=== PATIENT | male | born 1960 | race Caucasian/White ===

== ENCOUNTER 2016-12-11 21:40 | Emergency (ER) | payer OTHER ==
[~2016-12-11] VITALS: Ht 179.1 cm; Wt 106.0 kg
[~2016-12-11 21:40] MED LIST: BNC40 PO; EZET10TA63 PO
[2016-12-11 21:45] VITALS: TEMP 36.4; Ht 179.1 cm; Wt 106.0 kg
[2016-12-11] MEDS ORDERED: SODIUM CHLORIDE 0.9% 1000ML 1,000 ML IV STA (21:59)
[2016-12-11] MEDS ORDERED: ONDANSETRON INJ 2 MG/ML 2 ML VIAL IV STA (21:59)
[2016-12-11] MEDS ORDERED: HYDROmorphone INJ 1 MG/ML SYR IV STA (21:59)
[2016-12-11] MEDS ORDERED: OPTIRAY 320 IV PRN (22:15)
[2016-12-11] MEDS ORDERED: METF-383 PO (22:19)
[2016-12-11] MEDS ORDERED: CLB/200 PO (22:19)
[2016-12-11] MEDS ORDERED: LOSA50TA6 PO (22:19)
[2016-12-11 22:32] LABS: BASO % 0.1 %; BASO ABS # 0.01 K/uL (0-0.2); COMPLETE YES; EOS % 1.5 %; HEMATOCRIT 42.4 % (42-52); IG% 0.7 %; LYMPH % 24.5 %; LYMPH ABS # 2.31 K/uL (1.2-3.4); MEAN CELL VOLUME 85.7 fL (80-100); MEAN CORPUSCULAR HEMOGLOBIN 30.5 pg (25-34); MEAN CORPUSCULAR HGB CONC 35.6 g/dl (32-36); MEAN PLATELET VOLUME 9.6 fL (7.4-10.4); MONO % 7.5 %; NEUT % 65.7 %; PLATELET COUNT 207 K/uL (130-400); RED BLOOD COUNT 4.95 M/uL (4.7-6.1); WHITE BLOOD COUNT 9.42 K/uL (4.8-10.8)
[2016-12-11 22:35] LABS: URINE APPEARANCE CLEAR (CLEAR); URINE BILIRUBIN NEG (NEG); URINE COLOR DK YELLOW; URINE NITRITE NEG (NEG); URINE SPECIFIC GRAVITY 1.031 (1.000-1.030); UROBILINOGEN NEG (NEG); ZZUR CULT IF INDIC CLEAN CATCH NO
[2016-12-11 22:37] LABS: MANUAL MICROSCOPIC REQUIRED? NO; REVIEW REQ? NO
[2016-12-11 22:43] LABS: ALT/SGPT 131 U/L (12-78); BLOOD UREA NITROGEN 19 mg/dl (7-18); BUN/CREATININE RATIO 19.2 (10-20); CARBON DIOXIDE 23 mmol/L (21-32); CHLORIDE 105 mmol/L (98-107); GLUCOSE 220 mg/dl (70-99); POTASSIUM 3.9 mmol/L (3.5-5.1); SODIUM 138 mmol/L (136-145)
[2016-12-11 22:46] LABS: ALKALINE PHOSPHATASE 91 U/L (45-117); AST/SGOT 115 U/L (15-37)
[2016-12-11 22:54] LABS: CALCIUM 8.6 mg/dl (8.5-10.1)
[2016-12-11] MEDS ORDERED: DiphenhydrAMINE HCL 50 MG/ML VIAL IV STA (23:01)
[2016-12-11] MEDS ORDERED: METHYLPREDNISOLONE 125 MG VIAL IV STA (23:01)
[2016-12-12] MEDS ORDERED: HYDROmorphone INJ 0.5 MG/0.5 ML SYR IV STA (00:23)
[2016-12-12] MEDS ORDERED: ONDANSETRON INJ 2 MG/ML 2 ML VIAL IV STA (00:23)
[2016-12-12] MEDS ORDERED: ONDANSETRON HOME PACK 4MG OD TAB PO ONE (03:45)
[2016-12-12] MEDS ORDERED: OXYCODONE IR HOME PACK PO ONE (03:45)
[2016-12-12] MEDS ORDERED: OXYC1TAB3 PO (03:56)
[2016-12-12] MEDS ORDERED: ONDA4TAB10 SL (03:56)
--- NOTE | 2016-12-12 04:01 | EMERGENCY ROOM VISIT NOTE ---
History First contact with patient: 21:52 Chief Complaint: ABDOMINAL PAIN Stated Complaint: R FLANK PAIN, ABD PAIN Nursing Triage Summary: Rt side abdominal/flank pain starting two days ago. Increased tonight with nausea/vomiting, pain 10/10 History of Present Illness The patient is a 56 year old male who presents to the Emergency Room with complaints of right-sided abdominal pain which began 3 days ago. The patient states his pain worsened today. He reports the pain is in the middle right abdomen. He has associated nausea and vomiting. He denies any urinary symptoms , changes in bowel movements, chest pain or shortness of breath. The patient denies any history of abdominal surgeries. He rates his overall discomfort a 10 /10. He has not taken any medication for the pain. He reports that he is unable to find a comfortable position. Review of Systems A complete 10 point review of systems was reviewed with the patient with pertinent positives and negatives as per history of present illness. All else were negative. Social History Smoking Status: Unknown if Ever Smoked Current/Historical Medications Scheduled Celecoxib (CeleBREX), 200 MG PO DAILY Ezetimibe (Zetia), 10 MG PO DAILY Losartan Potassium (Cozaar), 50 MG PO DAILY Metformin Hcl (Glucophage), 850 MG PO BID Ondasetron Odt (Zofran Odt), 4 MG SL Q6H Scheduled PRN Oxycodone Ir (Roxicodone Ir), 1-2 TAB PO Q4H PRN for Pain Allergies Coded Allergies: Morphine (Verified Allergy, Mild, 12/11/16) Latex (Unverified Allergy, Unknown, UNKNOWN, 12/11/16) Latex1 -Allergic Contact Dermititis (Unverified Allergy, Unknown, unknown , 12/11/16) Physical Exam Vital Signs Date Time Temp Pulse Resp B/P (MAP) Pulse Ox O2 Delivery O2 Flow Rate FiO2 12/12/16 04:04 84 20 154/70 100 12/12/16 02:19 65 18 152/87 97 Room Air 12/11/16 23:58 84 18 142/83 98 Room Air 12/11/16 21:45 36.4 73 20 158/92 98 Room Air Physical Exam VITALS: Vitals are noted on the nurse's note and reviewed by myself. Vital signs stable. GENERAL: This is a 56-year-old male, in no acute distress, nondiaphoretic, well- developed well-nourished. SKIN: No rashes noted. HEART: Regular rate and rhythm without murmurs gallops or rubs. LUNGS: Clear to auscultation bilaterally without wheezes, rales or rhonchi. ABDOMEN: Positive bowel sounds x 4. Soft, moderate tenderness to palpation over the right mid abdomen. No guarding or rebound tenderness. NEURO: Patient was alert and oriented to person place and time. Medical Decision & Procedures ER Provider Diagnostic Interpretation: CT ABDOMEN & PELVIS: The visualized lower thorax demonstrates dependent atelectasis. Hepatic steatosis. Probable adenomyomatosis of the gallbladder fundus. The spleen, pancreas, and adrenal glands are unremarkable. Probable simple cysts within the left kidney. Otherwise, the kidneys, ureters and urinary bladder are unremarkable. The appendix is unremarkable. The stomach, small bowel, colon are unremarkable. No acute osseous abnormality. Radiologist: Ilir Nicole MD US RUQ: Mild hepatomegaly with increased echogenicity suggesting hepatic steatosis. Within the gallbladder fundus there is mild thickening which may be secondary to under distention, sludge, stones or adenomyomatosis. No gallbladder wall thickening or pericholecystic fluid. The common bile duct is within normal limits measured 2.7 mm. The right kidney is unremarkable. Radiologist: Ilir Nicole MD Laboratory Results 12/11/16 22:08 Red Blood Count 4.95, Mean Corpuscular Volume 85.7, Mean Corpuscular Hemoglobin 30.5, Mean Corpuscular Hemoglobin Concent 35.6, Mean Platelet Volume 9.6, Neutrophils (%) (Auto) 65.7, Lymphocytes (%) (Auto) 24.5, Monocytes (%) (Auto) 7.5, Eosinophils (%) (Auto) 1.5, Basophils (%) (Auto) 0.1, Neutrophils # (Auto) 6.18, Lymphocytes # (Auto) 2.31, Monocytes # (Auto) 0.71, Eosinophils # (Auto) 0.14, Basophils # (Auto) 0.01 12/11/16 22:08 Test 12/11/16 22:08 12/11/16 22:25 White Blood Count 9.42 K/uL (4.8-10.8) Red Blood Count 4.95 M/uL (4.7-6.1) Hemoglobin 15.1 g/dL (14.0-18.0) Hematocrit 42.4 % (42-52) Mean Corpuscular Volume 85.7 fL (80-100) Mean Corpuscular Hemoglobin 30.5 pg (25-34) Mean Corpuscular Hemoglobin Concent 35.6 g/dl (32-36) Platelet Count 207 K/uL (130-400) Mean Platelet Volume 9.6 fL (7.4-10.4) Neutrophils (%) (Auto) 65.7 % Lymphocytes (%) (Auto) 24.5 % Monocytes (%) (Auto) 7.5 % Eosinophils (%) (Auto) 1.5 % Basophils (%) (Auto) 0.1 % Neutrophils # (Auto) 6.18 K/uL (1.4-6.5) Lymphocytes # (Auto) 2.31 K/uL (1.2-3.4) Monocytes # (Auto) 0.71 K/uL (0.11-0.59) Eosinophils # (Auto) 0.14 K/uL (0-0.5) Basophils # (Auto) 0.01 K/uL (0-0.2) RDW Standard Deviation 38.5 fL (36.4-46.3) RDW Coefficient of Variation 12.5 % (11.5-14.5) Immature Granulocyte % (Auto) 0.7 % Immature Granulocyte # (Auto) 0.07 K/uL (0.00-0.02) Anion Gap 10.0 mmol/L (3-11) Est Creatinine Clear Calc Drug Dose 102.6 ml/min Estimated GFR () 97.8 Estimated GFR (Non- 84.4 BUN/Creatinine Ratio 19.2 (10-20) Calcium Level 8.6 mg/dl (8.5-10.1) Total Bilirubin 0.8 mg/dl (0.2-1) Aspartate Amino Transf (AST/SGOT) 115 U/L (15-37) Alanine Aminotransferase (ALT/SGPT) 131 U/L (12-78) Alkaline Phosphatase 91 U/L (45-117) Troponin I < 0.015 ng/ml (0-0.045) Total Protein 7.2 gm/dl (6.4-8.2) Albumin 3.6 gm/dl (3.4-5.0) Globulin 3.6 gm/dl (2.5-4.0) Albumin/Globulin Ratio 1.0 (0.9-2) Lipase 235 U/L (73-393) Urine Color DK YELLOW Urine Appearance CLEAR (CLEAR) Urine pH 5.0 (4.5-7.5) Urine Specific [place] 1.031 (1.000-1.030) Urine Protein NEG (NEG) Urine Glucose (UA) NEG (NEG) Urine Ketones TRACE (NEG) Urine Occult Blood NEG (NEG) Urine Nitrite NEG (NEG) Urine Bilirubin NEG (NEG) Urine Urobilinogen NEG (NEG) Urine Leukocyte Esterase NEG (NEG) Medications Administered Medications (Trade) Dose Ordered Sig/Hina Route Start Time Stop Time Status Last Admin Dose Admin Sodium Chloride 1,000 ml @ 999 mls/hr Q1H1M STAT IV 12/11/16 21:59 12/11/16 22:59 DC 12/11/16 22:19 999 MLS/HR Ondansetron HCl (Zofran Inj) 4 mg NOW STAT IV 12/11/16 21:59 12/11/16 22:01 DC 12/11/16 22:19 4 MG Hydromorphone HCl (Dilaudid Inj) 1 mg NOW STAT IV 12/11/16 21:59 12/11/16 22:01 DC 12/11/16 22:19 1 MG Methylprednisolone Sodium Succinate (Solu-Medrol IV) 125 mg NOW STAT IV 12/11/16 23:01 12/11/16 23:02 DC 12/11/16 23:08 125 MG Diphenhydramine HCl (Benadryl Inj) 25 mg NOW STAT IV 12/11/16 23:01 12/11/16 23:02 DC 12/11/16 23:08 25 MG Hydromorphone HCl (Dilaudid Inj) 0.5 mg NOW STAT IV 12/12/16 00:23 12/12/16 00:24 DC 12/12/16 00:31 0.5 MG Ondansetron HCl (Zofran Inj) 4 mg NOW STAT IV 12/12/16 00:23 12/12/16 00:24 DC 12/12/16 00:32 4 MG Oxycodone HCl (Roxicodone Immediate Rel 5MG Home Pack) 1 homepack UD ONCE PO 12/12/16 03:45 12/12/16 03:46 DC 12/12/16 03:54 1 HOMEPACK Ondansetron HCl (ZOFRAN ODT 4MG Home Pack) 1 homepack UD ONCE PO 12/12/16 03:45 12/12/16 03:46 DC 12/12/16 03:54 1 HOMEPACK ECG Rate (beats per minute): 63 Rhythm: normal sinus Findings: no acute ischemic change, no ectopy ED Course The patient was evaluated as above. Labs were drawn and IV access was obtained. Patient was medicated with 1 L normal saline solution, 1 mg Dilaudid IV and 4 mg Zofran IV. Patient was premedicated with 125 mg IV Medrol and [address] to CT scan. Patient was reevaluated and had mild continued pain. He was given 0.5 mg Dilaudid. Patient was reevaluated and pain has almost resolved. I discussed options of care including admission versus discharge with close follow-up. The patient prefers to be discharged home. Discharge instructions were reviewed with the patient. The patient verbalized understanding of my assessment and treatment plan and was discharged home in good condition. Medical Decision Differential diagnosis includes acute cholecystitis, pancreatitis, hepatitis, renal calculus, pyelonephritis, appendicitis, among others. The patient is a 56-year-old male who presents today complaining of right-sided abdominal pain she did appear very uncomfortable on initial examination but improved after pain medication. Labs revealed no leukocytosis or anemia. LFTs are elevated. Bilirubin within normal limits. Urinalysis was not suggestive of infection and does not show any blood. CT was initially performed to rule out appendicitis and was negative. It did show possible adenomyomatosis of the gallbladder. Right upper quadrant ultrasound was then performed and again demonstrated and no myomatosis and possible sludge within the gallbladder. Given this and the elevated LFTs, I do feel the patient needs further testing. However, the patient is comfortable and I do feel he can have this performed as an outpatient. The patient is from the [facility] and would prefer to follow up there. He was instructed to call his PCP today to arrange follow-up. He was given pain and nausea medication at home. He was instructed to return for worsening of his current condition or any new/concerning symptoms. The patient's case was reviewed with Dr. Ellis, ED attending physician, who agreed with my assessment and treatment plan. Based on the patient's presentation and work up, I feel the patient is stable for outpatient treatment. The patient was educated to return to the emergency department for any worsening of their current condition or new/concerning symptoms. He will follow up with his PCP today. Medication reconciliation: I attest that I have personally reviewed the patient 's current medication list. Blood pressure screening: Patient was found to have an elevated blood pressure and was referred to their primary care provider for recheck and further treatment. [place] Drug Monitoring Program Search Results: patient reviewed within database, no issues identified Impression Primary Impression: Right sided abdominal pain Departure Information Dispostion Home / Self-Care Condition GOOD Prescriptions Ondasetron Odt (ZOFRAN ODT) 4 Mg Tab 4 MG SL Q6H for Nausea, #15 TAB Prov: Mary Young PA-C 12/12/16 Oxycodone Ir (Roxicodone Ir) 5 Mg Tab 1-2 TAB PO Q4H Y for Pain, #15 TAB For Initial Treatment Prov: Mary Young PA-C 12/12/16 Referrals Moisés Morin M.D. (PCP) Patient Instructions My [facility] Additional Instructions You have been treated in the Emergency Department your Abdominal Pain. Laboratory results and imaging studies have ruled out any emergent causes for your abdominal pain which would warrant admission or surgery. You have been prescribed OxyIR to be used for pain control. This is a narcotic medication. You cannot drive or consume alcohol while on this medicine. This medicine should only be used for pain that cannot be controlled with over-the- counter pain medicines. You have been prescribed Zofran to be used for any nausea or vomiting. Take as prescribed. For pain control, you can use the following [id number] medicines (if >12 yo): - Regular strength (325mg/tab) Tylenol (acetaminophen) 2 tabs every 4-6 hours as needed. Do not exceed 12 tablets in a 24 hour period. Avoid taking more than 4 grams (4000 mg) of Tylenol per day. This includes any other sources of acetaminophen you may take on a regular basis. - Regular strength (200 mg/tab) Advil (ibuprofen) 1-2 tabs every 4-6 hours as needed. Do not exceed a dose of 3200 mg per day. Drink plenty of water and stay well hydrated. Call your primary care provider later this morning to schedule follow-up. Return to the emergency department if your symptoms persist despite treatment plan outlined above or if the following symptoms occur: Fevers, vomiting, worsening abdominal pain or any other new/concerning symptoms.
[2016-12-12 04:04] VITALS: BP 154/70; PULSE 84; O2SAT 100
--- NOTE | 2016-12-12 06:46 | DIAGNOSTIC IMAGING REPORT ---
Right upper quadrant ultrasound GALLBLADDER-ABD LIMITED CLINICAL HISTORY: right abd pain, vomiting pain. Nausea. TECHNIQUE: Ultrasound COMPARISON STUDY: None FINDINGS: Fatty infiltration of liver. Slight gallbladder wall thickening. Possible trace gallbladder sludge. Number caliber common bile duct 3 mm. Pancreas and right kidney are unremarkable. IMPRESSION: 1. Fatty infiltration of liver. 2. Slight prominence of the gallbladder wall 3 mm. 3. Trace gallbladder sludge. Electronically signed by: Chicho Ochoa M.D. 12/12/2016 6:45 AM Dictated Date/Time: 12/12/2016 6:44 AM
--- NOTE | 2016-12-12 07:42 | DIAGNOSTIC IMAGING REPORT ---
CT SCAN OF THE ABDOMEN AND PELVIS WITH IV CONTRAST CLINICAL HISTORY: Right lower quadrant abdominal pain. Vomiting. COMPARISON STUDY: No priors. TECHNIQUE: Following the IV administration of 93 cc of Optiray 320, CT scan of the abdomen and pelvis is performed from the lung bases to the proximal femora. Images are reviewed in the axial, sagittal, and coronal planes. IV contrast was administered without complication. Automated dose control exposure was utilized. CT DOSE: 1190.07 mGy.cm FINDINGS: Lung bases: The heart is top normal in size and without pericardial effusion. There are coronary artery calcifications. The lung bases are clear noting minimal dependent atelectasis. There is a tiny hiatal hernia. Liver: The contrast-enhanced liver is enlarged, measuring 19.7 cm in length. The liver demonstrates diffusely diminished attenuation consistent with hepatic steatosis. Fatty sparing is seen adjacent to gallbladder fossa. There is no intrahepatic biliary ductal dilatation. The hepatic veins and portal veins are patent. Gallbladder: Adenomyomatosis is noted in the gallbladder fundus. The gallbladder is otherwise normal in appearance. Spleen: Normal in size and attenuation. Pancreas: Unremarkable. Adrenal glands: Unremarkable. Kidneys: The contrast enhanced kidneys demonstrate mild cortical atrophy and are without hydronephrosis. The kidneys enhance symmetrically. A 5.4 cm cyst or adjacent cyst is noted in the left upper pole. Abdominal vasculature: The abdominal aorta is normal in course and caliber noting mild atherosclerotic calcification. Bowel: The small bowel and colon are normal in course and caliber. There is mild sigmoid diverticulosis without CT evidence of acute diverticulitis. The appendix is well-visualized and normal. Peritoneum: There is no intraperitoneal free air or abdominal ascites. There is a small fat-containing umbilical hernia. Lymphadenopathy: None. Pelvic viscera: There is median lobe hypertrophy of the prostate gland. The bladder is normal as visualized. Skeletal structures: There is mild lumbosacral spondylosis. No lytic or blastic lesions are seen. IMPRESSION: 1. There are no acute infectious or inflammatory findings in the abdomen or pelvis. 2. Hepatomegaly and severe hepatic steatosis. 3. Additional findings as above. Electronically signed by: Bret Infante M.D. 12/12/2016 7:41 AM Dictated Date/Time: 12/12/2016 7:35 AM
== END 2016-12-12 04:06 | disposition home or self-care (01) ==
LOC: C.EDB 21:41
DX: R10.30 Lower abdominal pain, unspecified (principal); Z79.899 Other long term (current) drug therapy; Z88.5 Allergy status to narcotic agent; Z91.040 Latex allergy status

== ENCOUNTER 2019-02-03 12:01 | Inpatient (IN) ==
[2019-02-03] MEDS ORDERED: ASPIRIN CHEW 324 MG PO STA (12:15)
[2019-02-03] MEDS: NITROGLYCERIN SL 0.4 MG/TAB TAB SL PRN ×3 (12:20→12:40)
[2019-02-03 12:22] LABS: Basophils # (auto) 0.03 K/uL (0-0.2); Basophils % (auto) 0.3 %; Eosinophils # (auto) 0.07 K/uL (0-0.5); Eosinophils % (auto) 0.6 %; Hematocrit (blood only) 42.7 % (42-52); Hemoglobin 14.9 g/dL (14.0-18.0); Immature Granulocytes # (auto) 0.14 K/uL (0.00-0.02); Immature Granulocytes % (auto) 1.3 %; Lymphocytes # (auto) 3.39 K/uL (1.2-3.4); Lymphocytes % (auto) 31.1 %; Mean Corpuscular Hgb Conc 34.9 g/dL (32-36); Mean Corpuscular Volume 86.4 fL (80-100); Mean Platelet Volume 9.7 fL (7.4-10.4); Monocytes # (auto) 0.83 K/uL (0.11-0.59); Monocytes % (auto) 7.6 %; Neutrophils # (auto) 6.44 K/uL (1.4-6.5); Neutrophils % (auto) 59.1 %; Platelet Count 228 K/uL (130-400); RDW Coefficient of Variation 12.9 % (11.5-14.5); RDW Standard Deviation 40.9 fL (36.4-46.3); Red Blood Count 4.94 M/uL (4.7-6.1)
[2019-02-03] MEDS ORDERED: MoRPHine SULFATE 2 MG/ML CARP IV STA (12:32)
[2019-02-03] MEDS ORDERED: DiphenhydrAMINE HCL 50 MG/ML VIAL IV STA (12:32)
[2019-02-03] MEDS ORDERED: LORazepam 1 MG/2 ML VIAL IV STA (12:32)
[2019-02-03 12:33] LABS: Partial Thromboplastin Ratio 0.8; Partial Thromboplastin Time 21.3 Seconds (21.0-31.0); Prothrombin Time 10.2 Seconds (9.0-12.0)
[2019-02-03 12:39] LABS: BUN Creatinine Ratio 18.8 (10-20); Blood Urea Nitrogen 22 mg/dl (7-18); Calcium 9.2 mg/dl (8.5-10.1); Carbon Dioxide 23 mmol/L (21-32); Chloride 107 mmol/L (98-107); Creatinine Clr Calc Pharmacy 87.8 ml/min; D Dimer 600 ug/L FEU (0-500); Est GFR (African American) 78.9; Est GFR (Non-African American) 68.1; Glucose 189 mg/dl (70-99); Potassium 4.1 mmol/L (3.5-5.1); Sodium 139 mmol/L (136-145)
[2019-02-03 12:44] LABS: Troponin I < 0.015 ng/ml (0-0.045)
[2019-02-03] MEDS ORDERED: HEPARIN (PORCINE) 1000 UNIT/ML 10 ML (CATH LAB USE ONLY) ONE (12:48)
[2019-02-03] MEDS ORDERED: fentaNYL citrate 100 MCG/2 ML VIAL ONE ×2 (12:48→13:13)
[2019-02-03] MEDS ORDERED: NiCARDipine HCL INJ 2.5 MG/ML 10 ML AMP ONE (12:48)
[2019-02-03] MEDS ORDERED: MIDAZOLAM HCL 1 MG/ML 2ML VIAL ONE ×3 (12:48→13:31)
[2019-02-03] MEDS ORDERED: NITROGLYCERIN/D5W 100MCG/ML 20ML SYR ONE (12:49)
--- NOTE | 2019-02-03 12:55 | XRay Report ---
XR chest 1V portable CLINICAL HISTORY: Chest Pain pain COMPARISON STUDY: No previous studies for comparison. FINDINGS: The bones soft tissues and hemidiaphragms are normal. The cardiomediastinal silhouette is n ormal. The lungs are clear. The pulmonary vasculature is normal. IMPRESSION: Negative chest. The above report was generated using voice recognition software. It may contain grammatical, syntax or spelling errors. Electronically signed by: Chicho Ochoa M.D. 02/03/2019 12:54 PM
--- NOTE | 2019-02-03 13:01 | Cardiology Consultation ---
Date of Consultation February 03, 2019 Assessment & Plan (1) ST elevation MO (STEMI): Presentation consistent with possible ACS and recommend proceeding with emergent cardiac catheterization and likely primary PCI. No apparent contraindications to procedure. Discussed risks, benefits, alternatives of procedure with patient and they are willing to proceed. Further recommendations pending findings of coronary angiography. History of Present Illness History of Present Illness 58-year-old man here with acute chest pain and ECG concerning for acute MO. Patient seen emergently in the ED after heart alert activated after serial EKGs showed lateral ST changes. No prior cardiac history. Cardiac risk factors include hypertension, dyslipidemia, [id number] diabetes. Family history of heart disease involving his father. Patient with 10 out of 10 chest pain and associated nausea diaphoresis. Denies similar symptoms in the past. Pain began around 12 PM occurring at rest. Allergies Allergy/AdvReac Type Severity Reaction Status Date / Time morphine Allergy Mild Verified 06/30/18 15:30 latex Allergy Unknown UNKNOWN Unverified 06/30/18 15:30 Home Medications Home Medications Medication Instructions Recorded Confirmed Type Ezetimibe (Zetia) 10 mg PO DAILY #0 04/19/07 History CELECOXIB (CeleBREX) 200 mg PO DAILY #0 cap 12/11/16 History LOSARTAN POTASSIUM (COZAAR) 50 mg PO DAILY #0 tab 12/11/16 History METFORMIN HCL (GLUCOPHAGE) 850 mg PO BID #0 tab 12/11/16 History Patient History Medical History Obesity (BMI 30.0-34.9) DM II (diabetes mellitus, type II), controlled HLD (hyperlipidemia) HTN (hypertension) ST elevation MO (STEMI) (Acute) Diabetes HLD (hyperlipidemia) HTN (hypertension) Family History Other Coronary heart disease H/O heart artery stent Heart disease Hypertension Social History Preferred Language: Kenyan Communication Ability: Effective 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 Beliefs That Will Affect Care: None marital status: Current Living Situation: Spouse current occupational status: employed Other Information That Helps Us Care for You: No Feels Safe at Home: Yes Safety Concerns: Feels Safe At This Time Smoking Status: Never smoker Hx Alcohol Use: Yes Alcohol Intake Frequency: Holidays/Special Occasions Hx Substance Use: No Review of Systems Review of Systems: All systems reviewed & are unremarkable except as noted in HPI & below Physical Exam Physical Exam: General: Significant chest pain, diaphoretic, distress Eyes: Sclerae anicteric, Lungs: Clear to auscultation bilaterally Cardiac: Regular rate and rhythm, no murmurs Vascular: 2+ radial Abdomen: Soft, nontender, nondistended, positive bowel sounds. Extremities: Well perfused, no peripheral edema Skin: No rashes or lesions. Neuro: Nonfocal Psych: Alert orient x3, normal affect and mood Results & Data Vital Signs (Past 12 Hours) Vital Signs Temp Pulse Pulse Resp BP BP Pulse Ox 02/03/19 12:53 57 L 14 97 02/03/19 12:41 55 L 14 99 02/03/19 12:39 63 19 114/56 L 99 02/03/19 12:30 62 19 95/67 L 99 02/03/19 12:23 73 24 139/86 98 02/03/19 12:22 63 24 139/86 99 02/03/19 12:20 68 17 02/03/19 12:10 68 19 98 02/03/19 12:02 36.5 C 71 20 165/92 H 98 PG Care Time/CCT Total # of Minutes Spent Total Time Spent with Patient: Total time spent is greater than 50% in coordination of care (as documented) at patient's floor/unit and/or counseling patient: (1) ST elevation MO (STEMI) Involved coronary artery: unspecified coronary artery Qualified Code(s): I21.3 - ST elevation (STEMI) myocardial infarction of unspecified site
[2019-02-03] MEDS ORDERED: EPTIFIBATIDE 0.75 MG/ML 75MG VIAL (CATH LAB USE ONLY) ONE (13:42)
[2019-02-03] MEDS ORDERED: EPTIFIBATIDE 2 MG/ML 10 ML VIAL (CATH LAB USE ONLY) ONE (13:42)
[2019-02-03] MEDS ORDERED: TICAGRELOR 90 MG TAB PO ONE (13:43)
[2019-02-03] MEDS ORDERED: ONDANSETRON INJ 2 MG/ML 2 ML VIAL IV PRN ×2 (13:48→14:11)
[2019-02-03] MEDS ORDERED: ICU PROTOCOL FOR HYPERGLYCEMIA PRN ×2 (13:53→14:38)
[2019-02-03] MEDS ORDERED: SODIUM CHLORIDE 0.9% 1000ML 1,000 ML IV SCH (14:00)
--- NOTE | 2019-02-03 14:00 | Pre Anesthesia Assessment ---
Date of Service February 03, 2019 Pre Sedation Assessment Vital Signs Temp Pulse Pulse Resp BP BP Pulse Ox 02/03/19 13:02 57 L 26 H 95 02/03/19 12:53 57 L 14 97 02/03/19 12:41 55 L 14 99 02/03/19 12:39 63 19 114/56 L 99 02/03/19 12:30 62 19 95/67 L 99 02/03/19 12:23 73 24 139/86 98 02/03/19 12:22 63 24 139/86 99 02/03/19 12:20 68 17 02/03/19 12:10 68 19 98 02/03/19 12:02 36.5 C 71 20 165/92 H 98 Cardiovascular RRR, no murmur, no edema Respiratory normal respiratory effort, lungs clear to auscultation Pre-Sedation Airway Assessment Smoking Status: Never smoker Thyromental Distance: > or= 3.5 Finger Breadths Oral Cavity: + WNL Mallampati Class: III Procedure Planning Contraindications for Sedation: none Current Medications Reviewed: Yes Notes The planned sedation has been discussed with the patient. Informed Consent was obtained. I have identified the patient, determined the appropriateness of sedation and have assessed the patient immediately prior to the procedure. All medicine(s) and interventions are by my order.
--- NOTE | 2019-02-03 14:00 | Post Anesthesia Assessment ---
Date of Service February 03, 2019 Post Sedation Assessment Vital Signs Temp Pulse Pulse Resp BP BP Pulse Ox 02/03/19 13:02 57 L 26 H 95 02/03/19 12:53 57 L 14 97 02/03/19 12:41 55 L 14 99 02/03/19 12:39 63 19 114/56 L 99 02/03/19 12:30 62 19 95/67 L 99 02/03/19 12:23 73 24 139/86 98 02/03/19 12:22 63 24 139/86 99 02/03/19 12:20 68 17 02/03/19 12:10 68 19 98 02/03/19 12:02 36.5 C 71 20 165/92 H 98 Recovery Score Activity: Moves 4 extremities Respiration: Deep Breath/Cough Circulation: +/-20% PreAnes Value Consciousness: Fully Awake Oxygen Saturation: O2 needed for >90% Discharge Sedation Level of Care: Fast Track Phase II Post Sedation Plan On clinical assessment, the patient appears to have tolerated the sedation wi thout complications. Patient is recovering as anticipated. Patient will continue to be monitored by nursing and may be discharged when sedation discharge criteria are met per below protocol. Upon Completions of procedure and additional 15 minutes continue every 5 minute vital signs and the P.A.R. score; then discharge to a Phase I or Fast Track to Phase II per the following guidelines: * Discharge Patient to appropriate Phase II area if PAR is 8 or greater or return to pre- procedure baseline. The post - procedure orders will be as directed. * If PAR score is less than 8 or not return to pre-procedure baseline then patient will follow Phase I monitoring till PAR is reached for Phase II. The Phase I may be done in procedure room or may call to secure a Phase I area. * If naloxone or flumazenil are used for reversal, hold in Phase I for continued monitoring from when last reversal dose was given for a minimum of 60 minutes or longer pending the nurse and/or physician discretion of patient condition before discharge to Phase II. Please call the Sedation Physician to re-evaluate and complete post-note for discharge to Phase II area. Do NOT discharge from procedure sedation or Phase 1 until post- sedation evaluation note is complete by procedure /sedation MD Sedation Discharge Instructions to be given to the patient at discharge to home.
--- NOTE | 2019-02-03 14:00 | History & Physical Report ---
Date of Service February 03, 2019 Assessment & Plan (1) ST elevation [place] (STEMI): - Admit to ICU s/p cardiac cath - Acute lateral STEMI - Cardiology consulted - Dr. Morel performing cardiac cath, follows with Dr. Marques as outpatient - Circumflex 100% occluded, 1 ISABEL was placed - Trend cardiac biomarkers, initial set on admission =0.015, monitor for troponin peak - EKG reviewed as above - Check 2 D echo - AM lipid panel and A1C - PT/OT consulted - Start metoprolol tartrate 25 mg BID and titrate up as tolerated - Start lisinopril 5 mg QAM as BP tolerates - Initiate high dose statin therapy: atorvastatin 80 mg daily - Cont asa 81 mg daily - Start Brilinta daily (2) HTN (hypertension): - Antihypertensives as above (3) HLD (hyperlipidemia): - Initiate high dose statin as above. (4) DM II (diabetes mellitus, type II), controlled: - Diet and exercise - Continue ISS with accuchecks for now. Pt maintains on metformin as an outpatient, continue to hold this for now. - A1C with am labs (5) Obesity (BMI 30.0-34.9): - BMI of 32.4, pt will need diet and exercise encouraged upon discharge. (6) DVT prophylaxis: - Teds, asa and Brilinta Dispo: From home, will be in the hospital at least 2 days. History of Present Illness Primary Care Provider: Moisés Morin This is a 58 yo M with PMHx of HTN, DM II, and HLD who presents with acute onset of chest pain. EKG was completed in the ER showing new lateral ST wave changes concerning for [place]. He has no history of cardiac events. The patient reports that his chest pain started abruptly this morning. He worked third audrey ft overnight at [facility], then proceeded to pickle sorter breakfast this morning at [employer]; which included eggs and sausage for breakfast. He vomited after consuming this and become extremely diaphoretic. Patient called a friend who is a nurse, who then came to the half-way where he was sitting in his vehicle and picked him up and brought him to the ER. Patient notes his chest pain was substernal, did not radiate, and was rated 10/10. Patient reports not routinely exercising, but he does walk a lot at work. Patient denies history of smoking and does not drink alcohol routinely. Family history of father with heart disease. Paternal grandmother with hx of HTN and stroke. Pt was taken to the cardiac catheterization lab for STEMI. Circumflex art with 100% occlusion and 1 ISABEL was placed. Allergies Allergy/AdvReac Type Severity Reaction Status Date / Time morphine Allergy Mild Verified 06/30/18 15:30 latex Allergy Unknown UNKNOWN Unverified 06/30/18 15:30 Home Medications Home Medications Medication Instructions Recorded Confirmed Type Ezetimibe (Zetia) 10 mg PO DAILY #0 04/19/07 History CELECOXIB (CeleBREX) 200 mg PO DAILY #0 cap 12/11/16 History LOSARTAN POTASSIUM (COZAAR) 50 mg PO DAILY #0 tab 12/11/16 History METFORMIN HCL (GLUCOPHAGE) 850 mg PO BID #0 tab 12/11/16 History Past Med/Surg History Medical History Obesity (BMI 30.0-34.9) DM II (diabetes mellitus, type II), controlled HLD (hyperlipidemia) HTN (hypertension) ST elevation [place] (STEMI) (Acute) Diabetes HLD (hyperlipidemia) HTN (hypertension) Family History Other Coronary heart disease H/O heart artery stent Heart disease Hypertension Social History Preferred Language: Kinyarwanda Communication Ability: Effective Live In Caregiver Required: No Beliefs That Will Affect Care: None marital status: Current Living Situation: Spouse current occupational status: employed Other Information That Helps Us Care for You: No Feels Safe at Home: Yes Safety Concerns: Feels Safe At This Time Smoking Status: Never smoker Hx Alcohol Use: Yes Alcohol Intake Frequency: Holidays/Special Occasions Hx Substance Use: No Review of Systems Review of Systems: Constitutional: No fever, sweats or chills Eyes: No diplopia, no worsening or blurred vision ENT: normal hearing, no trouble swallowing Respiratory: No cough, sputum, dyspnea at rest or on exertion Cardiovascular: As per HPI. Patient rates the chest pain as 2/10, slight discomfort but nothing compared to earlier today. Abdomen: No pain, nausea, + vomiting x 1 prior to coming to ER, diarrhea or constipation Musculoskeletal: No joint pain, calf pain, swelling Neurologic: No weakness, numbness/tingling, or balance problems Psychiatric: No anxiety or depression Skin: No rash or itch Physical Exam Physical Exam: General: awake, alert, no apparent distress, obese Head: Normocephalic, atraumatic ENT: PERRL, EOMI, no pharyngeal exudate, mucous membranes moist Chest: Clear to auscultation, on 2L via NC, no adventitious breath sounds Cardiac: Regular rate and rhythm, no murmur, no JVD, normal peripheral pulses, good capillary refill Abdominal: NABS x 4 quadrants, soft, nontender to palpation, no rebound, guarding or tenderness Extremities: +R radial TR band in place, normal inspection, no peripheral edema or erythema, calfs nontender to palpation Psych: Normal mood and affect Neuro: AAO x 3, strength intact bilaterally and related 5/5, no motor deficits, speech is clear, no peripheral sensory deficits Results & Data Vital Signs (Past 12 Hours) Vital Signs Temp Pulse Pulse Resp BP BP Pulse Ox 02/03/19 13:02 57 L 26 H 95 02/03/19 12:53 57 L 14 97 02/03/19 12:41 55 L 14 99 02/03/19 12:39 63 19 114/56 L 99 02/03/19 12:30 62 19 95/67 L 99 02/03/19 12:23 73 24 139/86 98 02/03/19 12:22 63 24 139/86 99 02/03/19 12:20 68 17 02/03/19 12:10 68 19 98 02/03/19 12:02 36.5 C 71 20 165/92 H 98 Diagnostic Findings XR chest 1V portable CLINICAL HISTORY: Chest Pain pain COMPARISON STUDY: No previous studies for comparison. FINDINGS: The bones soft tissues and hemidiaphragms are normal. The cardiomediastinal silhouette is normal. The lungs are clear. The pulmonary vasculature is normal. IMPRESSION: Negative chest. Supervising Physician Co-Signing Physician Notes I have seen the patient with Alison Meehan and agree with exam , assessment and plan. PG Care Time/CCT Total # of Minutes Spent Total Time Spent with Patient: Total time spent is greater than 50% in coordination of care (as documented) at patient's floor/unit and/or counseling patient: (1) ST elevation [place] (STEMI) Involved coronary artery: unspecified coronary artery Qualified Code(s): I21.3 - ST elevation (STEMI) myocardial infarction of unspecified site
--- NOTE | 2019-02-03 14:06 | Cardiac Catheterization ---
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 Clinical evaluation leading to the procedure CAD Presenation: STEMI Anginal Classification: CCS IV Heart Failure: No Cardiogenic Shock within 24 Hours: No Cardiac Arrest within 24 Hours: No Imaging Studies Past 6 Months: No Stress Studies Past 6 Months: No Diagnostic Physicians Name: Carlos Morel MD Status: Emergency Closure Device Percutaneous Entry Location: Radial Closure Device: Radial Band Recommendations: PCI without planned CABG PCI Indication: Immediate PCI for STEMI First Noted: Subsequent EKG Lesion Segment Name: Mid circumflex Culprit Artery: Yes Stenosis Prior to Rx (%): 100 Chronic Total Occlusion: No IVUS: No FFR: No Pre-Procedure TIA Flow: 0 Previously Treated Lesion: No Lesion Complexity: Non-High/Non-C Lesion Length (mm): 20 Thrombus Present: Yes Bifurcation Lesion: No Guidewire Across Lesion: Stenosis Post-Procedure (%): 0 Post-Procedure TIA Flow: 3 Devices(s) Deployed: Yes Yes Intraprocedure Events Significant Disection: No Perforation: No Cardiac Cath Procedure Full Procedure Date February 03, 2019 Pre-Procedure Diagnosis Pre-Procedure Diagnosis: STEMI AUC Score AUC Score: 9 Post-Procedure Diagnosis Post-Procedure Diagnosis: Severe CAD, Successful PCI and Normal Intracardiac Pressures Procedure(s) Performed Procedure(s) Performed: Coronary Angiography, Left Heart Cath and Drug Eluting Stent Board Certified Family Physician Carlos Morel MD Quick Technician(s) Anatoly Estimated Blood Loss Estimated Blood Loss: 15 Medication(s) Medication(s): Fentanyl, Heparin, Integrilin, Lidocaine 1%, Nicardipine, Nitroglycerin and Versed Medication(s): Ticagrelor Summary of Findings Indication: STEMI/Heart Alert Access: 6 Fr right radial artery Catheters: Buckley, EBU 3.5 guide Findings: LM -Short, luminal irregularities LAD -moderate caliber, 20% proximal to mid disease, distal luminal irregularities as wraps around apex, moderate caliber second diagonal without significant disease Circumflex -large caliber vessel, 100% acute occlusion after takeoff of OM 2 RCA -dominant, moderate caliber, 30 to 40% mid segment, luminal irregularities and PDA/PAV LVEDP -13 -- PCI -- Antithrombotic therapy: Heparin, Integrilin, ticagrelor Procedure: Left main cannulated with EBU 3.5 guide BMW wire passed across lesion into distal vessel Mid circumflex lesion predilated with 2.5 compliant balloon Dilated lesion stented with 3.5 x 30 mm resolute drug-eluting stent Stent post-dilated with 3.75 noncompliant balloon Post procedure superior branch of large PLB occluded in the midsegment with apparent thrombus Superior PLB gently dilated with 2.0 balloon, IC Integrilin, IC nicardipine, nitroglycerin administered Post procedure TIA 3 flow, stent well expanded with minimal residual stenosis. Mild residual thrombus and mid segment of superior branch of left PLB with TIA II flow in the distal vessel Arterial Closure: TR band Summary: 1. Acute 100% mid circumflex occlusion 2. Mild to moderate non-culprit coronary artery disease -40% mid RCA 20-30% proximal LAD 3. Normal intracardiac filling pressure 4. Successful PCI of mid circumflex with single drug-eluting stent (3.5 x 30 mm resolute; postdilated with 3.75 NC). Recommendations: Admit to ICU for continued monitoring Loaded with ticagrelor 180 mg in cardiac cath lab radiology technologist Continue dual-antiplatelet therapy for at least 1 year. Continue Integrilin for 4 hours Trend troponins until peak, Check Echo Uptitrate beta-graham/ASHLEIGH as BP allows High-dose statin Consult cardiac Rehab Hemodynamics Rest Ao:: 110/65/85 Final Ao: 92/60/75 LV: 116/13 Recommendations Recommendations: PCI without planned CABG Specimens Specimens: None Radiation Exposure (mGy) 3546 Contrast (mls) 160 Fluids (cc crystalloids) Fluids (cc crystalloids): 70 Drains Drains: None Anesthesia Moderate Procedural Complication(s) None Disposition ICU
[2019-02-03] MEDS ORDERED: ACETAMINOPHEN 325 MG TAB PO PRN (14:11)
[2019-02-03 14:16] LABS: Estimated Average Glucose 163 mg/dl; Hemoglobin A1C 7.3 % (4.5-5.6)
[2019-02-03] MEDS ORDERED: EPTIFIBATIDE BOLUS/DRIP IV STA (14:31)
[2019-02-03 14:44] LABS: Chol HDL Ratio 5; Cholesterol 207 mg/dl (0-200); HDL Cholesterol 44 mg/dl; LDL Cholesterol Calculated 121 mg/dl; Triglycerides 212 mg/dl (0-150); VLDL Cholesterol 42 mg/dl
--- NOTE | 2019-02-03 14:45 | Critical Care Consultation ---
Date of Consultation February 03, 2019 Assessment & Plan (1) ST elevation [place] (STEMI): (2) DM II (diabetes mellitus, type II), controlled: Reason Critically Ill: 58-year-old male without significant cardiac history presented with STEMI and underwent cath with PCI to circumflex. Neuro - [facility] ICU: Negative Cardiac - STEMIpatient had lateral ST changes on serial EKGs, now status post successful PCI to circumflex which was 100% occluded -Troponin was negative but onset was only 30 minutes prior to draw, will will likely be elevated post cath and will follow for downtrend -Follow-up repeat EKGs -Follow-up echo in a.m. -Continue Integrilin drip for 4 hours post arrival per cardiology -Start ASA, Lipitor, lisinopril, MTP -Follow-up lipid panel HTNwe will hold Benicar as patient is to receive lisinopril, confirmed with patient that he did not have a drug allergy to lisinopril but had switched after there was a drug recall for preference Respiratory - Patient asymptomatic, comfortable on room air GI - Heart healthy carb consistent diet RENAL/LYTES - We will maximize electrolytes, routine BMPs - No issues at this time ENDO - Diabetic type IIwe will hold metformin for at least the next 48-hour, transition to sliding scale -Hemoglobin A1c 7.3 HEME - H&H stable, monitor routine CBC in a.m. ID - No indication for infectious process at this time LINES/IV ACCESS - Peripheral IVs DVT PROPHYLAXIS - SCDs I have personally spent 35 minutes of critical care time in the direct management of this patient. This is a life/limb threatening event. This includes time spent evaluating patient, direct bedside care, chart review, placing orders, interpretation of diagnostic studies, discussion with consultants, patient, and family members, as well as other required patient management activities. This time is exclusive of all separately billable procedures, and teaching time and separate from and in addition to any other critical care service time. Thank you for allowing us to participate in the care of this patient. Please refer to my attending physician's documentation for any further recommendations. (3) HLD (hyperlipidemia): (4) HTN (hypertension): Supervising Physician Co-Signing Physician Notes I have personally evaluated and examined this patient. I agree with assessment and plan of Maynor CONTRERAS. History of Present Illness Attending Physician: Juli Coulter MD History of Present Illness Patient is a 58-year-old male who who presented to the emergency department with what he describes as substernal chest pain/pressure rated 10 out of 10 started around 12 PM this afternoon. Pain was associated with nausea and vomiting, diaphoresis, and shortness of breath. On arrival to the emergency department serial EKGs showed lateral ST changes. Heart code was initiated and patient taken to [facility] where it was found he had 100% occlusion of the circumflex. Patient bolused with Integrilin and successful PCI was placed and patient transferred to ICU. On arrival patient is calm and appears relaxed. He reports mild substernal discomfort that he rates 1 out of 10. He states that he is also slightly dizzy but denies headache, confusion, or syncope. He currently denies shortness of breath, nausea or vomiting, diaphoresis, palpitations, abdominal pain. Per discussion with Dr. Morel, will continue Integrilin infusion for 4 hours from arrival. Patient currently hemodynamically stable and will remain in ICU overnight. Allergies Allergy/AdvReac Type Severity Reaction Status Date / Time morphine Allergy Mild Verified 06/30/18 15:30 latex Allergy Unknown UNKNOWN Unverified 06/30/18 15:30 Home Medications Home Medications Medication Instructions Recorded Confirmed Type Ezetimibe (Zetia) 10 mg PO DAILY #0 04/19/07 History CELECOXIB (CeleBREX) 200 mg PO DAILY #0 cap 12/11/16 History LOSARTAN POTASSIUM (COZAAR) 50 mg PO DAILY #0 tab 12/11/16 History METFORMIN HCL (GLUCOPHAGE) 850 mg PO BID #0 tab 12/11/16 History Patient History Medical History Obesity (BMI 30.0-34.9) DM II (diabetes mellitus, type II), controlled HLD (hyperlipidemia) HTN (hypertension) ST elevation [place] (STEMI) (Acute) Diabetes HLD (hyperlipidemia) HTN (hypertension) Family History Other Coronary heart disease H/O heart artery stent Heart disease Hypertension Social History Preferred Language: Swedish Communication Ability: Effective 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 Beliefs That Will Affect Care: None marital status: Current Living Situation: Spouse current occupational status: employed Other Information That Helps Us Care for You: No Feels Safe at Home: Yes Safety Concerns: Feels Safe At This Time Smoking Status: Never smoker Hx Alcohol Use: Yes Alcohol Intake Frequency: Holidays/Special Occasions Hx Substance Use: No Review of Systems Review of Systems: All systems reviewed & are unremarkable except as noted in HPI & below Physical Exam Constitutional: WD/WN, vitals as above Eyes: PERRL, conjunctivae normal, anicteric sclerae ENMT: external ear and nose normal, oropharynx normal Neck: trachea midline, no thyromegaly Respiratory: normal respiratory effort, lungs clear to auscultation normal respiratory effort Cardiovascular: RRR, no murmur, no edema Rate/Rhythm: regular rate and regular rhythm Heart Sounds: normal S1 and normal S2 Vessels: no JVD Extremities: normal capillary refill; no edema Gastrointestinal (Abdomen): normal bowel sounds, soft, nontender, no hepatosplenomegaly Musculoskeletal: no cyanosis or clubbing, extremities motor strength 5/5 Skin: no rashes, warm and dry Neurologic: PERRL, EOMI, accommodation nl, no face palsy, no dysarthria Psychiatric: A+Ox3, euthymic affect Results & Data Vital Signs (Past 12 Hours) Vital Signs Temp Pulse Pulse Resp BP BP Pulse Ox 02/03/19 13:02 57 L 26 H 95 02/03/19 12:53 57 L 14 97 02/03/19 12:41 55 L 14 99 02/03/19 12:39 63 19 114/56 L 99 02/03/19 12:30 62 19 95/67 L 99 02/03/19 12:23 73 24 139/86 98 02/03/19 12:22 63 24 139/86 99 02/03/19 12:20 68 17 02/03/19 12:10 68 19 98 02/03/19 12:02 36.5 C 71 20 165/92 H 98 PG Care Time/CCT Total # of Minutes Spent Total Time Spent with Patient: Total time spent is greater than 50% in coordination of care (as documented) at patient's floor/unit and/or counseling patient: Critical Care Time: Yes Total Critical Care Time: 35 (1) ST elevation [place] (STEMI) Involved coronary artery: unspecified coronary artery Qualified Code(s): I21.3 - ST elevation (STEMI) myocardial infarction of unspecified site
[2019-02-03] MEDS ORDERED: Nursing to Pharmacy Communication ONE (14:59)
[2019-02-03] MEDS ORDERED: EPTIFIBATIDE 75 MG/100 ML VIAL IV SCH (15:15)
[2019-02-03] MEDS ORDERED: NITROGLYCERIN 2% OINTMENT 30GM TUBE EXT PRN (15:49)
[2019-02-03] MEDS: ACETAMINOPHEN 325 MG TAB PO PRN (16:20)
[2019-02-03] MEDS ORDERED: DEXTROSE 50% 50 ML SYRINGE IV PRN (16:45)
[2019-02-03] MEDS ORDERED: CARBOHYDRATES FOR HYPOGLYCEMIA PO PRN (16:45)
[2019-02-03] MEDS ORDERED: GLUCAGON FOR INJ 1 MG VIAL IM PRN (16:45)
[2019-02-03] MEDS ORDERED: GLUCOSE 10 TABS/TUBE PO PRN (16:45)
[2019-02-03] MEDS ORDERED: GLUCOSE 40% GEL 15 GM TUBE PO PRN (16:45)
[2019-02-03] MEDS ORDERED: PHARMACY GLYCEMIC MGMT CONSULT PRN (16:48)
[2019-02-03] MEDS: INSULIN ASPART 100 UNITS/ML 3 ML PEN SC SCH ×2 (17:56→20:56)
--- NOTE | 2019-02-03 17:59 | Emergency Department Note ---
Entered by Susan Agudelo acting as a scribe for History of Present Illness General Chief complaint: Chest Pain Stated complaint: chest pain - sweating - stomach pain - sob - shaky Time Seen by Provider: 02/03/19 12:08 Source: patient History of Present Illness Onset (ago): day(s) 1 Location: chest Radiation: non-radiation Pain Consistency: + other (sudden) Maximum Pain Intensity: 10 Current Pain Intensity: 9 Quality: + other (pressure) Associated symptoms: + denies other symptoms (hemoptysis), + cough, + diaphoresis and + nausea/vomiting The patient is a 58 year old male who presents to the Emergency Room with complaints of sudden chest pain starting an hour ago. The patient states that he was sleeping when he suddenly started having pressure in the center of his chest. He states that along with the pain he has had diaphoresis, nausea, and vomiting. He currently rates his pain as a 9/10 in severity. He notes that his father and grandmother both have a significant cardiac history with his fathers being at age 68. The patient complains of a cough. The patient denies the pain radiating, taking anything for the pain, a cardiac history, recent travel, hemoptysis, and taking hormone pills. Home Medications Home Medications Medication Instructions Recorded Confirmed Type Ezetimibe (Zetia) 10 mg PO DAILY #0 04/19/07 History CELECOXIB (CeleBREX) 200 mg PO DAILY #0 cap 12/11/16 History LOSARTAN POTASSIUM (COZAAR) 50 mg PO DAILY #0 tab 12/11/16 History METFORMIN HCL (GLUCOPHAGE) 850 mg PO BID #0 tab 12/11/16 History Allergies Allergy/AdvReac Type Severity Reaction Status Date / Time morphine Allergy Mild Verified 06/30/18 15:30 latex Allergy Unknown UNKNOWN Unverified 06/30/18 15:30 Past Med/Surg History Medical History Obesity (BMI 30.0-34.9) DM II (diabetes mellitus, type II), controlled HLD (hyperlipidemia) HTN (hypertension) ST elevation DC (STEMI) (Acute) Diabetes HLD (hyperlipidemia) HTN (hypertension) Family History Other Coronary heart disease H/O heart artery stent Heart disease Hypertension Social History Preferred Language: Bengali Communication Ability: Effective Automatic Buffing Wheel Former Required: No Beliefs That Will Affect Care: None marital status: Current Living Situation: Spouse current occupational status: employed Other Information That Helps Us Care for You: No Feels Safe at Home: Yes Safety Concerns: Feels Safe At This Time Smoking Status: Never smoker Hx Alcohol Use: Yes Alcohol Intake Frequency: Holidays/Special Occasions Hx Substance Use: No Review of Systems See HPI for pertinent positives & negatives. and A total of 10 systems reviewed and were otherwise negative Physical Exam Vital Signs Vital Signs - 24 hr 02/03/19 12:02 02/03/19 12:10 02/03/19 12:20 Temperature 36.5 C Temperature Source Oral Sepsis Recent Fever Within 48 Hours No Sepsis Action Taken by Nursing No Action Required Pulse Rate 71 68 68 Pulse Rate [Apical] Pulse Rate from SpO2 Sensor Pulse Rhythm Regular Pulse Rhythm [Apical] Pulse Strength Normal Respiratory Rate 20 19 17 Respiratory Effort / Characteristics Non-Labored Spontaneous Respiratory Depth Normal Respiratory Pattern Regular Blood Pressure 165/92 H Blood Pressure [Left Arm] Blood Pressure Mean 116 Blood Pressure Mean [Left Arm] Blood Pressure Position Sitting Blood Pressure Position [Left Arm] Pulse Oximetry 98 98 Oxygen Delivery Method Room Air Room Air 02/03/19 12:22 02/03/19 12:23 02/03/19 12:30 Temperature Temperature Source Sepsis Recent Fever Within 48 Hours Sepsis Action Taken by Nursing Pulse Rate 73 62 Pulse Rate [Apical] 63 Pulse Rate from SpO2 Sensor 73 63 Pulse Rhythm Pulse Rhythm [Apical] Regular Pulse Strength Respiratory Rate 24 24 19 Respiratory Effort / Characteristics Non-Labored Respiratory Depth Normal Respiratory Pattern Regular Blood Pressure 139/86 95/67 L Blood Pressure [Left Arm] 139/86 Blood Pressure Mean 103 76 Blood Pressure Mean [Left Arm] 103 Blood Pressure Position Blood Pressure Position [Left Arm] Sitting Pulse Oximetry 99 98 99 Oxygen Delivery Method 02/03/19 12:39 02/03/19 12:41 02/03/19 12:53 Temperature Temperature Source Sepsis Recent Fever Within 48 Hours Sepsis Action Taken by Nursing Pulse Rate 63 55 L 57 L Pulse Rate [Apical] Pulse Rate from SpO2 Sensor 61 58 L Pulse Rhythm Pulse Rhythm [Apical] Pulse Strength Respiratory Rate 19 14 14 Respiratory Effort / Characteristics Respiratory Depth Respiratory Pattern Blood Pressure 114/56 L Blood Pressure [Left Arm] Blood Pressure Mean 75 Blood Pressure Mean [Left Arm] Blood Pressure Position Blood Pressure Position [Left Arm] Pulse Oximetry 99 99 97 Oxygen Delivery Method Room Air 02/03/19 13:02 Temperature Temperature Source Sepsis Recent Fever Within 48 Hours Sepsis Action Taken by Nursing Pulse Rate 57 L Pulse Rate [Apical] Pulse Rate from SpO2 Sensor Pulse Rhythm Pulse Rhythm [Apical] Pulse Strength Respiratory Rate 26 H Respiratory Effort / Characteristics Respiratory Depth Respiratory Pattern Blood Pressure Blood Pressure [Left Arm] Blood Pressure Mean Blood Pressure Mean [Left Arm] Blood Pressure Position Blood Pressure Position [Left Arm] Pulse Oximetry 95 Oxygen Delivery Method Room Air GENERAL: He is oriented to person, place, and time. He appears well-developed and well-nourished. He does not appear distressed. HENT: Exam performed. - Head: Normocephalic and atraumatic. - Right Ear: External ear normal. No mastoid tenderness. - Left Ear: External ear normal. No mastoid tenderness. - Mouth/Throat: The oropharynx is clear and moist. No trismus in the jaw. No dental abscesses or uvula swelling. No oropharyngeal exudate or tonsillar abscesses. EYES: Conjunctivae and EOM are normal. Pupils are equal, round, and reactive to light. Right eye exhibits no discharge. Left eye exhibits no discharge. No scleral icterus. NECK: Normal range of motion. Neck supple. No JVD present. No spinous process tenderness present. No carotid bruit present. No rigidity. No tracheal deviation and normal range of motion present. No Brudzinski's sign and no Kernig's sign noted. CV: Normal rate, regular rhythm, normal heart sounds and intact distal pulses. There is no peripheral edema. Palpable radial pulses bue. PULM/CHEST: Effort normal and breath sounds normal. No respiratory distress. No stridor. He has no wheezes. He has no rales. - Chest Wall: He exhibits no tenderness. ABD: The abdomen is soft. Bowel sounds are normal. He has no distension. No mass is present. There is no tenderness. There is no rebound, no guarding, no Clark's sign and no tenderness at McBurney's point. Rovsig negative. MUSC/SKEL: Normal range of motion. There is no peripheral edema, tenderness or deformity. LYMPH: No cervical adenopathy. NEURO: He is alert and oriented to person, place, and time. He has normal strength. No cranial nerve deficit or sensory deficit. Coordination and gait normal. GCS eye subscore is 4. GCS verbal subscore is 5. GCS motor subscore is 6. Cerebellar tests wnl. SKIN: Skin is warm and dry. He is not diaphoretic. PSYCH: He has a normal mood and affect. Behavior is normal. Judgment and thought content normal. Course 1211: Past medical records reviewed. The patient was evaluated in room A9B. A complete history and physical exam was performed. His EKG at this time was sinus rhythm at a rate of 64. MD, QRS, and QT-c intervals are within normal limits. No ST elevation or depression. 1223: The patient is having increasing chest pain and he said that the Nitroglycerin did not help. We repeated an EKG at this time that showed sinus rhythm at a rate of 56. MD, QRS, and QT-c intervals are within normal limit. TWI in aVL and mild ST elevation in leads II, III, and aVF that were not present in the initial EKG. 1235: The patient has been having increasing chest pain and is now diaphoretic. He says that the Nitroglycerin and Morphine are not helping with his chest pain. We again repeated his EKG and it shows sinus rhythm at a rate of 56. MD, QRS, and QT-c intervals are within normal limits. ST elevation in leads II, III, aVF, [address] depression in V1 and V2. I called a heart alert at this time. 1252: Dr. Morel- Cardiology is at bedside given the patient's increasing discomfort, chest pressure substernally with no radiation, and diaphoresis, he will be taken to the wood and wood products labourer. Consultations Consultation #1: Dr. Morel- Cardiology is at bedside given the patient's increasing discomfort, chest pressure substernally with no radiation, and diaphoresis, he will be taken to the wood and wood products labourer. Time: 12:52 Administered Medications Acetaminophen (Tylenol) 650 mg PO Q4H PRN PRN Reason: Mild Pain (scale 1-3) Stop: 03/05/19 13:47 Last Admin: 02/03/19 16:20 Dose: 650 mg Documented by: [id number] Sodium Chloride (Nss 1000ml) 1,000 mls @ 100 mls/hr IV .Q10H BRITTNY Stop: 02/03/19 21:29 Last Admin: 02/03/19 14:30 Dose: 100 mls/hr Documented by: [id number] Eptifibatide (Integrilin) 75 mg in 100 mls @ 17.632 mls/hr IV .Q5H41M [facility]; Protocol Stop: 02/03/19 18:00 Last Admin: 02/03/19 15:27 Dose: 2 mcg/kg/min, 17.6 mls/hr Documented by: [id number] Cosigned by: [id number] Nitroglycerin (Nitrostat) 0.4 mg SL UD PRN PRN Reason: Chest Pain Stop: 03/05/19 12:14 Last Admin: 02/03/19 12:40 Dose: 0.4 mg Documented by: [id number] Admin: 02/03/19 12:28 Dose: 0.4 mg Documented by: [id number] Admin: 02/03/19 12:20 Dose: 0.4 mg Documented by: [id number] Nitroglycerin (Nitro-Bid 2%) 1 inch EXT Q6H PRN PRN Reason: Chest Pain Stop: 03/05/19 15:59 Last Admin: 02/03/19 16:21 Dose: 1 inch Documented by: [id number] Discontinued Medications Aspirin (Aspirin) 324 mg PO NOW STA Stop: 02/03/19 12:16 Last Admin: 02/03/19 12:21 Dose: 324 mg Documented by: [id number] Diphenhydramine HCl (Benadryl) 25 mg IV NOW STA Stop: 02/03/19 12:33 Last Admin: 02/03/19 12:37 Dose: 25 mg Documented by: [id number] Eptifibatide (Integrilin (Client Onboarding Analyst Use Only)) Confirm Administered Dose 20 mg .ROUTE .STK-MED ONE Stop: 02/03/19 13:43 Last Admin: 02/03/19 13:53 Dose: 19 ml Documented by: [id number] Eptifibatide (Integrilin (Client Onboarding Analyst Use Only)) Confirm Administered Dose 75 mg . ROUTE .STK-MED ONE Stop: 02/03/19 13:43 Last Increment: 02/03/19 13:53 Dose: 17.3 mg Documented by: [id number] Fentanyl Citrate (Fentanyl Citrate) Confirm Administered Dose 100 mcg .ROUTE .S TK-MED ONE Stop: 02/03/19 12:49 Last Admin: 02/03/19 13:50 Dose: 100 mcg Documented by: [id number] Fentanyl Citrate (Fentanyl Citrate) Confirm Administered Dose 100 mcg .ROUTE .STK-MED ONE Stop: 02/03/19 13:14 Last Increment: 02/03/19 13:52 Dose: 25 mcg Documented by: [id number] Heparin Sodium (Porcine) (Heparin Iv Bolus (Client Onboarding Analyst Use Only)) Confirm Administered Dose 10,000 units .ROUTE .STK-MED ONE Stop: 02/03/19 12:49 Last Admin: 02/03/19 13:51 Dose: 10,000 units Documented by: [id number] Heparin Sodium/Sodium Chloride (Heparin/Nss 1000 Unit/500ml Flush Bag) Confirm Administered Dose 3,000 units IV .STK-MED ONE Stop: 02/03/19 12:50 Last Admin: 02/03/19 13:51 Dose: 3,000 units Documented by: [id number] Lorazepam (Ativan) 1 mg in 2 mls @ 2 mls/min IV NOW STA Stop: 02/03/19 12:33 Last Admin: 02/03/19 12:42 Dose: 2 mls/min Documented by: [id number] Midazolam HCl (Versed) Confirm Administered Dose 2 mg .ROUTE .ST-MED ONE Stop: 02/03/19 12:49 Last Admin: 02/03/19 13:51 Dose: 2 mg Documented by: [id number] Midazolam HCl (Versed) Confirm Administered Dose 2 mg .ROUTE .STK-MED ONE Stop: 02/03/19 13:14 Last Admin: 02/03/19 13:52 Dose: 2 mg Documented by: [id number] Midazolam HCl (Versed) Confirm Administered Dose 2 mg .ROUTE .STK-MED ONE Stop: 02/03/19 13:32 Last Admin: 02/03/19 13:52 Dose: Not Given Documented by: [id number] Morphine Sulfate (Morphine Sulfate) 2 mg IV NOW STA Stop: 02/03/19 12:33 Last Admin: 02/03/19 12:37 Dose: 2 mg Documented by: [id number] Nicardipine HCl (Cardene) Confirm Administered Dose 25 mg .ROUTE .STK-MED ONE Stop: 02/03/19 12:49 Last Admin: 02/03/19 13:50 Dose: 25 mg Documented by: [id number] Nitroglycerin/Dextrose (Nitroglycerin/D5w 100 Mcg/Ml 20ml Syringe) Confirm Administered Dose 2,000 mcg .ROUTE .STK-MED ONE Stop: 02/03/19 12:50 Last Admin: 02/03/19 13:52 Dose: 2,000 mcg Documented by: [id number] Ticagrelor (Brilinta) Confirm Administered Dose 180 mg PO .[employer]-MED ONE Stop: 02/03/19 13:44 Last Admin: 02/03/19 13:53 Dose: 180 mg Documented by: [id number] Medical Decision Making Medical Records Attestation: I reviewed the patient's medical records. Home Medications Current Medication List: was personally reviewed by me Laboratory Data Attestation: I reviewed the patient's lab results. Result diagrams: 02/03/19 12:13 02/03/19 12:13 Lab Results 02/03/19 02/03/19 02/03/19 Range/Units 12: 12: 12:13 WBC 10.90 H (4.8-10.8) K/uL RBC 4.94 (4.7-6.1) M/uL Hgb 14.9 (14.0-18.0) g/dL Hct 42.7 (42-52) % MCV 86.4 (80-100) fL MCH 30.2 (25-34) pg MCHC 34.9 (32-36) g/dL RDW Std Deviation 40.9 (36.4-46.3) fL RDW Coeff of Serene 12.9 (11.5-14.5) % Plt Count 228 (130-400) K/uL MPV 9.7 (7.4-10.4) fL Immature Gran % (Auto) 1.3 % Neut % (Auto) 59.1 % Lymph % (Auto) 31.1 % [place] % (Auto) 7.6 % Eos % (Auto) 0.6 % Baso % (Auto) 0.3 % Immature Gran # (Auto) 0.14 H (0.00-0.02) K/uL Neut # (Auto) 6.44 (1.4-6.5) K/uL Lymph # (Auto) 3.39 (1.2-3.4) K/uL [place] # (Auto) 0.83 H (0.11-0.59) K/uL Eos # (Auto) 0.07 (0-0.5) K/uL Baso # (Auto) 0.03 (0-0.2) K/uL PT 10.2 (9.0-12.0) Seconds INR 1.0 (0.9-1.1) APTT 21.3 (21.0-31.0) Seconds PTT Ratio 0.8 Activ Coag Time Kaolin (94-140) SECONDS D-Dimer 600 H* (0-500) ug/L FEU Sodium 139 (136-145) mmol/L Potassium 4.1 (3.5-5.1) mmol/L Chloride 107 (98-107) mmol/L Carbon Dioxide 23 (21-32) mmol/L Anion Gap 10.0 (3-11) BUN 22 H (7-18) mg/dl Creatinine 1.18 (0.6-1.4) mg/dl Est Cr Clr Drug Dosing 87.8 ml/min Est GFR ( Amer) 78.9 Est GFR (Non-Af Amer) 68.1 BUN/Creatinine Ratio 18.8 (10-20) Glucose 189 H (70-99) mg/dl POC Glucose (70-99) Estimat Average Glucose mg/dl Hemoglobin A1c (4.5-5.6) % Calcium 9.2 (8.5-10.1) mg/dl POC Troponin I (0-0.045) ng/ml Troponin I < 0.015 (0-0.045) ng/ml Triglycerides (0-150) mg/dl Cholesterol (0-200) mg/dl LDL Cholesterol, Calc mg/dl VLDL Cholesterol, Calc mg/dl HDL Cholesterol mg/dl Cholesterol/HDL Ratio Lipase 190 (73-393) U/L 02/03/19 02/03/19 02/03/19 Range/Units 12:13 12:13 12:14 WBC (4.8-10.8) K/uL RBC (4.7-6.1) M/uL Hgb (14.0-18.0) g/dL Hct (42-52) % MCV (80-100) fL MCH (25-34) pg MCHC (32-36) g/dL RDW Std Deviation (36.4-46.3) fL RDW Coeff of Serene (11.5-14.5) % Plt Count (130-400) K/uL MPV (7.4-10.4) fL Immature Gran % (Auto) % Neut % (Auto) % Lymph % (Auto) % [place] % (Auto) % Eos % (Auto) % Baso % (Auto) % Immature Gran # (Auto) (0.00-0.02) K/uL Neut # (Auto) (1.4-6.5) K/uL Lymph # (Auto) (1.2-3.4) K/uL [place] # (Auto) (0.11-0.59) K/uL Eos # (Auto) (0-0.5) K/uL Baso # (Auto) (0-0.2) K/uL PT (9.0-12.0) Seconds INR (0.9-1.1) APTT (21.0-31.0) Seconds PTT Ratio Activ Coag Time Kaolin (94-140) SECONDS D-Dimer (0-500) ug/L FEU Sodium (136-145) mmol/L Potassium (3.5-5.1) mmol/L Chloride (98-107) mmol/L Carbon Dioxide (21-32) mmol/L Anion Gap (3-11) BUN (7-18) mg/dl Creatinine (0.6-1.4) mg/dl Est Cr Clr Drug Dosing ml/min Est GFR ( Amer) Est GFR (Non-Af Amer) BUN/Creatinine Ratio (10-20) Glucose (70-99) mg/dl POC Glucose 181 H (70-99) Estimat Average Glucose 163 mg/dl Hemoglobin A1c 7.3 H (4.5-5.6) % Calcium (8.5-10.1) mg/dl POC Troponin I (0-0.045) ng/ml Troponin I (0-0.045) ng/ml Triglycerides 212 H (0-150) mg/dl Cholesterol 207 H (0-200) mg/dl LDL Cholesterol, Calc 121 mg/dl VLDL Cholesterol, Calc 42 mg/dl HDL Cholesterol 44 mg/dl Cholesterol/HDL Ratio 5 Lipase (73-393) U/L 02/03/19 02/03/19 Range/Units 12:35 13:17 WBC (4.8-10.8) K/uL RBC (4.7-6.1) M/uL Hgb (14.0-18.0) g/dL Hct (42-52) % MCV (80-100) fL MCH (25-34) pg MCHC (32-36) g/dL RDW Std Deviation (36.4-46.3) fL RDW Coeff of Serene (11.5-14.5) % Plt Count (130-400) K/uL MPV (7.4-10.4) fL Immature Gran % (Auto) % Neut % (Auto) % Lymph % (Auto) % [place] % (Auto) % Eos % (Auto) % Baso % (Auto) % Immature Gran # (Auto) (0.00-0.02) K/uL Neut # (Auto) (1.4-6.5) K/uL Lymph # (Auto) (1.2-3.4) K/uL [place] # (Auto) (0.11-0.59) K/uL Eos # (Auto) (0-0.5) K/uL Baso # (Auto) (0-0.2) K/uL PT (9.0-12.0) Seconds INR (0.9-1.1) APTT (21.0-31.0) Seconds PTT Ratio Activ Coag Time Kaolin 191 H (94-140) SECONDS D-Dimer (0-500) ug/L FEU Sodium (136-145) mmol/L Potassium (3.5-5.1) mmol/L Chloride (98-107) mmol/L Carbon Dioxide (21-32) mmol/L Anion Gap (3-11) BUN (7-18) mg/dl Creatinine (0.6-1.4) mg/dl Est Cr Clr Drug Dosing ml/min Est GFR ( Amer) Est GFR (Non-Af Amer) BUN/Creatinine Ratio (10-20) Glucose (70-99) mg/dl POC Glucose (70-99) Estimat Average Glucose mg/dl Hemoglobin A1c (4.5-5.6) % Calcium (8.5-10.1) mg/dl POC Troponin I < 0.03 (0-0.045) ng/ml Troponin I (0-0.045) ng/ml Triglycerides (0-150) mg/dl Cholesterol (0-200) mg/dl LDL Cholesterol, Calc mg/dl VLDL Cholesterol, Calc mg/dl HDL Cholesterol mg/dl Cholesterol/HDL Ratio Lipase (73-393) U/L Imaging Data Radiologist's Impression: Radiology results as stated below per my review and the radiologist's interpretation: XR chest 1V portable CLINICAL HISTORY: Chest Pain pain COMPARISON STUDY: No previous studies for comparison. FINDINGS: The bones soft tissues and hemidiaphragms are normal. The cardiomediastinal silhouette is normal. The lungs are clear. The pulmonary vasculature is normal. IMPRESSION: Negative chest. The above report was generated using voice recognition software. It may contain grammatical, syntax or spelling errors. Electronically signed by: Chicho Ochoa M.D. 02/03/2019 12:54 PM ECG Data Attestation: I personally reviewed and interpreted this ECG as follows: Indication: chest pain Rate (beats per minute): 64 Rhythm: sinus rhythm Findings: + other (MD, QRS, and QT-c intervals are within normal limits); no ST depression and no ST elevation Additional Comments: Repeat EKG 1: Sinus rhythm at a rate of 56. MD, QRS, and QT-c intervals are within normal limits. TWI in aVL and mild ST elevation in leads 2, 3, and aVF that were note present on initial EKG. Repeat EKG 2: Sinus rhythm at a rate of 56. MD, QRS, and QT-c intervals are within normal limits. ST elevation in leads 2, 3, aVF, 5, and 6. Mild ST depression in V1 and V2. Blood Pressure Blood Pressure Findings: Normal blood pressure Blood Pressure Disposition: did not require urgent referral MDM Narrative 1211: Past medical records reviewed. The patient was evaluated in room A9B. A complete history and physical exam was performed. His EKG at this time was sinus rhythm at a rate of 64. MD, QRS, and QT-c intervals are within normal limits. No ST elevation or depression. 1223: The patient is having increasing chest pain and he said that the Nitroglycerin did not help. We repeated an EKG at this time that showed sinus rhythm at a rate of 56. MD, QRS, and QT-c intervals are within normal limit. TWI in aVL and mild ST elevation in leads II, III, and aVF that were not present in the initial EKG. 1235: The patient has been having increasing chest pain and is now diaphoretic. He says that the Nitroglycerin and Morphine are not helping with his chest pain. We again repeated his EKG and it shows sinus rhythm at a rate of 56. MD, QRS, and QT-c intervals are within normal limits. ST elevation in leads II, III, aVF, [address] depression in V1 and V2. I called a heart alert at this time. 1252: Dr. Morel- Cardiology is at bedside given the patient's increasing disco mfort, chest pressure substernally with no radiation, and diaphoresis, he will be taken to the wood and wood products labourer. Impression & Plan ST elevation DC (STEMI) Critical Care Time Critical Care Time: Yes Total Critical Care Time: 41 I have personally spent 41 minutes of critical care time in the direct management of this patient. This includes bedside care, interpretation of diagnostic studies, and testing, discussion with consultants, patient, and fam rocael members, and other required patient management activities. This 41 minutes is in excess of all separately billable procedures. Discharge Plan Visit Data *Final* Discharge Date/Time: 02/03/19 13:06 Chief Complaint: Chest Pain Stated Complaint: chest pain - sweating - stomach pain - sob - shaky ED Provider: De Curry Discharge Problem: ST elevation DC (STEMI) Patient Disposition: Still a Patient Discharge Instructions Interventions: ED Discharge Assessment Last Done: 02/03/19 13:02 Discharge Problem: ST elevation DC (STEMI) Qualifiers: Involved coronary artery: unspecified coronary artery Qualified Code(s): I21.3 - ST elevation (STEMI) myocardial infarction of unspecified site The scribe's documentation has been prepared under my direction and personally reviewed by me in its entirety. I confirm that the note above accurately reflects all work, treatment, procedures, and medical decision making performed by me.
[2019-02-03] MEDS ORDERED: METOPROLOL TARTRATE 25 MG TAB PO SCH (21:00)
[2019-02-03] MEDS ORDERED: INSULIN ASPART 100 UNITS/ML 3 ML PEN SC SCH (21:00)
[2019-02-03] MEDS ORDERED: TICAGRELOR 90 MG TAB PO SCH (21:00)
[2019-02-04] MEDS: TICAGRELOR 90 MG TAB PO SCH ×3 (02:03→20:57)
[2019-02-04 02:06] LABS: Basophils # (auto) 0.01 K/uL (0-0.2); Basophils % (auto) 0.1 %; Eosinophils # (auto) 0.07 K/uL (0-0.5); Eosinophils % (auto) 0.7 %; Hematocrit (blood only) 38.2 % (42-52); Hemoglobin 13.5 g/dL (14.0-18.0); Immature Granulocytes # (auto) 0.06 K/uL (0.00-0.02); Immature Granulocytes % (auto) 0.6 %; Lymphocytes # (auto) 2.61 K/uL (1.2-3.4); Lymphocytes % (auto) 24.4 %; Mean Corpuscular Hgb Conc 35.3 g/dL (32-36); Mean Corpuscular Volume 86.6 fL (80-100); Mean Platelet Volume 9.1 fL (7.4-10.4); Monocytes # (auto) 0.93 K/uL (0.11-0.59); Monocytes % (auto) 8.7 %; Neutrophils # (auto) 7.02 K/uL (1.4-6.5); Neutrophils % (auto) 65.5 %; Platelet Count 188 K/uL (130-400); RDW Coefficient of Variation 12.8 % (11.5-14.5); RDW Standard Deviation 40.9 fL (36.4-46.3); Red Blood Count 4.41 M/uL (4.7-6.1)
[2019-02-04 02:14] LABS: Prothrombin Time 10.4 Seconds (9.0-12.0)
[2019-02-04 02:25] LABS: Albumin Level 3.1 gm/dl (3.4-5.0); BUN Creatinine Ratio 24.4 (10-20); Calcium 8.2 mg/dl (8.5-10.1); Creatinine Clr Calc Pharmacy 102.3 ml/min; Est GFR (African American) 97.6; Est GFR (Non-African American) 84.2; Magnesium 1.9 mg/dl (1.8-2.4)
[2019-02-04 02:26] LABS: Phosphorus 3.5 mg/dl (2.5-4.9)
[2019-02-04 02:35] LABS: Bilirubin,Total 0.4 mg/dl (0.2-1); Total Protein 6.1 gm/dl (6.4-8.2); Troponin I 30.4 ng/ml (0-0.045)
[2019-02-04] MEDS: ATORVASTATIN 40 MG TAB PO SCH (07:29)
[2019-02-04] MEDS: ASPIRIN 81 MG ECTAB PO SCH (07:30)
[2019-02-04] MEDS: INSULIN ASPART 100 UNITS/ML 3 ML PEN SC SCH ×4 (07:30→20:56)
[2019-02-04] MEDS: LISINOPRIL 5 MG TAB PO SCH (07:30)
[2019-02-04] MEDS ORDERED: PERFLUTREN LIPID MICROSPHERE (DEFINITY) IV ONE (07:37)
--- NOTE | 2019-02-04 07:54 | Critical Care Progress Note ---
Date of Service February 04, 2019 Assessment & Plan (1) ST elevation [place] (STEMI): (2) DM II (diabetes mellitus, type II), controlled: Reason Critically Ill: 58-year-old male without significant cardiac history presented with STEMI and underwent cath with PCI to circumflex. Neuro - [facility] ICU: Negative Cardiac - STEMIpatient had lateral ST changes on serial EKGs, now status post successful PCI to circumflex which was 100% occluded -Troponins now downtrending -Follow-up echo in a.m., pending -Continue ASA, Lipitor, lisinopril -Currently holding MTP for bradycardia, patient asymptomatic -Follow-up lipid panel HTNwe will hold Benicar as patient is to receive lisinopril, confirmed with patient that he did not have a drug allergy to lisinopril but had switched after there was a drug recall for preference Respiratory - Patient asymptomatic, comfortable on room air GI - Heart healthy carb consistent diet RENAL/LYTES - We will maximize electrolytes, routine BMPs - No issues at this time ENDO - Diabetic type IIwe will hold metformin for at least the next 48-hour, mathew sition to sliding scale -Hemoglobin A1c 7.3 HEME - H&H stable, monitor routine CBC in a.m. ID - No indication for infectious process at this time LINES/IV ACCESS - Peripheral IVs DVT PROPHYLAXIS - SCDs Thank you for allowing us to participate in the care of this patient. Please refer to my attending physician's documentation for any further recommendations. (3) HLD (hyperlipidemia): (4) HTN (hypertension): Supervising Physician Co-Signing Physician Notes I have personally evaluated and examined this patient. I agree with assessment and plan of Maynor CONTRERAS. Subjective Patient had a uneventful night and remains hemodynamically stable without need for vasopressors and maintain sats on room air. Troponins trending downward. His only complaints is of mild substernal chest pressure that he rates 1/10, unchanged from yesterday afternoon. He denies syncope, headache, shortness of breath, chest pain, palpitations, nausea or vomiting, diaphoresis. Patient can transfer from ICU status at this time. Review of Systems Review of Systems: All systems reviewed & are unremarkable except as noted in HPI & below Physical Exam Constitutional: WD/WN, vitals as above Eyes: PERRL, conjunctivae normal, anicteric sclerae ENMT: external ear and nose normal, oropharynx normal Neck: trachea midline, no thyromegaly Respiratory: normal respiratory effort, lungs clear to auscultation normal respiratory effort Cardiovascular: RRR, no murmur, no edema Rate/Rhythm: regular rate and regular rhythm Heart Sounds: normal S1 and normal S2 Vessels: no JVD Extremities: normal capillary refill; no edema Gastrointestinal (Abdomen): normal bowel sounds, soft, nontender, no hepatosplenomegaly Musculoskeletal: no cyanosis or clubbing, extremities motor strength 5/5 Skin: no rashes, warm and dry Neurologic: PERRL, EOMI, accommodation nl, no face palsy, no dysarthria Psychiatric: A+Ox3, euthymic affect Results & Data Vital Signs (Past 12 Hours) Vital Signs Temp Pulse Resp BP Pulse Ox 02/04/19 07:00 52 L 24 132/77 97 02/04/19 06:00 48 L 20 144/90 H 95 02/04/19 05:00 46 L 20 94 02/04/19 04:00 36.6 C 46 L 20 133/68 95 02/04/19 03:00 46 L 20 128/74 97 02/04/19 02:00 59 L 22 117/73 95 02/04/19 01:00 44 L 20 141/76 H 96 02/04/19 00:00 36.7 C 48 L 17 132/77 97 02/03/19 23:00 71 20 133/72 97 02/03/19 22:00 56 L 16 142/82 H 94 02/03/19 21:00 54 L 22 134/78 97 02/03/19 20:00 36.7 C 57 L 16 127/80 96 Laboratory Results Laboratory Results - last 24 hr 02/03/19 02/03/19 02/03/19 12:13 12:13 12:13 WBC 10.90 H RBC 4.94 Hgb 14.9 Hct 42.7 MCV 86.4 MCH 30.2 MCHC 34.9 RDW Std Deviation 40.9 RDW Coeff of Serene 12.9 Plt Count 228 MPV 9.7 Immature Gran % (Auto) 1.3 Neut % (Auto) 59.1 Lymph % (Auto) 31.1 [place] % (Auto) 7.6 Eos % (Auto) 0.6 Baso % (Auto) 0.3 Immature Gran # (Auto) 0.14 H Neut # (Auto) 6.44 Lymph # (Auto) 3.39 [place] # (Auto) 0.83 H Eos # (Auto) 0.07 Baso # (Auto) 0.03 PT 10.2 INR 1.0 APTT 21.3 PTT Ratio 0.8 Activ Coag Time Kaolin D-Dimer 600 H* Sodium 139 Potassium 4.1 Chloride 107 Carbon Dioxide 23 Anion Gap 10.0 BUN 22 H Creatinine 1.18 Est Cr Clr Drug Dosing 87.8 Est GFR ( Amer) 78.9 Est GFR (Non-Af Amer) 68.1 BUN/Creatinine Ratio 18.8 Glucose 189 H POC Glucose Estimat Average Glucose Hemoglobin A1c Calcium 9.2 Phosphorus Magnesium Total Bilirubin AST ALT Alkaline Phosphatase POC Troponin I Troponin I < 0.015 Total Protein Albumin Globulin Albumin/Globulin Ratio Triglycerides Cholesterol LDL Cholesterol, Calc VLDL Cholesterol, Calc HDL Cholesterol Cholesterol/HDL Ratio Lipase 190 Nasal Screen MRSA (PCR) 02/03/19 02/03/19 02/03/19 12:13 12:13 12:14 WBC RBC Hgb Hct MCV MCH MCHC RDW Std Deviation RDW Coeff of Serene Plt Count MPV Immature Gran % (Auto) Neut % (Auto) Lymph % (Auto) [place] % (Auto) Eos % (Auto) Baso % (Auto) Immature Gran # (Auto) Neut # (Auto) Lymph # (Auto) [place] # (Auto) Eos # (Auto) Baso # (Auto) PT INR APTT PTT Ratio Activ Coag Time Kaolin D-Dimer Sodium Potassium Chloride Carbon Dioxide Anion Gap BUN Creatinine Est Cr Clr Drug Dosing Est GFR ( Amer) Est GFR (Non-Af Amer) BUN/Creatinine Ratio Glucose POC Glucose 181 H Estimat Average Glucose 163 Hemoglobin A1c 7.3 H Calcium Phosphorus Magnesium Total Bilirubin AST ALT Alkaline Phosphatase POC Troponin I Troponin I Total Protein Albumin Globulin Albumin/Globulin Ratio Triglycerides 212 H Cholesterol 207 H LDL Cholesterol, Calc 121 VLDL Cholesterol, Calc 42 HDL Cholesterol 44 Cholesterol/HDL Ratio 5 Lipase Nasal Screen MRSA (PCR) 02/03/19 02/03/19 02/03/19 12:35 13:17 14:00 WBC RBC Hgb Hct MCV MCH MCHC RDW Std Deviation RDW Coeff of Serene Plt Count MPV Immature Gran % (Auto) Neut % (Auto) Lymph % (Auto) [place] % (Auto) Eos % (Auto) Baso % (Auto) Immature Gran # (Auto) Neut # (Auto) Lymph # (Auto) [place] # (Auto) Eos # (Auto) Baso # (Auto) PT INR APTT PTT Ratio Activ Coag Time Kaolin 191 H D-Dimer Sodium Potassium Chloride Carbon Dioxide Anion Gap BUN Creatinine Est Cr Clr Drug Dosing Est GFR ( Amer) Est GFR (Non-Af Amer) BUN/Creatinine Ratio Glucose POC Glucose Estimat Average Glucose Hemoglobin A1c Calcium Phosphorus Magnesium Total Bilirubin AST ALT Alkaline Phosphatase POC Troponin I < 0.03 Troponin I Total Protein Albumin Globulin Albumin/Globulin Ratio Triglycerides Cholesterol LDL Cholesterol, Calc VLDL Cholesterol, Calc HDL Cholesterol Cholesterol/HDL Ratio Lipase Nasal Screen MRSA (PCR) Negative 02/03/19 02/03/19 02/03/19 16:29 19:50 20:28 WBC RBC Hgb Hct MCV MCH MCHC RDW Std Deviation RDW Coeff of Serene Plt Count MPV Immature Gran % (Auto) Neut % (Auto) Lymph % (Auto) [place] % (Auto) Eos % (Auto) Baso % (Auto) Immature Gran # (Auto) Neut # (Auto) Lymph # (Auto) [place] # (Auto) Eos # (Auto) Baso # (Auto) PT INR APTT PTT Ratio Activ Coag Time Kaolin D-Dimer Sodium Potassium Chloride Carbon Dioxide Anion Gap BUN Creatinine Est Cr Clr Drug Dosing Est GFR ( Amer) Est GFR (Non-Af Amer) BUN/Creatinine Ratio Glucose POC Glucose 230 H 112 H Estimat Average Glucose Hemoglobin A1c Calcium Phosphorus Magnesium Total Bilirubin AST ALT Alkaline Phosphatase POC Troponin I Troponin I 21.400 H* Total Protein Albumin Globulin Albumin/Globulin Ratio Triglycerides Cholesterol LDL Cholesterol, Calc VLDL Cholesterol, Calc HDL Cholesterol Cholesterol/HDL Ratio Lipase Nasal Screen MRSA (PCR) 02/04/19 02/04/19 02/04/19 01:56 01:56 01:56 WBC 10.70 RBC 4.41 L Hgb 13.5 L Hct 38.2 L MCV 86.6 MCH 30.6 MCHC 35.3 RDW Std Deviation 40.9 RDW Coeff of Serene 12.8 Plt Count 188 MPV 9.1 Immature Gran % (Auto) 0.6 Neut % (Auto) 65.5 Lymph % (Auto) 24.4 [place] % (Auto) 8.7 Eos % (Auto) 0.7 Baso % (Auto) 0.1 Immature Gran # (Auto) 0.06 H Neut # (Auto) 7.02 H Lymph # (Auto) 2.61 [place] # (Auto) 0.93 H Eos # (Auto) 0.07 Baso # (Auto) 0.01 PT 10.4 INR 1.0 APTT PTT Ratio Activ Coag Time Kaolin D-Dimer Sodium 140 Potassium 4.0 Chloride 105 Carbon Dioxide 27 Anion Gap 8.0 BUN 24 H Creatinine 0.99 Est Cr Clr Drug Dosing 102.3 Est GFR ( Amer) 97.6 Est GFR (Non-Af Amer) 84.2 BUN/Creatinine Ratio 24.4 H Glucose 106 H POC Glucose Estimat Average Glucose Hemoglobin A1c Calcium 8.2 L Phosphorus 3.5 Magnesium 1.9 Total Bilirubin 0.4 AST 118 H ALT 67 Alkaline Phosphatase 65 POC Troponin I Troponin I 30.400 H* Total Protein 6.1 L Albumin 3.1 L Globulin 3.0 Albumin/Globulin Ratio 1.0 Triglycerides Cholesterol LDL Cholesterol, Calc VLDL Cholesterol, Calc HDL Cholesterol Cholesterol/HDL Ratio Lipase Nasal Screen MRSA (PCR) 02/04/19 02/04/19 07:24 08:35 WBC RBC Hgb Hct MCV MCH MCHC RDW Std Deviation RDW Coeff of Serene Plt Count MPV Immature Gran % (Auto) Neut % (Auto) Lymph % (Auto) [place] % (Auto) Eos % (Auto) Baso % (Auto) Immature Gran # (Auto) Neut # (Auto) Lymph # (Auto) [place] # (Auto) Eos # (Auto) Baso # (Auto) PT INR APTT PTT Ratio Activ Coag Time Kaolin D-Dimer Sodium Potassium Chloride Carbon Dioxide Anion Gap BUN Creatinine Est Cr Clr Drug Dosing Est GFR ( Amer) Est GFR (Non-Af Amer) BUN/Creatinine Ratio Glucose POC Glucose 107 H Estimat Average Glucose Hemoglobin A1c Calcium Phosphorus Magnesium Total Bilirubin AST ALT Alkaline Phosphatase POC Troponin I Troponin I 19.300 H* Total Protein Albumin Globulin Albumin/Globulin Ratio Triglycerides Cholesterol LDL Cholesterol, Calc VLDL Cholesterol, Calc HDL Cholesterol Cholesterol/HDL Ratio Lipase Nasal Screen MRSA (PCR) Medications Administered Home Medications Ezetimibe (Zetia) 10 mg PO DAILY #0 04/19/07 [History] CELECOXIB (CeleBREX) 200 mg PO DAILY #0 cap 12/11/16 [History] LOSARTAN POTASSIUM (COZAAR) 50 mg PO DAILY #0 tab 12/11/16 [History] METFORMIN HCL (GLUCOPHAGE) 850 mg PO BID #0 tab 12/11/16 [History] Active Medications Acetaminophen (Tylenol) 650 mg PO Q4H PRN PRN Reason: Mild Pain (scale 1-3) Stop: 03/05/19 13:47 Last Admin: 02/03/19 16:20 Dose: 650 mg Documented by: Aspirin (Ecotrin Ectab) 81 mg PO [facility] Stop: 03/06/19 08:59 Last Admin: 02/04/19 07:30 Dose: 81 mg Documented by: Atorvastatin Calcium (Lipitor) 80 mg PO [facility] Stop: 03/06/19 08:59 Last Admin: 02/04/19 07:29 Dose: 80 mg Documented by: Dextrose (Dextrose 50%) 25 - 50 ml IV UD PRN; Protocol PRN Reason: Hypoglycemia Protocol Stop: 03/05/19 16:44 Glucagon (Glucagen) 1 mg IM UD PRN; Protocol PRN Reason: Hypoglycemia Protocol Stop: 03/05/19 16:44 Glucose (Glucose 40%) 15 - 30 gm PO UD PRN; Protocol PRN Reason: Hypoglycemia Protocol Stop: 03/05/19 16:44 Glucose (Dex4 Glucose) 4 - 8 tabs PO UD PRN; Protocol PRN Reason: Hypoglycemia Protocol Stop: 03/05/19 16:44 Insulin Aspart (Novolog Flexpen) 0 units SC ACHS [facility]1983 Stop: 03/05/19 16:44 Last Admin: 02/04/19 07:30 Dose: 5 units Documented by: Lisinopril (Zestril) 5 mg PO [facility] Stop: 03/06/19 08:59 Last Admin: 02/04/19 07:30 Dose: 5 mg Documented by: Metoprolol Tartrate (Lopressor) 25 mg PO BID [facility] Stop: 03/05/19 20:59 Last Admin: 02/03/19 21:08 Dose: 25 mg Documented by: Miscellaneous (Carbohydrates For Hypoglycemia) 15 - 30 gm PO UD PRN PRN Reason: Hypoglycemia Treatment Stop: 03/05/19 16:44 Miscellaneous Information (Consult Glycemic Management Pharmacy) 1 ea N/A UD PRN PRN Reason: Consult Stop: 03/05/19 16:47 Nitroglycerin (Nitrostat) 0.4 mg SL UD PRN PRN Reason: Chest Pain Stop: 03/05/19 12:14 Last Admin: 02/03/19 12:40 Dose: 0.4 mg Documented by: Nitroglycerin (Nitro-Bid 2%) 1 inch EXT Q6H PRN PRN Reason: Chest Pain Stop: 03/05/19 15:59 Last Admin: 02/03/19 16:21 Dose: 1 inch Documented by: Ondansetron HCl (Zofran) 4 mg IV Q4H PRN PRN Reason: Nausea And Vomiting Stop: 03/05/19 14:10 Ticagrelor (Brilinta) 90 mg PO BID BRITTNY Stop: 03/06/19 01:59 Last Admin: 02/04/19 02:03 Dose: 90 mg Documented by: PG Care Time/CCT Total # of Minutes Spent Total Time Spent with Patient: Total time spent is greater than 50% in coordination of care (as documented) at patient's floor/unit and/or counseling patient: (1) ST elevation [place] (STEMI) Involved coronary artery: unspecified coronary artery Qualified Code(s): I21.3 - ST elevation (STEMI) myocardial infarction of unspecified site
--- NOTE | 2019-02-04 09:43 | Pharmacy Report ---
Pharmacy Glycemic Short Note 2 - Date of Service February 04, 2019 - Glycemic Short BSG Results (Last 24 hours): 02/03/19 02/03/19 02/03/19 12:13 12:14 16:29 Glucose 189 H POC Glucose 181 H 230 H 02/03/19 02/04/19 02/04/19 20:28 01:56 07:24 Glucose 106 H POC Glucose 112 H 107 H OUTPATIENT ANTIDIABETIC REGIMEN: * Metformin 850mg PO BID * A1c = 7.3% 02/03/19 ASSESSMENT: * Type 2 diabetic admitted for STEMI, now s/p PCI w/ stenting of LCX * Metformin currently on hold secondary to IV contrast administration * Fasting BSG 107 this AM w/ no basal insulin on board. Will not begin basal at this time given A1c results with one oral agent. * Novolog doses are based upon wt and moderate stress level - will continue at this time PLAN FOR INPATIENT GLYCEMIC CONTROL: * Hold outpatient oral diabetes medications (metformin) * Basal insulin * None at this time - continue to monitor fasting AM BSGs * Bolus insulin * NovoLog per scale ACHS or Q6hrs while NPO * Goal Range: Low 110 mg/dL - High 140 mg/dL * Correction Factor: 30 mg/dL/unit * Nutritional / Prandial insulin per carb ratio of 1 unit per 10 grams CHO consumed PLAN FOR DISCHARGE: * may resume home metformin regimen given near goal A1c. more dietary/lifestyle changes may be required to achieve goal A1c < 7, however the addition of a second agent may also be reasonable if these changes alone are not successful. Either a SGLT2 or GLP1-agonist with proven cardiovascular benefit would be reasonable choices.
--- NOTE | 2019-02-04 10:17 | Cardiology Progress Note ---
Date of Service February 04, 2019 Assessment & Plan (1) ST elevation [place] (STEMI): 2. Coronary artery disease-- acute 100% mid circumflex occlusion post PCI with single ISABEL (3.5 x 30 mm resolute); mild to moderate non-culprit disease (40% mid RCA, 20-30% proximal LAD) 3. Hypertension 4. Dyslipidemia 5. Type 2 diabetes Patient presented with STEMI due to occluded circumflex post successful PCI yesterday. Currently chest pain free. Hemodynamically and electrically stable. Troponin trending down (peak 30). Echo pending. On exam he appears well perfused without signs of heart. No access site complications. --Continue dual antiplatelet therapy for minimum one year --Continue beta graham, ASHLEIGH and high intensity statin --Consult cardiac rehab --OK to transfer to telemetry today Supervising Physician Co-Signing Physician Notes Patient seen and examined. Agree with assessment and plan as outlined by LUX Agudelo. Patient chest pain free and feeling well. Regular rate without murmurs on exam. Well perfused. No edema. No access site complications. Troponin peaked at 30. Echo reviewed, low normal LVEF with lateral, inferolateral hypokinesis. To telemetry today. Up walking halls this afternoon. Discussed secondary prevention targets. Likely home tomorrow. Subjective Patient is feeling well overall. Early this morning had some mild chest discomfort he describes as "indigestion." Currently chest pain free. No shortness of breath, orthopnea or PND. No abnormal bleeding. No issues at right radial artery access site. Tele reviewed-- no events Social history: and lives with near [place], [place]. 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 No tobacco, alcohol or drug use. Review of Systems Review of Systems: All systems reviewed & are unremarkable except as noted in HPI & below Physical Exam Physical Exam: General: No acute distress, comfortable. HEENT: Head is normal. Sclerae anicteric. Ears, nose and throat unremarkable. Mucous membranes moist. Neck: No appreciable JVD. Lungs: Clear to auscultation bilaterally without rales, rhonchi or wheezes. Cardiac: Regular rate and rhythm. S1-S2 normal. No appreciable murmur, gallop or rub. Abdomen: Soft and nontender. Bowel sounds normal. No mass or organomegaly. No abdominal bruit. Extremities/vascular: --Well perfused. No peripheral edema. --Right radial access site without ecchymosis or hematoma. Distal pulse and sensation intact. --DP and PT pulses 2+ bilaterally Skin: No rash or abnormal lesions. Normal turgor. Neurologic: Nonfocal Psychiatric: Affect appropriate. Alert and oriented. Results & Data Vital Signs (Past 12 Hours) Vital Signs Temp Pulse Resp BP Pulse Ox 02/04/19 08:33 55 L 18 136/82 99 02/04/19 08:00 36.8 C 51 L 21 95 02/04/19 07:00 52 L 24 132/77 97 02/04/19 06:00 48 L 20 144/90 H 95 02/04/19 05:00 46 L 20 94 02/04/19 04:00 36.6 C 46 L 20 133/68 95 02/04/19 03:00 46 L 20 128/74 97 02/04/19 02:00 59 L 22 117/73 95 02/04/19 01:00 44 L 20 141/76 H 96 02/04/19 00:00 36.7 C 48 L 17 132/77 97 02/03/19 23:00 71 20 133/72 97 Laboratory Results Laboratory Results - last 24 hr 02/03/19 02/03/19 02/03/19 12:13 12:13 12:13 WBC 10.90 H RBC 4.94 Hgb 14.9 Hct 42.7 MCV 86.4 MCH 30.2 MCHC 34.9 RDW Std Deviation 40.9 RDW Coeff of Serene 12.9 Plt Count 228 MPV 9.7 Immature Gran % (Auto) 1.3 Neut % (Auto) 59.1 Lymph % (Auto) 31.1 [place] % (Auto) 7.6 Eos % (Auto) 0.6 Baso % (Auto) 0.3 Immature Gran # (Auto) 0.14 H Neut # (Auto) 6.44 Lymph # (Auto) 3.39 [place] # (Auto) 0.83 H Eos # (Auto) 0.07 Baso # (Auto) 0.03 PT 10.2 INR 1.0 APTT 21.3 PTT Ratio 0.8 Activ Coag Time Kaolin D-Dimer 600 H* Sodium 139 Potassium 4.1 Chloride 107 Carbon Dioxide 23 Anion Gap 10.0 BUN 22 H Creatinine 1.18 Est Cr Clr Drug Dosing 87.8 Est GFR ( Amer) 78.9 Est GFR (Non-Af Amer) 68.1 BUN/Creatinine Ratio 18.8 Glucose 189 H POC Glucose Estimat Average Glucose Hemoglobin A1c Calcium 9.2 Phosphorus Magnesium Total Bilirubin AST ALT Alkaline Phosphatase POC Troponin I Troponin I < 0.015 Total Protein Albumin Globulin Albumin/Globulin Ratio Triglycerides Cholesterol LDL Cholesterol, Calc VLDL Cholesterol, Calc HDL Cholesterol Cholesterol/HDL Ratio Lipase 190 Nasal Screen MRSA (PCR) 02/03/19 02/03/19 02/03/19 12:13 12:13 12:14 WBC RBC Hgb Hct MCV MCH MCHC RDW Std Deviation RDW Coeff of Serene Plt Count MPV Immature Gran % (Auto) Neut % (Auto) Lymph % (Auto) [place] % (Auto) Eos % (Auto) Baso % (Auto) Immature Gran # (Auto) Neut # (Auto) Lymph # (Auto) [place] # (Auto) Eos # (Auto) Baso # (Auto) PT INR APTT PTT Ratio Activ Coag Time Kaolin D-Dimer Sodium Potassium Chloride Carbon Dioxide Anion Gap BUN Creatinine Est Cr Clr Drug Dosing Est GFR ( Amer) Est GFR (Non-Af Amer) BUN/Creatinine Ratio Glucose POC Glucose 181 H Estimat Average Glucose 163 Hemoglobin A1c 7.3 H Calcium Phosphorus Magnesium Total Bilirubin AST ALT Alkaline Phosphatase POC Troponin I Troponin I Total Protein Albumin Globulin Albumin/Globulin Ratio Triglycerides 212 H Cholesterol 207 H LDL Cholesterol, Calc 121 VLDL Cholesterol, Calc 42 HDL Cholesterol 44 Cholesterol/HDL Ratio 5 Lipase Nasal Screen MRSA (PCR) 02/03/19 02/03/19 02/03/19 12:35 13:17 14:00 WBC RBC Hgb Hct MCV MCH MCHC RDW Std Deviation RDW Coeff of Serene Plt Count MPV Immature Gran % (Auto) Neut % (Auto) Lymph % (Auto) [place] % (Auto) Eos % (Auto) Baso % (Auto) Immature Gran # (Auto) Neut # (Auto) Lymph # (Auto) [place] # (Auto) Eos # (Auto) Baso # (Auto) PT INR APTT PTT Ratio Activ Coag Time Kaolin 191 H D-Dimer Sodium Potassium Chloride Carbon Dioxide Anion Gap BUN Creatinine Est Cr Clr Drug Dosing Est GFR ( Amer) Est GFR (Non-Af Amer) BUN/Creatinine Ratio Glucose POC Glucose Estimat Average Glucose Hemoglobin A1c Calcium Phosphorus Magnesium Total Bilirubin AST ALT Alkaline Phosphatase POC Troponin I < 0.03 Troponin I Total Protein Albumin Globulin Albumin/Globulin Ratio Triglycerides Cholesterol LDL Cholesterol, Calc VLDL Cholesterol, Calc HDL Cholesterol Cholesterol/HDL Ratio Lipase Nasal Screen MRSA (PCR) Negative 02/03/19 02/03/19 02/03/19 16:29 19:50 20:28 WBC RBC Hgb Hct MCV MCH MCHC RDW Std Deviation RDW Coeff of Serene Plt Count MPV Immature Gran % (Auto) Neut % (Auto) Lymph % (Auto) [place] % (Auto) Eos % (Auto) Baso % (Auto) Immature Gran # (Auto) Neut # (Auto) Lymph # (Auto) [place] # (Auto) Eos # (Auto) Baso # (Auto) PT INR APTT PTT Ratio Activ Coag Time Kaolin D-Dimer Sodium Potassium Chloride Carbon Dioxide Anion Gap BUN Creatinine Est Cr Clr Drug Dosing Est GFR ( Amer) Est GFR (Non-Af Amer) BUN/Creatinine Ratio Glucose POC Glucose 230 H 112 H Estimat Average Glucose Hemoglobin A1c Calcium Phosphorus Magnesium Total Bilirubin AST ALT Alkaline Phosphatase POC Troponin I Troponin I 21.400 H* Total Protein Albumin Globulin Albumin/Globulin Ratio Triglycerides Cholesterol LDL Cholesterol, Calc VLDL Cholesterol, Calc HDL Cholesterol Cholesterol/HDL Ratio Lipase Nasal Screen MRSA (PCR) 02/04/19 02/04/19 02/04/19 01:56 01:56 01:56 WBC 10.70 RBC 4.41 L Hgb 13.5 L Hct 38.2 L MCV 86.6 MCH 30.6 MCHC 35.3 RDW Std Deviation 40.9 RDW Coeff of Serene 12.8 Plt Count 188 MPV 9.1 Immature Gran % (Auto) 0.6 Neut % (Auto) 65.5 Lymph % (Auto) 24.4 [place] % (Auto) 8.7 Eos % (Auto) 0.7 Baso % (Auto) 0.1 Immature Gran # (Auto) 0.06 H Neut # (Auto) 7.02 H Lymph # (Auto) 2.61 [place] # (Auto) 0.93 H Eos # (Auto) 0.07 Baso # (Auto) 0.01 PT 10.4 INR 1.0 APTT PTT Ratio Activ Coag Time Kaolin D-Dimer Sodium 140 Potassium 4.0 Chloride 105 Carbon Dioxide 27 Anion Gap 8.0 BUN 24 H Creatinine 0.99 Est Cr Clr Drug Dosing 102.3 Est GFR ( Amer) 97.6 Est GFR (Non-Af Amer) 84.2 BUN/Creatinine Ratio 24.4 H Glucose 106 H POC Glucose Estimat Average Glucose Hemoglobin A1c Calcium 8.2 L Phosphorus 3.5 Magnesium 1.9 Total Bilirubin 0.4 AST 118 H ALT 67 Alkaline Phosphatase 65 POC Troponin I Troponin I 30.400 H* Total Protein 6.1 L Albumin 3.1 L Globulin 3.0 Albumin/Globulin Ratio 1.0 Triglycerides Cholesterol LDL Cholesterol, Calc VLDL Cholesterol, Calc HDL Cholesterol Cholesterol/HDL Ratio Lipase Nasal Screen MRSA (PCR) 02/04/19 02/04/19 07:24 08:35 WBC RBC Hgb Hct MCV MCH MCHC RDW Std Deviation RDW Coeff of Serene Plt Count MPV Immature Gran % (Auto) Neut % (Auto) Lymph % (Auto) [place] % (Auto) Eos % (Auto) Baso % (Auto) Immature Gran # (Auto) Neut # (Auto) Lymph # (Auto) [place] # (Auto) Eos # (Auto) Baso # (Auto) PT INR APTT PTT Ratio Activ Coag Time Kaolin D-Dimer Sodium Potassium Chloride Carbon Dioxide Anion Gap BUN Creatinine Est Cr Clr Drug Dosing Est GFR ( Amer) Est GFR (Non-Af Amer) BUN/Creatinine Ratio Glucose POC Glucose 107 H Estimat Average Glucose Hemoglobin A1c Calcium Phosphorus Magnesium Total Bilirubin AST ALT Alkaline Phosphatase POC Troponin I Troponin I 19.300 H* Total Protein Albumin Globulin Albumin/Globulin Ratio Triglycerides Cholesterol LDL Cholesterol, Calc VLDL Cholesterol, Calc HDL Cholesterol Cholesterol/HDL Ratio Lipase Nasal Screen MRSA (PCR) PG Care Time/CCT Total # of Minutes Spent Total Time Spent with Patient: Total time spent is greater than 50% in coordination of care (as documented) at patient's floor/unit and/or counseling patient: (1) ST elevation [place] (STEMI) Involved coronary artery: unspecified coronary artery Qualified Code(s): I21.3 - ST elevation (STEMI) myocardial infarction of unspecified site
[2019-02-04] MEDS: ACETAMINOPHEN 325 MG TAB PO PRN (14:54)
--- NOTE | 2019-02-04 18:44 | Hospitalist Progress Note ---
Date of Service February 04, 2019 Assessment & Plan (1) ST elevation [place] (STEMI): This patient is a 58-year-old male with a history of DM 2, HTN, obesity, who presented with acute onset of chest pain was found to have a STEMI. He was taken urgently to the cardiac Matchbook Maker and was found to have 100% acute occlusion of the circumflex which was stented. Doing well overnight in the ICU, no arrhythmias on telemetry No chest pain or evidence of heart failure Echocardiogram shows low normal EF with mild hypokinesis of the lateral and inferolateral stover Troponin peaked at 30 and is now trending downward Lipid panel with total cholesterol elevated at 207, LDL 121. Appreciate cardiology management Had bradycardia into the 40s overnight after dose of metoprolol 25 mg. Metoprolol was held this morning Currently, heart rate in the 50s to low 60s in sinus rhythm. -Continue aspirin and Brilinta 90 mg p.o. twice daily-we will need to check cost of Brilinta prior to discharge -Started atorvastatin 80 mg once daily- will need LFTs and lipid panel in 4 to 6 weeks -Reduce metoprolol to 12.5 mg p.o. twice daily and make hold parameters down to 55 bpm - cont lisinopril 5 mg daily-new medication for him -He will likely transition to seeing a boiler operator helper in [place] as he does not reside in this town -We will need cardiac rehabilitation as an outpatient -If doing well tomorrow, can be discharged most likely as per cardiology (2) CAD (coronary artery disease), [place] coronary artery: As above (3) HTN (hypertension): Blood pressures controlled -Started metoprolol, lisinopril -He can discontinue his home losartan (4) HLD (hyperlipidemia): - Initiate high dose statin as above. Total cholesterol elevated at 207, LDL 121 -will need repeat lipid panel and LFTs in 4 to 6 weeks -Discontinue home Zetia (5) DM II (diabetes mellitus, type II), controlled: Blood sugars controlled here - Continue ISS with accuchecks for now. Pt maintains on metformin as an outpatient, continue to hold this for now and can be restarted as an outpatient -Consider adding on - A1C here is 7.3% and goal would be less than 7% -Counseled on dietary changes and lifestyle changes to reduce glucose If cannot reach goal hemoglobin A1c, pharmacist here suggests either a SGLT2 or GLP1-agonist with proven cardiovascular benefit as a second agent (6) Obesity (BMI 30.0-34.9): - BMI of 35, pt will need dietary changes and cardiac rehab to encourage weight loss (7) DVT prophylaxis: EVELYNE stevane, aspirin, Brilinta Dispo: Can transfer out of the ICU to the PCU, will likely discharge home tomorrow Subjective Patient doing well. Denies any chest pain or shortness of breath. He had a headache earlier which went away with Tylenol. Denies nausea or abdominal pain. Telemetry with normal sinus rhythm, no arrhythmias Review of Systems Review of Systems: All systems reviewed & are unremarkable except as noted in HPI & below Physical Exam Constitutional: WD/WN, vitals as above + obese Eyes: + anicteric sclerae ENMT: external ear and nose normal, oropharynx normal Neck: trachea midline, no thyromegaly Respiratory: normal respiratory effort, lungs clear to auscultation Cardiovascular: RRR, no murmur, no edema Gastrointestinal (Abdomen): normal bowel sounds, soft, nontender, no hepatosplenomegaly Musculoskeletal: Extremities: extremities normal to inspection; no cyanosis and no clubbing Skin: no rashes, warm and dry Neurologic: moves all extremities and awake; no focal motor deficits Psychiatric: A+Ox3, euthymic affect Results & Data Vital Signs (Past 12 Hours) Vital Signs Temp Pulse Resp BP Pulse Ox 02/04/19 16:00 49 L 16 126/72 93 02/04/19 15:00 36.7 C 55 L 22 122/86 97 02/04/19 14:02 58 L 13 142/89 H 96 02/04/19 14:00 57 L 19 95 02/04/19 12:57 56 L 21 128/71 97 02/04/19 12:00 36.9 C 56 L 13 02/04/19 11:00 58 L 22 141/83 H 95 02/04/19 10:35 56 L 18 97 02/04/19 10:34 54 L 18 127/90 97 02/04/19 10:00 64 24 100 02/04/19 09:00 66 22 92 02/04/19 08:34 56 L 21 97 02/04/19 08:33 55 L 18 136/82 99 02/04/19 08:00 36.8 C 51 L 21 95 02/04/19 07:00 52 L 24 132/77 97 Laboratory Results 02/04/19 02/04/19 02/04/19 Range/Units 16:36 13:52 11:33 WBC (4.8-10.8) K/uL RBC (4.7-6.1) M/uL Hgb (14.0-18.0) g/dL Hct (42-52) % MCV (80-100) fL MCH (25-34) pg MCHC (32-36) g/dL RDW Std Deviation (36.4-46.3) fL RDW Coeff of Serene (11.5-14.5) % Plt Count (130-400) K/uL MPV (7.4-10.4) fL Immature Gran % (Auto) % Neut % (Auto) % Lymph % (Auto) % Alfalfa % (Auto) % Eos % (Auto) % Baso % (Auto) % Immature Gran # (Auto) (0.00-0.02) K/uL Neut # (Auto) (1.4-6.5) K/uL Lymph # (Auto) (1.2-3.4) K/uL Alfalfa # (Auto) (0.11-0.59) K/uL Eos # (Auto) (0-0.5) K/uL Baso # (Auto) (0-0.2) K/uL PT (9.0-12.0) Seconds INR (0.9-1.1) Sodium (136-145) mmol/L Potassium (3.5-5.1) mmol/L Chloride (98-107) mmol/L Carbon Dioxide (21-32) mmol/L Anion Gap (3-11) BUN (7-18) mg/dl Creatinine (0.6-1.4) mg/dl Est Cr Clr Drug Dosing ml/min Est GFR ( Amer) Est GFR (Non-Af Amer) BUN/Creatinine Ratio (10-20) Glucose (70-99) mg/dl POC Glucose 100 H 135 H (70-99) Calcium (8.5-10.1) mg/dl Phosphorus (2.5-4.9) mg/dl Magnesium (1.8-2.4) mg/dl Total Bilirubin (0.2-1) mg/dl AST (15-37) U/L ALT (12-78) U/L Alkaline Phosphatase (45-117) U/L Troponin I 13.000 H* (0-0.045) ng/ml Total Protein (6.4-8.2) gm/dl Albumin (3.4-5.0) gm/dl Globulin (2.5-4.0) gm/dl Albumin/Globulin Ratio (0.9-2) 02/04/19 02/04/19 02/04/19 Range/Units 08:35 07:24 01:56 WBC (4.8-10.8) K/uL RBC (4.7-6.1) M/uL Hgb (14.0-18.0) g/dL Hct (42-52) % MCV (80-100) fL MCH (25-34) pg MCHC (32-36) g/dL RDW Std Deviation (36.4-46.3) fL RDW Coeff of Serene (11.5-14.5) % Plt Count (130-400) K/uL MPV (7.4-10.4) fL Immature Gran % (Auto) % Neut % (Auto) % Lymph % (Auto) % Alfalfa % (Auto) % Eos % (Auto) % Baso % (Auto) % Immature Gran # (Auto) (0.00-0.02) K/uL Neut # (Auto) (1.4-6.5) K/uL Lymph # (Auto) (1.2-3.4) K/uL Alfalfa # (Auto) (0.11-0.59) K/uL Eos # (Auto) (0-0.5) K/uL Baso # (Auto) (0-0.2) K/uL PT (9.0-12.0) Seconds INR (0.9-1.1) Sodium 140 (136-145) mmol/L Potassium 4.0 (3.5-5.1) mmol/L Chloride 105 (98-107) mmol/L Carbon Dioxide 27 (21-32) mmol/L Anion Gap 8.0 (3-11) BUN 24 H (7-18) mg/dl Creatinine 0.99 (0.6-1.4) mg/dl Est Cr Clr Drug Dosing 102.3 ml/min Est GFR ( Amer) 97.6 Est GFR (Non-Af Amer) 84.2 BUN/Creatinine Ratio 24.4 H (10-20) Glucose 106 H (70-99) mg/dl POC Glucose 107 H (70-99) Calcium 8.2 L (8.5-10.1) mg/dl Phosphorus 3.5 (2.5-4.9) mg/dl Magnesium 1.9 (1.8-2.4) mg/dl Total Bilirubin 0.4 (0.2-1) mg/dl AST 118 H (15-37) U/L ALT 67 (12-78) U/L Alkaline Phosphatase 65 (45-117) U/L Troponin I 19.300 H* 30.400 H* (0-0.045) ng/ml Total Protein 6.1 L (6.4-8.2) gm/dl Albumin 3.1 L (3.4-5.0) gm/dl Globulin 3.0 (2.5-4.0) gm/dl Albumin/Globulin Ratio 1.0 (0.9-2) 02/04/19 02/04/19 02/03/19 Range/Units 01:56 01:56 20:28 WBC 10.70 (4.8-10.8) K/uL RBC 4.41 L (4.7-6.1) M/uL Hgb 13.5 L (14.0-18.0) g/dL Hct 38.2 L (42-52) % MCV 86.6 (80-100) fL MCH 30.6 (25-34) pg MCHC 35.3 (32-36) g/dL RDW Std Deviation 40.9 (36.4-46.3) fL RDW Coeff of Serene 12.8 (11.5-14.5) % Plt Count 188 (130-400) K/uL MPV 9.1 (7.4-10.4) fL Immature Gran % (Auto) 0.6 % Neut % (Auto) 65.5 % Lymph % (Auto) 24.4 % Alfalfa % (Auto) 8.7 % Eos % (Auto) 0.7 % Baso % (Auto) 0.1 % Immature Gran # (Auto) 0.06 H (0.00-0.02) K/uL Neut # (Auto) 7.02 H (1.4-6.5) K/uL Lymph # (Auto) 2.61 (1.2-3.4) K/uL Alfalfa # (Auto) 0.93 H (0.11-0.59) K/uL Eos # (Auto) 0.07 (0-0.5) K/uL Baso # (Auto) 0.01 (0-0.2) K/uL PT 10.4 (9.0-12.0) Seconds INR 1.0 (0.9-1.1) Sodium (136-145) mmol/L Potassium (3.5-5.1) mmol/L Chloride (98-107) mmol/L Carbon Dioxide (21-32) mmol/L Anion Gap (3-11) BUN (7-18) mg/dl Creatinine (0.6-1.4) mg/dl Est Cr Clr Drug Dosing ml/min Est GFR ( Amer) Est GFR (Non-Af Amer) BUN/Creatinine Ratio (10-20) Glucose (70-99) mg/dl POC Glucose 112 H (70-99) Calcium (8.5-10.1) mg/dl Phosphorus (2.5-4.9) mg/dl Magnesium (1.8-2.4) mg/dl Total Bilirubin (0.2-1) mg/dl AST (15-37) U/L ALT (12-78) U/L Alkaline Phosphatase (45-117) U/L Troponin I (0-0.045) ng/ml Total Protein (6.4-8.2) gm/dl Albumin (3.4-5.0) gm/dl Globulin (2.5-4.0) gm/dl Albumin/Globulin Ratio (0.9-2) 02/03/19 Range/Units 19:50 WBC (4.8-10.8) K/uL RBC (4.7-6.1) M/uL Hgb (14.0-18.0) g/dL Hct (42-52) % MCV (80-100) fL MCH (25-34) pg MCHC (32-36) g/dL RDW Std Deviation (36.4-46.3) fL RDW Coeff of Serene (11.5-14.5) % Plt Count (130-400) K/uL MPV (7.4-10.4) fL Immature Gran % (Auto) % Neut % (Auto) % Lymph % (Auto) % Alfalfa % (Auto) % Eos % (Auto) % Baso % (Auto) % Immature Gran # (Auto) (0.00-0.02) K/uL Neut # (Auto) (1.4-6.5) K/uL Lymph # (Auto) (1.2-3.4) K/uL Alfalfa # (Auto) (0.11-0.59) K/uL Eos # (Auto) (0-0.5) K/uL Baso # (Auto) (0-0.2) K/uL PT (9.0-12.0) Seconds INR (0.9-1.1) Sodium (136-145) mmol/L Potassium (3.5-5.1) mmol/L Chloride (98-107) mmol/L Carbon Dioxide (21-32) mmol/L Anion Gap (3-11) BUN (7-18) mg/dl Creatinine (0.6-1.4) mg/dl Est Cr Clr Drug Dosing ml/min Est GFR ( Amer) Est GFR (Non-Af Amer) BUN/Creatinine Ratio (10-20) Glucose (70-99) mg/dl POC Glucose (70-99) Calcium (8.5-10.1) mg/dl Phosphorus (2.5-4.9) mg/dl Magnesium (1.8-2.4) mg/dl Total Bilirubin (0.2-1) mg/dl AST (15-37) U/L ALT (12-78) U/L Alkaline Phosphatase (45-117) U/L Troponin I 21.400 H* (0-0.045) ng/ml Total Protein (6.4-8.2) gm/dl Albumin (3.4-5.0) gm/dl Globulin (2.5-4.0) gm/dl Albumin/Globulin Ratio (0.9-2) PG Care Time/CCT Total # of Minutes Spent Total Time Spent with Patient: Total time spent is greater than 50% in coordination of care (as documented) at patient's floor/unit and/or counseling patient: (1) ST elevation [place] (STEMI) Involved coronary artery: unspecified coronary artery Qualified Code(s): I21.3 - ST elevation (STEMI) myocardial infarction of unspecified site
[2019-02-04] MEDS: METOPROLOL TARTRATE 25 MG TAB PO SCH (20:57)
[2019-02-05] MEDS: ACETAMINOPHEN 325 MG TAB PO PRN (05:27)
[2019-02-05 06:59] LABS: Hematocrit (blood only) 41.6 % (42-52); Hemoglobin 14.6 g/dL (14.0-18.0); Mean Corpuscular Hgb Conc 35.1 g/dL (32-36); Mean Corpuscular Volume 86.5 fL (80-100); Mean Platelet Volume 9.5 fL (7.4-10.4); Platelet Count 208 K/uL (130-400); RDW Standard Deviation 41.5 fL (36.4-46.3); Red Blood Count 4.81 M/uL (4.7-6.1); White Blood Count 10.56 K/uL (4.8-10.8)
[2019-02-05 07:36] LABS: Albumin Level 3.3 gm/dl (3.4-5.0); BUN Creatinine Ratio 19.9 (10-20); Calcium 8.6 mg/dl (8.5-10.1); Creatinine Clr Calc Pharmacy 102.7 ml/min; Est GFR (Non-African American) 86.3; Potassium 4.1 mmol/L (3.5-5.1)
[2019-02-05 07:38] LABS: Bilirubin,Total 0.8 mg/dl (0.2-1); Globulin 3.4 gm/dl (2.5-4.0); Total Protein 6.7 gm/dl (6.4-8.2)
[2019-02-05] MEDS: INSULIN ASPART 100 UNITS/ML 3 ML PEN SC SCH (08:20)
[2019-02-05] MEDS: METOPROLOL TARTRATE 25 MG TAB PO SCH (08:21)
[2019-02-05] MEDS: ASPIRIN 81 MG ECTAB PO SCH (08:21)
[2019-02-05] MEDS: LISINOPRIL 5 MG TAB PO SCH (08:22)
[2019-02-05] MEDS: TICAGRELOR 90 MG TAB PO SCH (08:22)
[2019-02-05] MEDS: ATORVASTATIN 40 MG TAB PO SCH (08:22)
--- NOTE | 2019-02-05 11:49 | Discharge Summary ---
Date of Service February 05, 2019 Admission HPI Per Admitting Provider This is a 58 yo M with PMHx of HTN, DM II, and HLD who presents with acute onset of chest pain. EKG was completed in the ER showing new lateral ST wave changes concerning for PA. He has no history of cardiac events. The patient reports that his chest pain started abruptly this morning. 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 He vomited after consuming this and become extremely diaphoretic. Patient called a friend who is a nurse, who then came to the long-term where he was sitting in his vehicle and picked him up and brought him to the ER. Patient notes his chest pain was substernal, did not radiate, and was rated 10/10. Patient reports not routinely exercising, but he does walk a lot at work. Patient denies history of smoking and does not drink alcohol routinely. Family history of father with heart disease. Paternal grandmother with hx of HTN and stroke. Pt was taken to the cardiac catheterization lab for STEMI. Circumflex art with 100% occlusion and 1 ISABEL was placed. Principal Diagnosis STEMI, acute coronary syndrome Discharge Exam Constitutional WD/WN, vitals as above + obese Eyes + anicteric sclerae Neck trachea midline, no thyromegaly Respiratory normal respiratory effort, lungs clear to auscultation Cardiovascular RRR, no murmur, no edema Gastrointestinal (Abdomen) normal bowel sounds, soft, nontender, no hepatosplenomegaly Musculoskeletal Extremities: extremities normal to inspection; no cyanosis and no clubbing Skin no rashes, warm and dry Neurologic moves all extremities and awake; no focal motor deficits Psychiatric A+Ox3, euthymic affect Discharge Data Allergies Allergy/AdvReac Type Severity Reaction Status Date / Time morphine Allergy Mild Verified 06/30/18 15:30 latex Allergy Unknown UNKNOWN Unverified 06/30/18 15:30 Consultations 02/03/19 13:54 Consult Cardiac Rehabilitation Routine 02/03/19 13:55 Consult Case Management - Discharge Planning Routine Consult Ring Stamper Routine 02/03/19 14:11 Consult Cardiology Routine Consult Case Management - Discharge Planning Routine 02/03/19 14:38 Consult Case Management - Discharge Planning Routine Procedures Performed Operation Date: 02/03/19 12:45 Actual Procedures s Cath, Left with Cors and Vent - Luis R. Morel, MD s Cineradiography w/Routine Exam - Luis Morel MD p Aspiration/PCI w/ISABEL for Stemi - Luis Morel MD s POBA SGL Vessel - Luis Morel MD Ordered Studies 02/03/19 12:49 CL Cath Imgs for PACS use only Stat Chest x-ray Echocardiogram Hospital Course (1) ST elevation [place] (STEMI): This patient is a 58-year-old male with a history of DM 2, HTN, obesity, who presented with acute onset of chest pain was found to have a STEMI. He was taken urgently to the cardiac Screen Making Supervisor and was found to have 100% acute occlusion of the circumflex which was stented. Doing well since admission, no arrhythmias on telemetry No chest pain or evidence of heart failure Echocardiogram shows low normal EF with mild hypokinesis of the lateral and inferolateral stover Troponin peaked at 30 and is now trending downward Lipid panel with total cholesterol elevated at 207, LDL 121. Appreciate cardiology management Continues with asymptomatic bradycardia into the 40s overnight with metoprolol, but overall typically in the 50s to low 60s at rest while awake -Continue aspirin and Brilinta 90 mg p.o. twice daily-cost savings card provided for Brilinta -Started atorvastatin 80 mg once daily- will need LFTs and lipid panel in 4 to 6 weeks -Continue metoprolol 12.5 mg p.o. twice daily - cont lisinopril 5 mg daily-new medication for him -Follow-up with Dr. Morel of [facility] cardiology within 2 weeks -He will need cardiac rehabilitation as an outpatient -Discussed with cardiology-stable for discharge to home -Cardiac catheterization precautions/activity instructions given -Needs to remain out of work for at least 2 weeks (2) CAD (coronary artery disease), [place] coronary artery: As above (3) HTN (hypertension): Blood pressures controlled -Started metoprolol, lisinopril -He can discontinue his home ASHLEIGH/arm-he is unsure which medication he is on at this time at home (4) HLD (hyperlipidemia): - Initiated high dose statin as above. Total cholesterol elevated at 207, LDL 121 -will need repeat lipid panel and LFTs in 4 to 6 weeks -Discontinue home Zetia (5) DM II (diabetes mellitus, type II), controlled: Blood sugars controlled here -Received insulin while admitted Pt maintains on metformin as an outpatient, can restart metformin upon discharge - A1C here is 7.3% and goal would be less than 7% -Counseled on dietary changes and lifestyle changes to reduce glucose If cannot reach goal hemoglobin A1c, pharmacist here suggests either a SGLT2 or GLP1-agonist with proven cardiovascular benefit as a second agent-we will defer to PCP in the future (6) Obesity (BMI 30.0-34.9): - BMI of 35, pt will need dietary changes and cardiac rehab to encourage weight loss (7) Arthritis: Has mild to moderate joint pains and arthritis for which she takes Celebrex -Advised him to discontinue Celebrex and all other NSAIDs given there warning of increased stroke and heart attack risk, as well as blood thinning properties line-he can take acetaminophen as needed for pain (8) DVT prophylaxis: EVELYNE hose, aspirin, Brilinta Dispo: Stable for discharge to home Total Time Total Time Spent Total Time Spent (In Minutes): Greater than 30 minutes Total Time Includes: Examination of the Patient, Discharge Planning, Medication Reconciliation and Communication With Other Providers (Cardiology) Discharge Plan Discharge Items Patient Disposition: Home - Self-Care Reason For Visit: ACS Discharge Diagnosis: ST elevation myocardial infarction, acute coronary syndrome Condition: Good Discharge Goals: Decrease discomfort, Diagnostic testing, Improve disease control, Learn about illness and Therapeutic intervention Activity: As commented below Activity Comment: Remain out of work for 2 weeks Lifting: None Lifting Comment: No lifting x3 days Bathing: No limitations Exercise/Sports: Wait until after follow-up appointment Driving/Machine Use: Resume 3 days after discharge Non-emergency contact: Primary Care Provider and Yardage Estimator Call non-emergency contact if: you have any medication questions, your symptoms worsen, your pain is not controlled, your pain is worsening, your pain is unusual for you and your pain is concerning for you Follow-up/Referrals: Moisés Morin [Other] Diet: Carb Consistent or DM2 and Heart Healthy Addtl Provider Instructions: You were admitted to the hospital after suffering a heart attack. You had a stent placed in 1 of the arteries of your heart to open up the blockage. It is very important that you take all the medications as prescribed to you. You should not take Celebrex or any other nonsteroidal anti-inflammatory drugs (NSAIDs) as these can increase your risk for heart attack or stroke, as well as the fact that they are also blood thinners. You will be on 2 different blood thinners-aspirin and Brilinta. You are also started on a cholesterol pill called atorvastatin and you can discontinue your home Zetia. Please take lisinopril (and discontinue the new medication you received recently at home to replace your Benicar). If you have any chest pain or feel short of breath, develop leg swelling, please go immediately to the hospital. Please follow-up with your primary care physician within 1 to 2 weeks. Please follow-up with Dr. Morel of cardiology within 1 to 2 weeks as will be scheduled for you. ACTIVITY RECOMMENDATIONS: Excess manipulation of the wrist should be avoided for the next 24-48 hours. * No lifting over 2 pounds (approximately a 1/2 gallon of milk) with the utilized arm for 24 hours. * No strenuous activity such as bowling or tennis for 3 days. * Keep the site of the procedure covered with a bandage for 24 hours. *You may shower the day after the procedure. Do not take a tub bath or submerge the puncture site in water for the next 3 days. *Do not operate any motorized equipment for 3 days. SPECIAL CARE INSTRUCTIONS: The site may be slightly bruised and sore following your procedure. Should any of the following occur, contact the Dr. who performed your procedure. 1. Redness/inflammation, swelling, chills, or fever, or colored drainage at procedure site within 3-7 days after your procedure. 2. Coldness, discoloration, ongoing numbness, severe pain, or swelling. Expect mild tingling of hand and tenderness at the puncture site for up to three days. If this persists beyond three days, or other symptoms develop, notify the Dr. who performed your procedure. BLEEDING: If the procedure site on your wrist begins to bleed, do not panic 1. Place 1 or 2 fingers firmly just slightly above the insertion site to stop the bleeding. You may be able to feel your pulse as you hold pressure. 2. Lift your finger after 5 minutes to see if the bleeding has stopped. 3. Once the bleeding has stopped, gently wipe the wrist area clean with a bandage. * If the bleeding from your wrist does not stop after 10 minutes, or if there is a large amount of bleeding or spurting, call 911 (do not drive yourself to the hospital). SKIN IRRITATION: * You may experience some redness and/or swelling in the area where radiation was administered. If any skin irritation occurs, please contact your family physician. FOLLOW UP VISIT: Keep any scheduled doctor appointments. Prescriptions: New Brilinta 90 mg Tablet 90 mg PO BID Qty: 60 RF: 0 atorvastatin 80 mg tablet 80 mg PO DAILY Qty: 30 RF: 0 lisinopril [Zestril] 5 mg Tablet 5 mg PO QAM Qty: 30 RF: 0 metoprolol tartrate 25 mg Tablet 12.5 mg PO BID Qty: 30 RF: 0 nitroglycerin [Nitrostat] 0.4 mg Tablet, Sublingual 0.4 mg sublingual UD PRN (Reason: chest pain) Qty: 20 RF: 0 acetaminophen [Mapap (acetaminophen)] 325 mg Tablet 650 mg PO Q4H PRN (Reason: pain) Qty: 30 RF: 0 aspirin [Ecotrin Low Strength] 81 mg Tablet,Delayed Release (Dr/Ec) 81 mg PO QAM Qty: 30 RF: 0 Continued METFORMIN HCL (GLUCOPHAGE) 850 MG tablet 850 mg PO BID Qty: 0 RF: 0 Discontinued Ezetimibe (Zetia) 10 MG tablet 10 mg PO DAILY Qty: 0 RF: 0 CELECOXIB (CeleBREX) 200 MG capsule 200 mg PO DAILY Qty: 0 RF: 0 LOSARTAN POTASSIUM (COZAAR) 50 MG tablet 50 mg PO DAILY Qty: 0 RF: 0 Stand-Alone Forms: Call Back Authorization, [facility], Work/School Release (Inpt) Charo/Other Patient Handouts: Diabetes Type 2 Coping, Diabetes Meal Planning Discharge Orders: Discharge Order (Routine); Ordered 02/05/19 Ordered By: Carlotta Frost Admission Data Admit Date/Time: 02/03/19 13:55 Attending Provider: Carlotta Frost Admit Provider: Luis Morel Primary Care Provider: Moisés Morin Other Providers: Florentin Chua ; Luis Morel Service: Telemetry Other Pending Studies at Discharge: No
--- NOTE | 2019-02-05 12:35 | Cardiology Progress Note ---
Date of Service February 05, 2019 Assessment & Plan (1) ST elevation [place] (STEMI): 2. Coronary artery disease-- acute 100% mid circumflex occlusion post PCI with single ISABEL (3.5 x 30 mm resolute); mild to moderate non-culprit disease (40% mid RCA, 20-30% proximal LAD) 3. Hypertension 4. Dyslipidemia 5. Type 2 diabetes Patient still from a cardiac standpoint. Okay for discharge today. Home on DAPT with aspirin, ticagrelor. Continue current beta-graham, ASHLEIGH, statin. Follow-up with me in 2 to 3 weeks with referral to cardiac rehab at that time. Subjective Feeling well today. No recurrent chest pain. No events overnight. Telemetry reviewed. Sinus bradycardia to the high 40s. No ventricular ectopy. Review of Systems Review of Systems: All systems reviewed & are unremarkable except as noted in HPI & below Physical Exam Physical Exam: General: Comfortable, no acute distress HEENT: Sclerae anicteric, mucous membranes moist Lungs: Clear to auscultation bilaterally, no rhonchi or wheezes Cardiac: Regular rate and rhythm, no murmurs. No JVD. Abdomen: Soft, nontender, nondistended, positive bowel sounds. Extremities: Warm, well perfused, no edema. Right radial artery access site with no ecchymosis, hematoma. Distal pulse and sensation intact. Skin: No rashes or lesions. Neuro: Nonfocal Psych: Alert orient x3, normal affect and mood Results & Data Vital Signs (Past 12 Hours) Vital Signs Temp Pulse Pulse Resp BP BP Pulse Ox 02/05/19 11:02 36.8 C 58 L 18 144/85 H 97 02/05/19 08:00 49 L 02/05/19 07:45 36.7 C 53 L 18 138/82 98 02/05/19 04:19 36.7 C 51 L 20 145/87 H 97 PG Care Time/CCT Total # of Minutes Spent Total Time Spent with Patient: Total time spent is greater than 50% in coordination of care (as documented) at patient's floor/unit and/or counseling patient: (1) ST elevation [place] (STEMI) Involved coronary artery: unspecified coronary artery Qualified Code(s): I21.3 - ST elevation (STEMI) myocardial infarction of unspecified site
[2019-02-05] MEDS ORDERED: INSULIN ASPART 100 UNITS/ML 3 ML PEN SC SCH (16:30)
[2019-02-05] MEDS ORDERED: METFORMIN HCL 850 MG TAB PO SCH (17:00)
== END 2019-02-05 14:00 | disposition home or self-care (01) | DRG 247 ==
LOC: ED 12:01 → CC 13:06 → 1E 13:55 → SUATTDRO 13:55 → 2S 02-04 18:35

== ENCOUNTER 2020-03-30 21:03 | Observation (INO) ==
[2020-03-30] MEDS ORDERED: SODIUM CHLORIDE 0.9% 500 ML IV STA (21:24)
[2020-03-30 21:32] LABS: Hematocrit (blood only) 47.8 % (42-52); Hemoglobin 15.7 g/dL (14.0-18.0); Mean Corpuscular Hemoglobin 29.4 pg (25-34); Mean Corpuscular Hgb Conc 32.8 g/dL (32-36); Mean Corpuscular Volume 89.5 fL (80-100); Mean Platelet Volume 9.7 fL (7.4-10.4); Platelet Count 293 K/uL (130-400); RDW Standard Deviation 42.8 fL (36.4-46.3); Red Blood Count 5.34 M/uL (4.7-6.1); White Blood Count 15.41 K/uL (4.8-10.8)
[2020-03-30] MEDS ORDERED: HYDROmorphone INJ 1 MG/ML SYRINGE ONE (21:39)
[2020-03-30] MEDS ORDERED: ONDANSETRON INJ 2 MG/ML 2 ML VIAL ONE (21:39)
[2020-03-30] MEDS ORDERED: fentaNYL citrate 100 MCG/2 ML VIAL ONE (21:41)
[2020-03-30] MEDS ORDERED: SODIUM CHLORIDE 0.9% 1000ML 1,000 ML IV ONE (21:43)
[2020-03-30 21:49] LABS: Appearance Urine Cloudy (Clear); Bacteria Urine Automated Negative (Negative); Bilirubin Urine Negative (Negative); Blood Urine 3+ (Negative); Color Urine Yellow; Glucose Urine UA Negative (Negative); Ketones Urine Negative (Negative); Leukocyte Esterase Urine 2+ (Negative); Nitrite Urine Negative (Negative); Protein Urine Trace (Negative); Specific Gravity Urine 1.025 (1.000-1.030); Urobilinogen Urine Negative (Negative); WBC Urine Automated >30 /hpf (0-5)
[2020-03-30 21:55] LABS: BUN Creatinine Ratio 14.4 (10-20); Calcium 9.4 mg/dl (8.5-10.1); Creatinine Clr Calc Pharmacy 59.8 ml/min; Est GFR (African American) 54.3; Est GFR (Non-African American) 46.8; Potassium 4.5 mmol/L (3.5-5.1)
[2020-03-30 21:59] LABS: Mucus Urine Present (None Prsent)
[2020-03-30 22:15] LABS: Albumin Level 3.8 gm/dl (3.4-5.0); Bilirubin Direct 0.2 mg/dl (0-0.2); Bilirubin,Total 0.6 mg/dl (0.2-1); Total Protein 7.8 gm/dl (6.4-8.2)
[2020-03-30] MEDS ORDERED: ACETAMINOPHEN 1,000 MG/100 ML VIAL IV STA (22:39)
[2020-03-30] MEDS ORDERED: fentaNYL citrate 100 MCG/2 ML VIAL IV STA (23:55)
--- NOTE | 2020-03-31 00:46 | Emergency Department Note ---
History of Present Illness General Chief complaint: Flank Pain Stated complaint: LOWER RT ABD PAIN, CHEST PAIN, VOMITING Time Seen by Provider: 03/30/20 21:33 Source: patient Mode of arrival: ambulatory Limitations: no limitations History of Present Illness Maximum Pain Intensity: 10 This patient is a 60-year-old male who presents to the emergency department for evaluation of severe right lower quadrant abdominal pain and vomiting. Patient states that his symptoms started acutely about 5 hours prior to arrival. Patient developed a sudden onset of right lower quadrant abdominal pain and vomited 1 time. He states he now has severe pain in the right lower abdomen, right back and right testicle. He does report he has had some chest pain which started just prior to arrival which he feels is due to vomiting. He rates his pain a 10/10. He has not taken any medication for the symptoms. He denies any history of similar symptoms. He denies any fevers, urinary symptoms or changes in his bowel movements. Home Medications Home Medications Medication Instructions Recorded Confirmed Type aspirin [Ecotrin Low Strength] 81 mg PO QAM #30 tab 02/05/19 03/30/20 Rx metformin 1,000 mg tablet 1,000 mg PO BID 02/12/19 03/30/20 History atorvastatin 80 mg tablet 80 mg PO DAILY #90 tab 02/25/19 03/30/20 Rx losartan 25 mg tablet 25 mg PO DAILY #90 tab 02/25/19 03/30/20 Rx metoprolol tartrate 25 mg tablet 25 mg PO BID #180 tab 02/25/19 03/30/20 Rx citalopram 20 mg PO DAILY 03/30/20 03/30/20 History nitroglycerin [Nitrostat] 0.4 mg SUBLINGUAL DIRECTED PRN 03/30/20 03/30/20 History omega-3 fatty acids-vitamin E 1 cap PO BID 03/30/20 03/30/20 History [Fish Oil] ticagrelor [Brilinta] 90 mg PO BID 03/30/20 03/30/20 History Allergies Allergy/AdvReac Type Severity Reaction Status Date / Time morphine Allergy Mild Itching Verified 03/30/20 22:06 Iodinated Contrast Media Allergy Unknown Itching Verified 03/30/20 22:09 latex Allergy Unknown Unknown Verified 03/30/20 22:09 Past Med/Surg History Medical History (Updated 10/08/20 @ 05:47 by Mary Young PA-C) Diabetes HLD (hyperlipidemia) HTN (hypertension) Obesity (BMI 30.0-34.9) ST elevation OR (STEMI) Surgical History (Updated 03/31/20 @ 04:12 by Faraz Tidwell MD) Stented coronary artery Family History Other Coronary heart disease H/O heart artery stent Heart disease Hypertension Social History Smoking Status: Never smoker Hx Alcohol Use: No Hx Substance Use: No Preferred Language: Setswana Communication Ability: Effective Ldr Nurse Required: No Beliefs That Will Affect Care: None marital status: Current Living Situation: Spouse current occupational status: employed Feels Safe at Home: Yes Safety Concerns: Feels Safe At This Time Assistive Devices: Glasses Review of Systems A total of 10 systems reviewed and were otherwise negative Physical Exam Vital Signs Vital Signs - 24 hr 03/30/20 21:04 03/30/20 23:05 Temperature 37.3 C Temperature Source Oral Pulse Rate 71 Pulse Rate [Right] 56 L Pulse Rhythm [Right] Regular Pulse Strength [Right] Normal Respiratory Rate 24 16 Respiratory Effort / Characteristics Non-Labored Spontaneous Non-Labored Spontaneous Respiratory Depth Normal Normal Respiratory Pattern Regular Blood Pressure 170/93 H Blood Pressure [Right Arm] 152/88 H Blood Pressure Mean 118 Blood Pressure Mean [Right Arm] 109 Blood Pressure Position [Right Arm] Sitting Pulse Oximetry 98 100 Oxygen Delivery Method Room Air Room Air Sepsis Recent Fever Within 48 Hours No Sepsis New/Unexplained Change in Mental Status N/A Sepsis Action Taken by Nursing No Action Required VITALS: Vitals are noted on the nurse's note and reviewed by myself. GENERAL: This is a 60-year-old male, uncomfortable appearing, well-developed well-nourished. SKIN: The skin was without rashes. EARS: External auditory canals clear, tympanic membranes pearly isabel without erythema or effusion bilaterally. EYES: Pupils equal round and reactive to light and accommodation. MOUTH: Mucous membranes moist. Tonsils are not enlarged. Pharynx without erythema or exudate. NECK: Supple without nuchal rigidity. No lymphadenopathy. HEART: Regular rate and rhythm without murmurs gallops or rubs. LUNGS: Clear to auscultation bilaterally without wheezes, rales or rhonchi. ABDOMEN: Positive bowel sounds x 4. Soft, tenderness palpation in the right lower quadrant. Right CVA tenderness. No guarding or rebound tenderness. NEURO: Patient was alert and oriented to person place and time. Course Reevaluation(s) Reevaluation #1: Patient was reevaluated and feeling somewhat better, although still having some aching pain and also reports a headache. A dose of IV Tylenol was ordered. Reevaluation #2: Patient reevaluated and states that his pain is beginning to return. He rates his current discomfort a 5/10. An additional dose of fentanyl was ordered. Consultations Consultation #1: Dr. Tidwell [facility] hospitalist Administered Medications Hydromorphone HCl (Hydromorphone Inj 1 Mg/Ml Syringe) 1 mg IV Q3H PRN PRN Reason: Pain Stop: 04/14/20 01:46 Last Admin: 03/31/20 02:28 Dose: 1 mg Documented by: [id number] Sodium Chloride (Nss 1000ml) 1,000 mls @ 80 mls/hr IV .[id number] [facility] Stop: 04/30/20 01:46 Last Infusion: 03/31/20 04:02 Dose: 80 mls/hr Documented by: [id number] Infusion: 03/31/20 03:15 Dose: 0 mls/hr Documented by: [id number] Admin: 03/31/20 02:28 Dose: 80 mls/hr Documented by: [id number] Ceftriaxone Sodium 2,000 mg/ (Dextrose) 70 mls @ 100 mls/hr IV Q24H [facility]; Protocol Stop: 04/10/20 02:59 Last Infusion: 03/31/20 04:02 Dose: 0 mls/hr Documented by: [id number] Admin: 03/31/20 03:15 Dose: 100 mls/hr Documented by: [id number] Discontinued Medications Fentanyl Citrate (Fentanyl Citrate 100 Mcg/2 Ml Vial) Confirm Administered Dose 100 mcg .ROUTE .STK-MED ONE Stop: 03/30/20 21:42 Last Admin: 03/30/20 21:45 Dose: 100 mcg Documented by: [id number] Fentanyl Citrate (Fentanyl Citrate 100 Mcg/2 Ml Vial) 50 mcg IV NOW STA Stop: 03/30/20 23:56 Last Admin: 03/31/20 00:06 Dose: 50 mcg Documented by: [id number] Hydromorphone HCl (Hydromorphone Inj 1 Mg/Ml Syringe) Confirm Administered Dose 1 mg .ROUTE .STK-MED ONE Stop: 03/30/20 21:40 Last Admin: 03/30/20 21:45 Dose: Not Given Documented by: [id number] Hydromorphone HCl (Hydromorphone Inj 1 Mg/Ml Syringe) 1 mg IV NOW STA Stop: 03/31/20 04:37 Last Admin: 03/31/20 04:43 Dose: 1 mg Documented by: [id number] Sodium Chloride (Nss) 500 mls @ 999 mls/hr IV .Q31M STA Stop: 03/30/20 21:54 Last Infusion: 03/30/20 22:25 Dose: 0 mls/hr Documented by: [id number] Admin: 03/30/20 21:28 Dose: 999 mls/hr Documented by: [id number] Sodium Chloride (Nss 1000ml) 1,000 mls @ 999 mls/hr IV .Q1H1M ONE Stop: 03/30/20 22:43 Last Infusion: 03/30/20 23:03 Dose: 0 mls/hr Documented by: [id number] Admin: 03/30/20 21:46 Dose: 999 mls/hr Documented by: [id number] Acetaminophen (Ofirmev) 1,000 mg in 100 mls @ 400 mls/hr IV NOW STA Stop: 03/30/20 22:53 Last Infusion: 03/30/20 23:41 Dose: 0 mls/hr Documented by: [id number] Admin: 03/30/20 23:03 Dose: 400 mls/hr Documented by: [id number] Ondansetron HCl (Ondansetron Inj 2 Mg/Ml 2 Ml Vial) Confirm Administered Dose 4 mg .ROUTE .STK-MED ONE Stop: 03/30/20 21:40 Last Admin: 03/30/20 21:45 Dose: 4 mg Documented by: [id number] Medical Decision Making Differential Diagnosis Differential diagnosis includes renal calculus, pyelonephritis, musculoskeletal pain, ruptured AAA, aortic dissection, diverticulitis, perforated viscus, bowel obstruction, biliary pathology, pancreatitis, PE, pneumonia, pneumothorax, trauma, herpes zoster, malignancy, among others. Home Medications Current Medication List: was personally reviewed by me Laboratory Data Attestation: I reviewed the patient's lab results. Result diagrams: 03/30/20 21:15 03/30/20 21:15 Lab Results 03/30/20 03/30/20 03/30/20 Range/Units 21:15 21:15 21:15 WBC 15.41 H (4.8-10.8) K/uL RBC 5.34 (4.7-6.1) M/uL Hgb 15.7 (14.0-18.0) g/dL Hct 47.8 (42-52) % MCV 89.5 (80-100) fL MCH 29.4 (25-34) pg MCHC 32.8 (32-36) g/dL RDW Std Deviation 42.8 (36.4-46.3) fL RDW Coeff of [place] 13.0 (11.5-14.5) % Plt Count 293 (130-400) K/uL MPV 9.7 (7.4-10.4) fL Sodium 137 (136-145) mmol/L Potassium 4.5 (3.5-5.1) mmol/L Chloride 105 (98-107) mmol/L Carbon Dioxide 27 (21-32) mmol/L Anion Gap 5.0 (3-11) BUN 23 H (7-18) mg/dl Creatinine 1.59 H (0.6-1.4) mg/dl Est Cr Clr Drug Dosing 59.8 ml/min Est GFR ( Amer) 54.3 Est GFR (Non-Af Amer) 46.8 BUN/Creatinine Ratio 14.4 (10-20) Glucose 213 H (70-99) mg/dl Calcium 9.4 (8.5-10.1) mg/dl Total Bilirubin (0.2-1) mg/dl Direct Bilirubin (0-0.2) mg/dl AST (15-37) U/L ALT (12-78) U/L Alkaline Phosphatase (45-117) U/L Total Protein (6.4-8.2) gm/dl Albumin (3.4-5.0) gm/dl Urine Color Yellow Urine Appearance Cloudy A (Clear) Urine pH 5.0 (4.5-7.5) Ur Specific [place] 1.025 (1.000-1.030) Urine Protein Trace H (Negative) Urine Glucose (UA) Negative (Negative) Urine Ketones Negative (Negative) Urine Blood 3+ H (Negative) Urine Nitrite Negative (Negative) Urine Bilirubin Negative (Negative) Urine Urobilinogen Negative (Negative) Ur Leukocyte Esterase 2+ H (Negative) Urine WBC (Auto) >30 H (0-5) /hpf Urine RBC (Auto) 10-30 H (0-4) /hpf U Hyaline Cast (Auto) 5-10 H (0-5) /lpf U Epithel Cells (Auto) 5-10 H (0-5) /lpf Urine Bacteria (Auto) Negative (Negative) Urine Mucus Present A (None Prsent) Urine Yeast Not Reportable 03/30/20 Range/Units 21:15 WBC (4.8-10.8) K/uL RBC (4.7-6.1) M/uL Hgb (14.0-18.0) g/dL Hct (42-52) % MCV (80-100) fL MCH (25-34) pg MCHC (32-36) g/dL RDW Std Deviation (36.4-46.3) fL RDW Coeff of [place] (11.5-14.5) % Plt Count (130-400) K/uL MPV (7.4-10.4) fL Sodium (136-145) mmol/L Potassium (3.5-5.1) mmol/L Chloride (98-107) mmol/L Carbon Dioxide (21-32) mmol/L Anion Gap (3-11) BUN (7-18) mg/dl Creatinine (0.6-1.4) mg/dl Est Cr Clr Drug Dosing ml/min Est GFR ( Amer) Est GFR (Non-Af Amer) BUN/Creatinine Ratio (10-20) Glucose (70-99) mg/dl Calcium (8.5-10.1) mg/dl Total Bilirubin 0.6 (0.2-1) mg/dl Direct Bilirubin 0.2 (0-0.2) mg/dl AST 26 (15-37) U/L ALT 50 (12-78) U/L Alkaline Phosphatase 83 (45-117) U/L Total Protein 7.8 (6.4-8.2) gm/dl Albumin 3.8 (3.4-5.0) gm/dl Urine Color Urine Appearance (Clear) Urine pH (4.5-7.5) Ur Specific [place] (1.000-1.030) Urine Protein (Negative) Urine Glucose (UA) (Negative) Urine Ketones (Negative) Urine Blood (Negative) Urine Nitrite (Negative) Urine Bilirubin (Negative) Urine Urobilinogen (Negative) Ur Leukocyte Esterase (Negative) Urine WBC (Auto) (0-5) /hpf Urine RBC (Auto) (0-4) /hpf U Hyaline Cast (Auto) (0-5) /lpf U Epithel Cells (Auto) (0-5) /lpf Urine Bacteria (Auto) (Negative) Urine Mucus (None Prsent) Urine Yeast Imaging Data Attestation: I personally reviewed and interpreted this imaging study as follows: Radiologist's Impression: CT ABDOMEN & PELVIS Without Contrast: 4-5 mm stone in the right proximal ureter with mild obstructive changes. Cholecystectomy. Mild fatty liver. Bilateral nephrolithiasis. Left renal cyst. Unremarkable appendix. Heterogeneous prostate with calcification Radiologist: Bharath Menon M.D. ECG Data Attestation: I personally reviewed and interpreted this ECG as follows: Indication: + chest pain Rate (beats per minute): 59 Rhythm: + sinus bradycardia ECG Intervals/blocks: + Normal QRS ECG ST segments: + Normal ST segments Change: no significant change MDM Narrative The patient is a 60-year-old male who presents today complaining of right-sided abdominal/flank pain. Labs revealed leukocytosis of 15,000. Patient's creatinine is somewhat elevated at 1.59. Urinalysis noted to have hematuria. CT scan was performed and shows a 5 mm stone in the right proximal ureter with s econdary obstructive changes. Patient received multiple doses of IV pain medication and still had some persistent discomfort. Patient will be admitted to the [facility] Hospitalist service for further care. Impression & Plan Calculus of proximal right ureter Discharge Plan Visit Data Chief Complaint: Flank Pain Stated Complaint: LOWER RT ABD PAIN, CHEST PAIN, VOMITING ED Provider: Ilir Mendoza ED Midlevel Provider: Mary Young Discharge Problem: Calculus of proximal right ureter Patient Disposition: Admitted As Inpatient Discharge Instructions Interventions: ED Discharge Assessment Last Done: 03/31/20 01:22
[2020-03-31] MEDS ORDERED: SODIUM CHLORIDE 0.9% 1000ML 1,000 ML IV SCH (01:47)
[2020-03-31] MEDS: HYDROmorphone INJ 1 MG/ML SYRINGE IV PRN ×4 (02:28→21:29)
[2020-03-31] MEDS: cefTRIAXone SODIUM 2,000 MG in DEXTROSE 5% 50 ML IV SCH (03:15)
--- NOTE | 2020-03-31 04:17 | History & Physical Report ---
Date of Service March 31, 2020 Assessment & Plan (1) Calculus of proximal right ureter: 4.5 mm right proximal ureteral calculus/mild right hydroureteronephrosis- NPO NSS@100 mils per hour Follow urine culture and sensitivity Ceftriaxone 1 g IV daily Acetaminophen 1000 mg IV every 8 hours as needed for mild pain or temperature Dilaudid 1 mg IV every 3 hours PRN severe pain Famotidine 20 mg IV every 12 hours Consult urology Present on Admission?: Yes (2) Hydronephrosis of right kidney: See above Present on Admission?: Yes (3) Acute kidney injury: Creatinine 1.59 upon admission, with range 0.97-1.18. Postobstructive while on losartan. Holding losartan. NSS 100 mils per hour. Repeat laboratories in a.m. Present on Admission?: Yes (4) CAD (coronary artery disease), [place] coronary artery: CAD/hypertension/stented coronary artery on 02/03/2019- Hold aspirin, losartan and this evening's Brilinta dose. Continue metoprolol tartrate 25 mg p.o. twice daily with hold parameters Brilinta and aspirin to be resumed post procedure. Losartan can be resumed upon return of normal kidney function. Present on Admission?: Yes (5) Stented coronary artery: See above Present on Admission?: Yes (6) HTN (hypertension): See above Present on Admission?: Yes (7) HLD (hyperlipidemia): Hold atorvastatin 80 mg p.o. daily until post procedure Present on Admission?: Yes (8) DM II (diabetes mellitus, type II), controlled: Glucose 213 upon admission. Hold metformin. Place on Accu-Cheks before meals and at bedtime with NovoLog coverage per scale. Present on Admission?: Yes Admission and Anticipated Discharge Date Admission Date: March 31, 2020 History of Present Illness Chief Complaint: The patient presents to the emergency department with complaint of right flank, right lower quadrant pain and vomiting. Primary Care Provider: Moisés Morin The patient is a 60-year-old male with a past medical history including CAD, obesity, diabetes mellitus type 2, hyperlipidemia, hypertension and status post stented coronary artery on 02/03/2019. He presents with 5 hours of the acute development of severe right lower quadrant and right flank pain, with one episode of nausea and vomiting. While in the ED, his pain extended from his right lower quadrant to right lower back and right testicle. He denies any recent travels or sick exposures. He denies any personal or family history of kidney stones. Work-up in the emergency department included CT of abdomen pelvis which showed a 4.5 mm right proximal ureteral calculus with mild hydroureteronephrosis, fatty liver and prostatic calcifications. Significant laboratories include creatinine 1.59, and glucose of 213. His last dosing of Brilinta was on this morning of 03/30, and was to continue DAPT for at least 1 year from 02/03/2019. Allergies Allergy/AdvReac Type Severity Reaction Status Date / Time morphine Allergy Mild Itching Verified 03/30/20 22:06 Iodinated Contrast Media Allergy Unknown Itching Verified 03/30/20 22:09 latex Allergy Unknown Unknown Verified 03/30/20 22:09 Home Medications Home Medications Medication Instructions Recorded Confirmed Type aspirin [Ecotrin Low Strength] 81 mg PO QAM #30 tab 02/05/19 03/30/20 Rx metformin 1,000 mg tablet 1,000 mg PO BID 02/12/19 03/30/20 History atorvastatin 80 mg tablet 80 mg PO DAILY #90 tab 02/25/19 03/30/20 Rx losartan 25 mg tablet 25 mg PO DAILY #90 tab 02/25/19 03/30/20 Rx metoprolol tartrate 25 mg tablet 25 mg PO BID #180 tab 02/25/19 03/30/20 Rx citalopram 20 mg PO DAILY 03/30/20 03/30/20 History nitroglycerin [Nitrostat] 0.4 mg SUBLINGUAL DIRECTED PRN 03/30/20 03/30/20 History omega-3 fatty acids-vitamin E 1 cap PO BID 03/30/20 03/30/20 History [Fish Oil] ticagrelor [Brilinta] 90 mg PO BID 03/30/20 03/30/20 History Past Med/Surg History Medical History Diabetes DM II (diabetes mellitus, type II), controlled HLD (hyperlipidemia) HLD (hyperlipidemia) HTN (hypertension) HTN (hypertension) Obesity (BMI 30.0-34.9) ST elevation [place] (STEMI) Surgical History (Updated 03/31/20 @ 04:12 by Faraz Tidwell MD) Stented coronary artery Family History Other Coronary heart disease H/O heart artery stent Heart disease Hypertension Social History Smoking Status: Never smoker Hx Alcohol Use: No Hx Substance Use: No Preferred Language: Czech Communication Ability: Effective Electronic Imaging System Operator Required: No Beliefs That Will Affect Care: None marital status: Current Living Situation: Spouse current occupational status: employed Feels Safe at Home: Yes Safety Concerns: Feels Safe At This Time Assistive Devices: Glasses Review of Systems Review of Systems: The patient denies chest pain, palpitations, shortness of breath, dyspnea on exertion, cough, lower extremity swelling, sore throat, fevers, chills, sweats, diarrhea , constipation, blood in urine or stool, dysuria, urinary frequency or urgency, lightheadedness, dizziness, headache, memory loss, loss of consciousness, rash, abnormal bruising or bleeding, imbalance, focal or generalized weakness, numbness or tingling in arms or legs, generalized arthralgias or myalgias, neck pain, or night sweats. The review of systems is otherwise negative other than for that already noted a jeffery, and at least 10 systems have been reviewed. Physical Exam Physical Exam: The patient is awake, alert and oriented 3, well developed and well nourished, normocephalic and atraumatic, lying in bed and in mild to moderate acute distress. HEENT--PERRL, EOMI, mucous membranes and oropharynx dry. Neck--supple. No JVD. No bruits. Thyroid normal, trachea midline, no adenopathy. Heart--normal S1 and S2. No murmurs, rubs or gallops. Lungs--clear bilaterally, no respiratory distress, no accessory muscle use. Abdomen--normal bowel sounds and soft. Tender right flank, right lower quadrant and groin. Nondistended. Extremities--no cyanosis or clubbing. No edema. Dermatologic--normal skin turgor, normal color, no abnormal lymph nodes, no rash. Neurologic--cranial nerves II through XII grossly intact. Rheumatologic--normal range of motion. Psychiatric--normal affect. Results & Data Results & Data ([facility]) Vital Signs (Past 12 Hours) Vital Signs Temp Pulse Pulse Pulse Resp BP BP 03/31/20 02:40 60 129/72 03/31/20 01:48 98.1 F 58 L 18 03/31/20 01:22 74 16 152/88 H 03/30/20 23:05 56 L 16 03/30/20 21:04 99.1 F 71 24 170/93 H BP Pulse Ox 03/31/20 02:40 03/31/20 01:48 152/88 H 95 03/31/20 01:22 100 03/30/20 23:05 152/88 H 100 03/30/20 21:04 98 Laboratory Results Laboratory Results WBC 15.41 K/uL (4.8-10.8) H 03/30/20 21:15 RBC 5.34 M/uL (4.7-6.1) 03/30/20 21:15 Hgb 15.7 g/dL (14.0-18.0) 03/30/20 21:15 Hct 47.8 % (42-52) 03/30/20 21:15 MCV 89.5 fL (80-100) 03/30/20 21:15 MCH 29.4 pg (25-34) 03/30/20 21:15 MCHC 32.8 g/dL (32-36) 03/30/20 21:15 RDW Std Deviation 42.8 fL (36.4-46.3) 03/30/20 21:15 RDW Coeff of [place] 13.0 % (11.5-14.5) 03/30/20 21:15 Plt Count 293 K/uL (130-400) 03/30/20 21:15 MPV 9.7 fL (7.4-10.4) 03/30/20 21:15 Sodium 137 mmol/L (136-145) 03/30/20 21:15 Potassium 4.5 mmol/L (3.5-5.1) 03/30/20 21:15 Chloride 105 mmol/L (98-107) 03/30/20 21:15 Carbon Dioxide 27 mmol/L (21-32) 03/30/20 21:15 Anion Gap 5.0 (3-11) 03/30/20 21:15 BUN 23 mg/dl (7-18) H 03/30/20 21:15 Creatinine 1.59 mg/dl (0.6-1.4) H 03/30/20 21:15 Est Cr Clr Drug Dosing 59.8 ml/min 03/30/20 21:15 Est GFR ( Amer) 54.3 03/30/20 21:15 Est GFR (Non-Af Amer) 46.8 03/30/20 21:15 BUN/Creatinine Ratio 14.4 (10-20) 03/30/20 21:15 Glucose 213 mg/dl (70-99) H 03/30/20 21:15 POC Glucose 113 mg/dl (70-99) H 03/31/20 02:36 Calcium 9.4 mg/dl (8.5-10.1) 03/30/20 21:15 Total Bilirubin 0.6 mg/dl (0.2-1) 03/30/20 21:15 Direct Bilirubin 0.2 mg/dl (0-0.2) 03/30/20 21:15 AST 26 U/L (15-37) 03/30/20 21:15 ALT 50 U/L (12-78) 03/30/20 21:15 Alkaline Phosphatase 83 U/L (45-117) 03/30/20 21:15 Total Protein 7.8 gm/dl (6.4-8.2) 03/30/20 21:15 Albumin 3.8 gm/dl (3.4-5.0) 03/30/20 21:15 Urine Color Yellow 03/30/20 21:15 Urine Appearance Cloudy (Clear) A 03/30/20 21:15 Urine pH 5.0 (4.5-7.5) 03/30/20 21:15 Ur Specific [place] 1.025 (1.000-1.030) 03/30/20 21:15 Urine Protein Trace (Negative) H 03/30/20 21:15 Urine Glucose (UA) Negative (Negative) 03/30/20 21:15 Urine Ketones Negative (Negative) 03/30/20 21:15 Urine Blood 3+ (Negative) H 03/30/20 21:15 Urine Nitrite Negative (Negative) 03/30/20 21:15 Urine Bilirubin Negative (Negative) 03/30/20 21:15 Urine Urobilinogen Negative (Negative) 03/30/20 21:15 Ur Leukocyte Esterase 2+ (Negative) H 03/30/20 21:15 Urine WBC (Auto) >30 /hpf (0-5) H 03/30/20 21:15 Urine RBC (Auto) 10-30 /hpf (0-4) H 03/30/20 21:15 U Hyaline Cast (Auto) 5-10 /lpf (0-5) H 03/30/20 21:15 U Epithel Cells (Auto) 5-10 /lpf (0-5) H 03/30/20 21:15 Urine Bacteria (Auto) Negative (Negative) 03/30/20 21:15 Urine Mucus Present (None Prsent) A 03/30/20 21:15 Urine Yeast Not Reportable 03/30/20 21:15 Diagnostic Findings [facility] Patient: JOELLEN FRAUSTO (Male) : 62 Status: ER Date: 03/30/20 22:49 Room #: History: RIGHT SIDED GROIN PAIN, APPENDIX PRESENT Slices: [id number] Priors: Tech: Nubia Lara @ [phone] Exams: CT ABDOMEN & PELVIS Without Contrast Contrast: Accession Numbers: [id number] Preliminary Findings Only See Final Report For Complete Findings CT ABDOMEN & PELVIS Without Contrast: 4-5 mm stone in the right proximal ureter with mild obstructive changes. Cholecystectomy. Mild fatty liver. Bilateral nephrolithiasis. Left renal cyst. Unremarkable appendix. Heterogeneous prostate with calcification Radiologist: Bharath Menon M.D. Study ready at 23:01 and initial results transmitted at 23:07 *This report constitutes a preliminary interpretation only. Non-acute findings felt to be unrelated to the clinical presentation may not be discussed in this report. The study will be interpreted and a final report will be generated by the local Radiologist the following shift. To reach the hospital radiology department call [phone]. If a discrepancy is found between the preliminary and final interpretations of this study, please notify us via our Client Portal at [email or web address] can also fax this report with a description of the discrepancy, or include the final report, to our daytime fax number [phone].If faxing, please indicate the severity of discrepancy using one of the following categories: [ ] 1 - Agree/Informational [ ] 2 - Unlikely to Affect Management [ ] 3 - Possible Eventual Change of Management [ ] 4 - Probable Immediate Change of Management For all other patient related information, please fax us at [phone]. [id number] Code Status & VTE Plan Code Status Full code VTE Prophylaxis Plan VTE Prophylaxis will be ordered: Yes PG Care Time/CCT Total # of Minutes Spent Total Time Spent with Patient: Total time spent is greater than 50% in coordination of care (as documented) at patient's floor/unit and/or counseling patient: Coding Level of Care Code 65026 Initial Inpt Care Lvl 3 Diagnoses Calculus of proximal right ureter N20.1 Hydronephrosis of right kidney N13.30 Acute kidney injury N17.9 CAD (coronary artery disease), [place] coronary artery I25.10 Stented coronary artery Z95.5 HTN (hypertension) I10 HLD (hyperlipidemia) E78.5 DM II (diabetes mellitus, type II), controlled E11.9
[2020-03-31] MEDS ORDERED: HYDROmorphone INJ 1 MG/ML SYRINGE IV STA (04:36)
[2020-03-31] MEDS ORDERED: GLUCOSE 40% GEL 15 GM TUBE PO PRN (04:55)
[2020-03-31] MEDS ORDERED: GLUCOSE 10 TABS/TUBE PO PRN (04:55)
[2020-03-31] MEDS ORDERED: CARBOHYDRATES FOR HYPOGLYCEMIA PO PRN (04:55)
[2020-03-31] MEDS ORDERED: GLUCAGON FOR INJ 1 MG VIAL SQ PRN (04:55)
[2020-03-31] MEDS ORDERED: DEXTROSE 50% 50 ML SYRINGE IV PRN (04:55)
[2020-03-31] MEDS ORDERED: SODIUM CHLORIDE 0.9% 1000ML 1,000 ML IV ONE ×3 (06:12→06:23)
[2020-03-31] MEDS ORDERED: SODIUM CHLORIDE 0.9% 500 ML IV SCH (06:24)
[2020-03-31] MEDS ORDERED: PIPERACILL/TAZOBAC CONSULT ACTIVE PRN (06:25)
[2020-03-31] MEDS ORDERED: PIPERACILLIN/TAZOBACTAM 4.5 GM in DEXTROSE 5% 100 ML IV ONE (06:45)
[2020-03-31] MEDS: INSULIN ASPART 100 UNITS/ML 3 ML PEN SC SCH ×4 (06:52→21:14)
[2020-03-31 06:55] LABS: Basophils # (auto) 0.01 K/uL (0-0.2); Basophils % (auto) 0.1 %; Eosinophils # (auto) 0.05 K/uL (0-0.5); Eosinophils % (auto) 0.5 %; Hematocrit (blood only) 42.7 % (42-52); Hemoglobin 14.1 g/dL (14.0-18.0); Immature Granulocytes # (auto) 0.05 K/uL (0.00-0.02); Immature Granulocytes % (auto) 0.5 %; Lymphocytes # (auto) 1.54 K/uL (1.2-3.4); Lymphocytes % (auto) 16.7 %; Mean Corpuscular Hemoglobin 29.6 pg (25-34); Mean Corpuscular Volume 89.5 fL (80-100); Mean Platelet Volume 9.4 fL (7.4-10.4); Monocytes # (auto) 0.06 K/uL (0.11-0.59); Monocytes % (auto) 0.7 %; Neutrophils # (auto) 7.51 K/uL (1.4-6.5); Neutrophils % (auto) 81.5 %; Platelet Count 199 K/uL (130-400); RDW Standard Deviation 42.2 fL (36.4-46.3); Red Blood Count 4.77 M/uL (4.7-6.1); White Blood Count 9.22 K/uL (4.8-10.8)
[2020-03-31 07:10] LABS: Prothrombin Time 10.9 Seconds (9.0-12.0)
[2020-03-31 07:26] LABS: Albumin Level 3.2 gm/dl (3.4-5.0); BUN Creatinine Ratio 12.4 (10-20); Calcium 8.4 mg/dl (8.5-10.1); Creatinine Clr Calc Pharmacy 53.4 ml/min; Est GFR (Non-African American) 41.4; Phosphorus 4.6 mg/dl (2.5-4.9); Potassium 3.8 mmol/L (3.5-5.1)
[2020-03-31] MEDS ORDERED: INSULIN ASPART 100 UNITS/ML 3 ML PEN SC SCH (07:30)
--- NOTE | 2020-03-31 08:05 | CT Scan Report ---
CT SCAN OF THE ABDOMEN AND PELVIS WITHOUT CONTRAST CLINICAL HISTORY: Right lower quadrant abdominal pain and vomiting COMPARISON STUDY: 12/11/2016 TECHNIQUE: CT scan of the abdomen and pelvis was performed from the lung bases to the proximal femurs . Images are reviewed in the axial, sagittal, and coronal planes. IV contrast was not administered fo r this examination. A dose lowering technique was utilized adhering to the principles of ALARA. CT DOSE: 1163.50 mGy.cm FINDINGS: Lower chest: There are mild dependent atelectatic changes Liver: There is hepatic steatosis. No focal hepatic masses are visualized. Gallbladder: Surgically at Spleen: Normal in size and attenuation. Pancreas: Unremarkable. Adrenal glands: Unremarkable. Kidneys: There is 36 mm left renal cortical cyst. There is bilateral nephrolithiasis. The largest lef t renal calculus measures 5 mm. The largest right renal calculus measures 5 mm. There is mild right-s ided hydronephrosis and perinephric stranding. There is a 4 mm proximal right ureteral calculus. Bowel: There are no transition zones indicate bowel obstruction. There is no evidence of acute divert iculitis. There is no evidence of acute appendicitis. Peritoneum: There is no intraperitoneal free air or abdominal ascites. Vasculature: The abdominal aorta is normal in course and caliber. Adenopathy: None. Pelvic viscera: The bladder, and pelvic viscera are unremarkable. Skeletal structures: No destructive osseous lesions are seen. IMPRESSION: 1. Bilateral nephrolithiasis 2. Obstructing 4 mm proximal right ureteral calculus 3. Hepatic steatosis ACT 112: Negative or not required by law. Electronically signed by: Dago Ortega M.D. 03/31/2020 8:04 AM
--- NOTE | 2020-03-31 08:21 | Urology Consultation ---
Date of Consultation March 31, 2020 Assessment & Plan (1) Calculus of proximal right ureter: (2) Hydronephrosis of right kidney: 60 yo M admitted for right flank pain secondary to 4.5 mm proximal right ureteral stone and mild hydronephrosis. - Creatinine increased to 1.76 today - Keep NPO, plan for OR today for stent placement - Strain all urine Findings reviewed with Dr. Yun. Given his elevated creatinine and right renal colic in the context of an obstructing 4.5 mm right proximal ureteral stone, will proceed with OR for cystoscopy and right stent placement. Risks and benefits to be reviewed with patient by Dr. Yun. OR notified. Preoperative CXR and EKG completed while inpatient. Patient is on Ceftriaxone preoperatively. History of Present Illness Reason for Consultation: R proximal ureteral stone Attending Physician: Faraz Tidwell MD History of Present Illness 60 yo M admitted for right flank pain secondary to 4.5 mm proximal right ureteral stone and mild hydronephrosis. PMHx of CAD s/p coronary artery stent, obesity, diabetes, hypertension, hyperlipidemia. Patient presented to [facility] on 03/30 with right flank/abdominal pain and episode of nausea/vomiting. Lab work on admission: creatinine 1.59, WBC 15.41. UA with 10- 30 RBCs, >30 WBCs, 2+ Leuks, negative bacteria, urine culture collected. CT A/P demonstrated 4.5 mm proximal right ureteral stone with mild hydronephrosis. Bilateral nephrolithiasis. He was admitted for further evaluation and management. Patient examined at bedside. Sitting up in bed this AM. Feeling better since admission. Continues to have some right lower abdominal pain. Right flank pain improved. He is utilizing IV Dilaudid, providing relief. Mild nausea, no vomiting. He is NPO. No fevers. Reports some chills earlier this morning, now resolved. Voiding spontaneously. No dysuria or hematuria. Chart review: Creatinine 1.76 (03/31) WBC 9.22 (03/31) Hgb 14.1 (10.8) On IV Ceftriaxone UC&S pending This is his first stone. Denies family history of stones. Evaluated by urology in the past for sperm analysis. No additional concerns today. Allergies Allergy/AdvReac Type Severity Reaction Status Date / Time morphine Allergy Mild Itching Verified 03/30/20 22:06 Iodinated Contrast Media Allergy Unknown Itching Verified 03/30/20 22:09 latex Allergy Unknown Unknown Verified 03/30/20 22:09 Home Medications Home Medications Medication Instructions Recorded Confirmed Type aspirin [Ecotrin Low Strength] 81 mg PO QAM #30 tab 02/05/19 03/30/20 Rx metformin 1,000 mg tablet 1,000 mg PO BID 02/12/19 03/30/20 History atorvastatin 80 mg tablet 80 mg PO DAILY #90 tab 02/25/19 03/30/20 Rx losartan 25 mg tablet 25 mg PO DAILY #90 tab 02/25/19 03/30/20 Rx metoprolol tartrate 25 mg tablet 25 mg PO BID #180 tab 02/25/19 03/30/20 Rx citalopram 20 mg PO DAILY 03/30/20 03/30/20 History nitroglycerin [Nitrostat] 0.4 mg SUBLINGUAL DIRECTED PRN 03/30/20 03/30/20 History omega-3 fatty acids-vitamin E 1 cap PO BID 03/30/20 03/30/20 History [Fish Oil] ticagrelor [Brilinta] 90 mg PO BID 03/30/20 03/30/20 History Patient History Medical History Diabetes HLD (hyperlipidemia) HTN (hypertension) Obesity (BMI 30.0-34.9) ST elevation CT (STEMI) Surgical History (Updated 03/31/20 @ 04:12 by Faraz Tidwell MD) Stented coronary artery Family History Other Coronary heart disease H/O heart artery stent Heart disease Hypertension Social History Smoking Status: Never smoker Hx Alcohol Use: No Hx Substance Use: No Preferred Language: Upper Sorbian Communication Ability: Effective Customer Security Clerk Required: No Beliefs That Will Affect Care: None marital status: Current Living Situation: Spouse current occupational status: employed Feels Safe at Home: Yes Safety Concerns: Feels Safe At This Time Assistive Devices: Glasses Review of Systems Constitutional: as per Subjective / HPI Gastrointestinal: as per Subjective / HPI Genitourinary: + as per Subjective / HPI Physical Exam Constitutional: well developed, well nourished and + obese; no acute distress and not ill appearing Respiratory: normal respiratory effort and able to speak in complete sentences; no respiratory distress and no labored breathing Cardiovascular: Extremities: no calf tenderness and no pedal edema Gastrointestinal (Abdomen): Inspection/Auscultation: abdomen normal to insp ection; abdomen not distended Percussion/Palpation: abdomen soft; abdomen nontender and no guarding Musculoskeletal: Head/Neck/Chest: normocephalic and head atraumatic Extremities: extremities normal to inspection Skin: no rashes, warm and dry Neurologic: moves all extremities and awake Psychiatric: Orientation: alert and oriented x 3 Genitourinary: no CVA tenderness Results & Data ([facility]) Vital Signs (Past 12 Hours) Vital Signs Temp Pulse Pulse Pulse Pulse Resp BP 03/31/20 07:29 80 03/31/20 07:21 37.2 C 83 18 03/31/20 06:08 134 H 52 L 20 03/31/20 02:40 60 03/31/20 01:48 36.7 C 58 L 18 03/31/20 01:22 74 16 152/88 H 03/30/20 23:05 56 L 16 03/30/20 21:04 37.3 C 71 24 170/93 H BP BP Pulse Ox 03/31/20 07:29 149/69 H 03/31/20 07:21 133/75 97 03/31/20 06:08 79/51 L 82/55 L 97 03/31/20 02:40 129/72 03/31/20 01:48 152/88 H 95 03/31/20 01:22 100 03/30/20 23:05 152/88 H 100 03/30/20 21:04 98 PG Care Time/CCT Total # of Minutes Spent Total Time Spent with Patient: Total time spent is greater than 50% in coordination of care (as documented) at patient's floor/unit and/or counseling patient: Coding Level of Care Code 72596 Inpt Consult Level 3 Diagnoses Calculus of proximal right ureter N20.1 Hydronephrosis of right kidney N13.30
[2020-03-31] MEDS: METOPROLOL TARTRATE 25 MG TAB PO SCH ×2 (08:38→21:05)
[2020-03-31] MEDS: SODIUM CHLORIDE 0.9% 1000ML 1,000 ML IV SCH ×2 (08:39→18:18)
[2020-03-31] MEDS: ACETAMINOPHEN 1000 MG/100 ML IV IV PRN ×2 (11:46→23:14)
[2020-03-31] MEDS: PIPERACILLIN/TAZOBACTAM 3.375 GM in DEXTROSE 5% 100 ML IV SCH ×2 (12:05→20:25)
[2020-03-31] MEDS ORDERED: LIDOCAINE HCL 2% 2 ML VIAL/AMP(20MG/ML) INFIL ONE (12:35)
[2020-03-31] MEDS ORDERED: fentaNYL citrate 100 MCG/2 ML VIAL ONE (12:35)
[2020-03-31] MEDS ORDERED: MIDAZOLAM HCL 1 MG/ML 2ML VIAL ONE (12:35)
[2020-03-31] MEDS ORDERED: ePHEDrine sulfate 50 MG/ML SYR ONE (12:35)
[2020-03-31] MEDS ORDERED: PROPOFOL IV EMULSION 10 MG/ML 20 ML VIAL IV ONE ×2 (12:35→13:56)
[2020-03-31] MEDS ORDERED: PHENYLEPHRINE 100MCG/ML 5ML SYR ONE (12:35)
--- NOTE | 2020-03-31 13:34 | Anesthesiology Consultation ---
Date of Service March 31, 2020 Assessment & Plan Chart Review Chart Review: Acceptable Risk for Surgery and Patient NOT seen in Pre Admission Testing Consults Requested none ASA ASA3 Proposed Anesthesia Anesthesia Type: MAC Risk / Benefits Reviewed With: PT / POA / Parent / Guardian, Accepts Plan and Informed Consent Obtained Additional Comments: covid test neg History Surgery Operation Date: 03/31/20 14:35 Proposed Procedures p Cystoscopy, Right Stent Placement - Luis Ann MD Height/Weight Height: 5 ft 10 in Weight: 99.3 kg Allergies Allergy/AdvReac Type Severity Reaction Status Date / Time morphine Allergy Mild Itching Verified 03/31/20 13:16 Iodinated Contrast Media Allergy Unknown Itching Verified 03/31/20 13:16 latex Allergy Unknown Unknown Verified 03/31/20 13:16 Medications Home Medications Medication Instructions Recorded Confirmed Last Taken aspirin [Ecotrin Low Strength] 81 mg PO QAM #30 tab 02/05/19 03/30/20 Unknown metformin 1,000 mg tablet 1,000 mg PO BID 02/12/19 03/30/20 Unknown atorvastatin 80 mg tablet 80 mg PO DAILY #90 tab 02/25/19 03/30/20 Unknown losartan 25 mg tablet 25 mg PO DAILY #90 tab 02/25/19 03/30/20 Unknown metoprolol tartrate 25 mg tablet 25 mg PO BID #180 tab 02/25/19 03/30/20 Unknown citalopram 20 mg PO DAILY 03/30/20 03/30/20 Unknown nitroglycerin [Nitrostat] 0.4 mg SUBLINGUAL DIRECTED PRN 03/30/20 03/30/20 Unknown omega-3 fatty acids-vitamin E 1 cap PO BID 03/30/20 03/30/20 Unknown [Fish Oil] ticagrelor [Brilinta] 90 mg PO BID 03/30/20 03/30/20 Unknown Active Medications Generic Name Dose Route Start Last Admin Trade Name Freq PRN Reason Stop Dose Admin Acetaminophen 1,000 mg 03/31/20 01:47 03/31/20 11:46 Acetaminophen 1000 Mg/100 Ml Iv IV 04/03/20 01:46 1,000 mg Q8H PRN Administration Pain or Fever Hydromorphone HCl 1 mg 03/31/20 01:47 03/31/20 08:55 Hydromorphone Inj 1 Mg/Ml Syringe IV 04/14/20 01:46 1 mg Q3H PRN Administration Pain Ceftriaxone Sodium 2,000 mg/ 70 mls @ 100 mls/hr 03/31/20 03:00 03/31/20 04:02 Dextrose IV 04/10/20 02:59 Infused Q24H BRITTNY Infusion Protocol Piperacillin Sod/Tazobactam 115 mls @ 28.75 mls/hr 03/31/20 12:00 03/31/20 12:05 Sod 3.375 gm/ Dextrose IV 04/02/20 11:59 28.8 mls/hr Q8H BRITTNY Administration Protocol Sodium Chloride 1,000 mls @ 100 mls/hr 03/31/20 06:45 03/31/20 08:39 Nss 1000ml IV 04/30/20 06:44 100 mls/hr .Q10H BRITTNY Administration Insulin Aspart 0 units 03/31/20 06:00 03/31/20 12:18 Insulin Aspart 100 Units/Ml 3 Ml Pen SC 04/30/20 05:59 Not Given Q6 BRITTNY Metoprolol Tartrate 25 mg 03/31/20 09:00 03/31/20 08:38 Metoprolol Tartrate 25 Mg Tab PO 04/30/20 08:59 Not Given BID BRITTNY NPO Date Last Intake of Fluids: 03/30/20 Time Last Intake of Fluids: 21:00 Date Last Intake of Solids: 03/30/20 Time Last Intake of Solids: 21:00 Past Medical History Medical History Diabetes HLD (hyperlipidemia) HTN (hypertension) Obesity (BMI 30.0-34.9) ST elevation [place] (STEMI) Exercise / Class Metabolic Activity II 4-5 Yardwork/Stairs/Walk up hill Past Family History Family History Other Coronary heart disease H/O heart artery stent Heart disease Hypertension Past Surgical History Surgical History Stented coronary artery Past Anesthesia History No Hx of Anesthesia Complications and No Family Hx of Anesthesia Complications History of PONV No Hx of PONV and No Hx of Motion Sickness Social History Smoking Status: Never smoker Hx Alcohol Use: No Hx Substance Use: No substance use type: does not use Physical Exam Vital Signs Last Vital Signs Temp 36.4 C L 03/31/20 13:18 Pulse 66 03/31/20 13:18 Resp 20 03/31/20 13:18 BP 99/64 L 03/31/20 13:18 Pulse Ox 95 03/31/20 13:18 Constitutional + obese ENMT Mouth: no dentition abnormality Thyromental Distance: > or= 3.5 Finger Breadths Mallampati Class: II Neck normal visual inspection and trachea midline; neck extension not limited Respiratory normal respiratory effort Auscultation: lungs clear to auscultation bilaterally Cardiovascular Rate/Rhythm: regular rate and regular rhythm Heart Sounds: no murmur Vessels: no carotid bruit Musculoskeletal Spine: normal cervical ROM Extremities: extremities normal to inspection Neurologic moves all extremities Motor/Sensory: no sensory deficit Psychiatric Orientation: alert and oriented x 3 Testing Laboratory Results 03/31/20 06:39 03/31/20 06:39 PT 10.9 Seconds (9.0-12.0) 03/31/20 06:39 INR 1.0 (0.9-1.1) 03/31/20 06:39 Urine Color Yellow 03/30/20 21:15 Urine Appearance Cloudy (Clear) A 03/30/20 21:15 Urine pH 5.0 (4.5-7.5) 03/30/20 21:15 Ur Specific Metcalfe 1.025 (1.000-1.030) 03/30/20 21:15 Urine Protein Trace (Negative) H 03/30/20 21:15 Urine Glucose (UA) Negative (Negative) 03/30/20 21:15 Urine Ketones Negative (Negative) 03/30/20 21:15 Urine Nitrite Negative (Negative) 03/30/20 21:15 Ur Leukocyte Esterase 2+ (Negative) H 03/30/20 21:15 Urine WBC (Auto) >30 /hpf (0-5) H 03/30/20 21:15 Urine RBC (Auto) 10-30 /hpf (0-4) H 03/30/20 21:15 U Hyaline Cast (Auto) 5-10 /lpf (0-5) H 03/30/20 21:15 U Epithel Cells (Auto) 5-10 /lpf (0-5) H 03/30/20 21:15 Urine Bacteria (Auto) Negative (Negative) 03/30/20 21:15 03/31/20 03/31/20 03/31/20 12:04 05:57 02:36 POC Glucose 119 H 124 H 113 H Electrocardiogram Date: 03/31/20 Findings: + NSR @ (at 84)
[2020-03-31] MEDS ORDERED: ePHEDrine sulfate 50 MG/ML AMP IV PRN (13:36)
[2020-03-31] MEDS ORDERED: ATROPINE SULFATE 0.1 MG/ML 10ML SYR IV PRN (13:36)
--- NOTE | 2020-03-31 13:42 | History & Physical Bridge Note ---
Date of Service March 31, 2020 History & Physical Bridge Note I have examined the patient, reviewed the History & Physical and in the interval since the performance of the History & Physical I have noted the following changes of clinical significance: no changes noted
--- NOTE | 2020-03-31 14:10 | Operative Report ---
PG Post Operative Report Pre & Post Diagnosis Operation Date: 03/31/20 14:35 Pre-Op Diagnosis: Proximal right ureteral stone and mild hydronephrosis Post-Op Diagnosis: Proximal right ureteral stone and mild hydronephrosis I identified the patient and participated in the time-out.: Yes Procedure Operation Date: 03/31/20 14:35 Actual Procedures p Cystoscopy, Right Ureteral Stent Placement(Right) - Luis Ann MD Surgeon Carlos Ann MD Used Car Lot Attendant none Estimated Blood Loss 0 Findings Consistent with Post-Op Diagnosis Specimens none Description of Procedure The patient was identified in the preoperative holding area, appropriate informed consents were reviewed and completed and the patient was transferred to the operative suite. Upon arrival, appropriate antibiotics and anesthesia were administered and the patient was placed in dorsal lithotomy position and prepped and draped in sterile fashion. To begin the case I passed a 22 Panamanian cystoscope with 30 degree lens. Inspection revealed a healthy-appearing urethra. He has a moderately large prostate with a high bladder neck which was somewhat challenging to advance the scope beyond. After advancing the scope I inspected the bladder and found a healthy-appearing mucosa. I cannulated his right ureteral orifice with a sensor wire which advanced to the kidney without difficulty. I suspect the stone that was in the proximal ureter may have been pushed into the kidney based upon fluoroscopic evaluation. I placed a 6 Panamanian by 26 cm double-J ureteral stent seeing a good curl in the kidney as well as the bladder. The case was concluded and I emptied his bladder. There were no complications. I attest to the content of the Intraoperative Record and any orders documented therein. Any exceptions are noted below.
--- NOTE | 2020-03-31 14:36 | Fluoroscopy Report ---
FL KUB CLINICAL HISTORY: CYSTO RIGHT STENT COMPARISON STUDY: CT scan dated 03/30/2020 FLUOROSCOPY TIME: 4 seconds. NUMBER OF FLUOROSCOPIC IMAGES: 3 FINDINGS: 3 intraoperative fluoroscopic spot images demonstrate a guidewire and catheter which are in troduced into the right renal pelvis. The final image demonstrates the proximal pigtail of a right-si ded nephroureteral stent. There is right-sided nephrolithiasis. IMPRESSION: Fluoroscopic spot images obtained during a retrograde study with right-sided stent place ment. ACT 112: Negative or not required by law. Electronically signed by: Dago Ortega M.D. 03/31/2020 2:34 PM
--- NOTE | 2020-03-31 14:38 | Anesthesiology Progress Note ---
Date of Service March 31, 2020 Anesthesia Post Procedure Vital Signs Vital Signs: Temp Pulse Pulse Pulse Pulse Resp BP 03/31/20 14:30 62 17 03/31/20 14:20 68 17 03/31/20 14:12 36.2 C L 72 66 16 03/31/20 13:18 36.4 C L 66 20 03/31/20 07:29 80 03/31/20 07:21 37.2 C 83 18 03/31/20 06:08 134 H 52 L 20 03/31/20 02:40 60 03/31/20 01:48 36.7 C 58 L 18 03/31/20 01:22 74 16 152/88 H 03/30/20 23:05 56 L 16 03/30/20 21:04 37.3 C 71 24 170/93 H BP BP Pulse Ox 03/31/20 14:30 113/71 100 03/31/20 14:20 114/66 100 03/31/20 14:12 111/85 100 03/31/20 13:18 99/64 L 95 03/31/20 07:29 149/69 H 03/31/20 07:21 133/75 97 03/31/20 06:08 79/51 L 82/55 L 97 03/31/20 02:40 129/72 03/31/20 01:48 152/88 H 95 03/31/20 01:22 100 03/30/20 23:05 152/88 H 100 03/30/20 21:04 98 Pain Intensity Right Lower Abdomen: Pain Intensity: 7 Transfer of Care Handoff Completed per policy Notes Mental Status: alert / awake / arousable Patient Amnestic to Procedure: Yes Nausea / Vomiting: adequately controlled Pain: adequately controlled Airway Patency, RR, SpO2: stable & adequate BP & HR: stable & adequate Hydration State: stable & adequate Anesthetic Complications: no major complications apparent
[2020-03-31] MEDS ORDERED: Nursing to Pharmacy Communication SCH (15:30)
[2020-03-31] MEDS: ONDANSETRON INJ 2 MG/ML 2 ML VIAL IV PRN ×2 (15:35→21:28)
--- NOTE | 2020-03-31 17:42 | Hospitalist Progress Note ---
Date of Service March 31, 2020 Assessment & Plan (1) Calculus of proximal right ureter: Moreno Humphries is a 60 year old male with CAD s/p coronary artery stent last year, DM2, HTN, HLD who presented with right flank, abdomen, and groin pain, found to have a 4.5mm right proximal ureteral stone and mild hydronephrosis. Proximal right ureteral stone -stenting procedure today -f/u blood, urine cultures -continue ceftriaxone 2000mg IV q24h -continue zosyn 3.375g q8h -continue NS @ 100mL/hr -continue hydromorphone 1mg IV q3h prn HTN -continue metoprolol tartrate 25mg bid DM2 -continue ISS FENGI: diabetic diet DVT prophylaxis: not indicated Code status: full code Dispo: med/surg Admission and Anticipated Discharge Date Admission Date: March 31, 2020 Supervising Physician Co-Signing Physician Notes I also saw the patient and confirmed edwards portions of the history and exam. I agree with the impression and plan as noted above with the following additional: Upon exam mid morning, his pain is well controlled. He remains afebrile although two episodes of rigors post admission. Repeat WBC is improved Cr up to 1.76 Early Sepsis Rigors, leuckocytosis upon admission, hypotension, and tachycardia Treated with IVF, antibiotics LAKESHIA (obstructive) placement of stent should be definitive treatment IVF Daily BMP additional as above Subjective Saw patient at the bedside prior to his stenting procedure. He felt far better than when he came in; his abdominal pain was mild (2-3/10), no longer endorsed back or groin pain, and was relieved that his rigors had stopped. Reported eagerness to have his procedure. No other symptoms or concerns to report at that time. Review of Systems Respiratory: no cough and no hemoptysis Cardiovascular: no chest pain and no calf pain Gastrointestinal: no constipation and no diarrhea/loose stools Neurologic: no abnormal speech and no memory loss Physical Exam Constitutional: no acute distress and not ill appearing Respiratory: normal respiratory effort, lungs clear to auscultation Cardiovascular: RRR, no murmur, no edema Gastrointestinal (Abdomen): Inspection/Auscultation: normal bowel sounds Percussion/Palpation: abdomen soft; no guarding and no hepatosplenomegaly mild tenderness to palpation of the right upper and lower quadrants, no tenderness to palpation of the left upper and lower quadrants Musculoskeletal: no flank tenderness Results & Data Results & Data ([facility]) Vital Signs (Past 12 Hours) Vital Signs Temp Pulse Pulse Pulse Pulse Resp BP 03/31/20 17:10 36.9 C 69 16 107/66 03/31/20 16:10 36.9 C 62 16 114/70 03/31/20 15:40 56 L 16 103/65 03/31/20 14:50 56 L 14 111/76 03/31/20 14:40 73 15 124/76 03/31/20 14:30 62 17 113/71 03/31/20 14:20 68 17 114/66 03/31/20 14:12 36.2 C L 72 66 16 111/85 03/31/20 13:18 36.4 C L 66 20 99/64 L 03/31/20 07:29 80 149/69 H 03/31/20 07:21 37.2 C 83 18 133/75 03/31/20 06:08 134 H 52 L 20 79/51 L BP Pulse Ox 03/31/20 17:10 97 03/31/20 16:10 97 03/31/20 15:40 96 03/31/20 14:50 96 03/31/20 14:40 97 03/31/20 14:30 100 03/31/20 14:20 100 03/31/20 14:12 100 03/31/20 13:18 95 03/31/20 07:29 03/31/20 07:21 97 03/31/20 06:08 82/55 L 97 Resident Activity Tracking Resident Involvement: Resident Care Provided Care Provided: Adult Hospital Medicine
--- NOTE | 2020-03-31 17:43 | Electrocardiogram Report ---
Test Reason : Blood Pressure : / mmHG Vent. Rate : 059 BPM Atrial Rate : 059 BPM P-R Int : 146 ms QRS Dur : 070 ms QT Int : 412 ms P-R-T Axes : 038 -16 014 degrees QTc Int : 407 ms Sinus bradycardia Otherwise normal ECG When compared with ECG of 03-FEB-2019 14:35, No significant change was found Confirmed by Carlos Beaulieu ([id number]) on 03/31/2020 5:42:58 PM Referred By: REFERRED SELF Confirmed By:Julian Beaulieu
--- NOTE | 2020-03-31 17:46 | Electrocardiogram Report ---
Test Reason : Blood Pressure : / mmHG Vent. Rate : 084 BPM Atrial Rate : 084 BPM P-R Int : 140 ms QRS Dur : 072 ms QT Int : 374 ms P-R-T Axes : 038 -04 043 degrees QTc Int : 441 ms Normal sinus rhythm Normal ECG When compared with ECG of 30-MAR-2020 22:06, (unconfirmed) No significant change was found Confirmed by Carlos Beaulieu ([id number]) on 03/31/2020 5:45:58 PM Referred By: REFERRED SELF Confirmed By:Julian Beaulieu
[2020-04-01 00:25] VITALS: PULSE 54
[2020-04-01] MEDS: cefTRIAXone SODIUM 2,000 MG in DEXTROSE 5% 50 ML IV SCH (02:32)
[2020-04-01] MEDS: SODIUM CHLORIDE 0.9% 1000ML 1,000 ML IV SCH (02:32)
[2020-04-01] MEDS: PIPERACILLIN/TAZOBACTAM 3.375 GM in DEXTROSE 5% 100 ML IV SCH (03:40)
[2020-04-01 03:44] VITALS: TEMP 98.1
[2020-04-01 07:41] LABS: Basophils # (auto) 0.01 K/uL (0-0.2); Basophils % (auto) 0.1 %; Eosinophils # (auto) 0.08 K/uL (0-0.5); Eosinophils % (auto) 1.1 %; Hemoglobin 12.1 g/dL (14.0-18.0); Immature Granulocytes # (auto) 0.03 K/uL (0.00-0.02); Immature Granulocytes % (auto) 0.4 %; Lymphocytes # (auto) 2.03 K/uL (1.2-3.4); Mean Corpuscular Hemoglobin 30.1 pg (25-34); Mean Corpuscular Hgb Conc 33.6 g/dL (32-36); Mean Corpuscular Volume 89.6 fL (80-100); Mean Platelet Volume 9.9 fL (7.4-10.4); Monocytes # (auto) 0.99 K/uL (0.11-0.59); Monocytes % (auto) 13.7 %; Neutrophils # (auto) 4.11 K/uL (1.4-6.5); Neutrophils % (auto) 56.7 %; Platelet Count 172 K/uL (130-400); RDW Coefficient of Variation 13.3 % (11.5-14.5); RDW Standard Deviation 43.4 fL (36.4-46.3); Red Blood Count 4.02 M/uL (4.7-6.1); White Blood Count 7.25 K/uL (4.8-10.8)
[2020-04-01 07:52] VITALS: BP 113/68; O2SAT 98
[2020-04-01 07:54] LABS: Partial Thromboplastin Time 28.1 Seconds (21.0-31.0)
[2020-04-01 08:11] LABS: Albumin Level 2.6 gm/dl (3.4-5.0); BUN Creatinine Ratio 17.6 (10-20); Calcium 7.8 mg/dl (8.5-10.1); Creatinine Clr Calc Pharmacy 68.1 ml/min; Est GFR (African American) 64.4; Est GFR (Non-African American) 55.6; Magnesium 1.8 mg/dl (1.8-2.4); Potassium 3.8 mmol/L (3.5-5.1)
[2020-04-01] MEDS: METOPROLOL TARTRATE 25 MG TAB PO SCH (08:17)
[2020-04-01 08:21] LABS: Estimated Average Glucose 148 mg/dl; Hemoglobin A1C 6.8 % (4.5-5.6)
--- NOTE | 2020-04-01 08:53 | Urology Progress Note ---
Date of Service April 01, 2020 Assessment & Plan (1) Calculus of proximal right ureter: 60yo M who is s/p Cystoscopy, Right ureteral stent placement on 03/31/20 -Patient is doing well with improvement in symptoms -Afebrile, creatinine is improving -KUB ordered to determine if candidate for outpatient ESWL -Urine culture is prelim positive - Recommend continue broad spectrum antibiotics pending final culture results -Recommend home with PO antibiotics, Flomax, and pain control -Patient is stable for discharge from a perspective -Will arrange outpatient follow-up in 1-2 weeks to discuss definitive stone management -Patient in agreement with above plan Thank you for allowing us to participate in the acute care of Mr. Tineo. Please reconsult us with additional questions, concerns or changes in patient status. Admission and Anticipated Discharge Date Admission Date: March 31, 2020 Subjective 60yo M admitted for right flank pain secondary to 4.5 mm proximal right ureteral stone and mild hydronephrosis POD#1 s/p Cystoscopy, Right Ureteral Stent Placement Patient examined at bedside this AM Awake, resting in bed Doing well post procedure Denies any fevers or chills Tolerating PO diet without nausea or vomiting Minimal stent discomfort Mild hematuria and dysuria as expected Continues to strain all urine Ambulating independently Chart Review: Afebrile WBC 7.25 Cr 1.38 Hgb 12.1 Urine culture - prelim positive Continues on IV Zosyn Review of Systems Constitutional: as per Subjective / HPI Gastrointestinal: as per Subjective / HPI Genitourinary: + as per Subjective / HPI Physical Exam Constitutional: well developed and well nourished; no acute distress and not ill appearing Respiratory: normal respiratory effort and able to speak in complete sentences Gastrointestinal (Abdomen): Inspection/Auscultation: abdomen normal to inspection; abdomen not distended Musculoskeletal: Head/Neck/Chest: normocephalic Neurologic: moves all extremities and awake; not confused Psychiatric: Orientation: alert, oriented x 3 and cooperative Results & Data ([place]) Vital Signs (Past 12 Hours) Vital Signs Temp Pulse Resp BP BP Pulse Ox 04/01/20 07:51 36.7 C 54 L 18 113/68 98 04/01/20 03:40 36.7 C 54 L 16 102/59 L 94 03/31/20 23:16 36.4 C L 54 L 16 113/70 95 03/31/20 21:00 36.5 C 60 18 139/81 96 PG Care Time/CCT Total # of Minutes Spent Total Time Spent with Patient: Total time spent is greater than 50% in coordination of care (as documented) at patient's floor/unit and/or counseling patient: Coding Level of Care Code None Diagnoses Calculus of proximal right ureter N20.1
[2020-04-01] MEDS: INSULIN ASPART 100 UNITS/ML 3 ML PEN SC SCH ×2 (09:08→13:17)
--- NOTE | 2020-04-01 09:41 | XRay Report ---
KUB CLINICAL HISTORY: Nephrolithiasis. FINDINGS: An AP supine abdominal radiograph is correlated with abdominal CT dated 03/30/2020. There is a nonobstructed abdominal bowel gas pattern. Cholecystectomy clips are seen in the right upper quadr ant. A right ureteral stent is in place. No calcifications are clearly identified along the course of the stent. A 6 cm nonobstructing calculus projects over the right kidney and a 5 mm nonobstructing c alculus projects over the left kidney. Prostatic calcifications are noted in the pelvis. The bony str uctures appear intact. IMPRESSION: 1. A right ureteral stent is in place. No calcifications are clearly seen along the course of the landon nt. 2. Bilateral nonobstructing renal calculi as above. Electronically signed by: Bret Infante M.D. 04/01/2020 9:39 AM
--- NOTE | 2020-04-01 09:45 | Hospitalist Progress Note ---
Date of Service April 01, 2020 Assessment & Plan (1) Calculus of proximal right ureter: Moreno Humphries is a 60 year old male with CAD s/p coronary artery stent last year, DM2, HTN, HLD who presented with right flank, abdomen, and groin pain, found to have a 4.5mm right proximal ureteral stone and mild hydronephrosis. Proximal right ureteral stone -stenting procedure today -f/u blood, urine cultures -continue ceftriaxone 2000mg IV q24h -continue zosyn 3.375g q8h -continue NS @ 100mL/hr -continue hydromorphone 1mg IV q3h prn HTN -continue metoprolol tartrate 25mg bid DM2 -continue ISS FENGI: diabetic diet DVT prophylaxis: not indicated Code status: full code Dispo: med/surg Admission and Anticipated Discharge Date Admission Date: March 31, 2020 Results & Data Results & Data ([facility]) Vital Signs (Past 12 Hours) Vital Signs Temp Pulse Resp BP Pulse Ox 04/01/20 03:40 36.7 C 54 L 16 102/59 L 94 03/31/20 23:16 36.4 C L 54 L 16 113/70 95 03/31/20 21:00 36.5 C 60 18 139/81 96
[2020-04-01] MEDS ORDERED: ATORVASTATIN 40 MG TAB PO SCH (10:00)
--- NOTE | 2020-04-01 16:28 | Discharge Summary ---
Date of Service April 01, 2020 Admission HPI Per Admitting Provider The patient is a 60-year-old male with a past medical history including CAD, obesity, diabetes mellitus type 2, hyperlipidemia, hypertension and status post stented coronary artery on 02/03/2019. He presents with 5 hours of the acute development of severe right lower quadrant and right flank pain, with one episode of nausea and vomiting. While in the ED, his pain extended from his right lower quadrant to right lower back and right testicle. He denies any recent travels or sick exposures. He denies any personal or family history of kidney stones. Work-up in the emergency department included CT of abdomen pel vis which showed a 4.5 mm right proximal ureteral calculus with mild hydroureteronephrosis, fatty liver and prostatic calcifications. Significant laboratories include creatinine 1.59, and glucose of 213. His last dosing of Brilinta was on this morning of 03/30, and was to continue DAPT for at least 1 year from 02/03/2019. Admission Exam Per Admitting Provider The patient is awake, alert and oriented 3, well developed and well nourished, normocephalic and atraumatic, lying in bed and in mild to moderate acute distress. HEENT--PERRL, EOMI, mucous membranes and oropharynx dry. Neck--supple. No JVD. No bruits. Thyroid normal, trachea midline, no adenopathy. Heart--normal S1 and S2. No murmurs, rubs or gallops. Lungs--clear bilaterally, no respiratory distress, no accessory muscle use. Abdomen--normal bowel sounds and soft. Tender right flank, right lower quadrant and groin. Nondistended. Extremities--no cyanosis or clubbing. No edema. Dermatologic--normal skin turgor, normal color, no abnormal lymph nodes, no rash. Neurologic--cranial nerves II through XII grossly intact. Rheumatologic--normal range of motion. Psychiatric--normal affect. Principal Diagnosis Right ureteral stone, hydronephrosis, UTI Discharge Exam Constitutional no acute distress and not ill appearing Respiratory normal respiratory effort, lungs clear to auscultation Cardiovascular RRR, no murmur, no edema Gastrointestinal (Abdomen) Inspection/Auscultation: normal bowel sounds Percussion/Palpation: abdomen soft; no guarding and no hepatosplenomegaly mild tenderness to palpation Musculoskeletal no flank tenderness Discharge Data Allergies Allergy/AdvReac Type Severity Reaction Status Date / Time morphine Allergy Mild Itching Verified 03/31/20 13:16 Iodinated Contrast Media Allergy Unknown Itching Verified 03/31/20 13:16 latex Allergy Unknown Unknown Verified 03/31/20 13:16 Consultations 03/31/20 00:09 ED Decision to Admit Stat 03/31/20 01:47 Consult Case Management - Discharge Planning Routine Consult Urology Routine Procedures Performed Operation Date: 03/31/20 14:35 Actual Procedures p Cystoscopy, Right Ureteral Stent Placement(Right) - Luis Ann MD Ordered Studies 03/30/20 21:44 CT abd pelvis wo con Urgent 03/31/20 FL KUB Routine 03/31/20 13:50 FL fluoroscopy <1hr Routine Hospital Course (1) Calculus of proximal right ureter: Moreno Humphries is a 60 year old male with CAD s/p coronary artery stent last year, DM2, HTN, HLD who presented to the ED on 03/30/2020 with a five-hour history of severe right flank pain, right-sided abdominal and groin pain, nausea, and vomiting. He had one episode of rigors lasting around 15 minutes with an episode of hypotension and bradycardia that resolved with atropine administration. A 4.5mm right proximal ureteral stone and mild hydronephrosis we re found on imaging. He improved symptomatically with IV fluids and opioid painkiller administration. He was found to have a UTI, and was treated empirically with IV antibiotics. The following day, he had a right ureteral stent placed. He tolerated the procedure well and there were no complications. The final urine culture grew only S. aureus. By 04/01/2020 his symptoms had largely resolved, with only mild abdominal pain and burning with urination remaining. Urology cleared him for discharge, and he was dcharged on 04/01/2020 with a three-day course of keflex to complete a five-day course of treatment for his UTI. Proximal right ureteral stone -stent placed on 03/31/2020; tolerated procedure well, no complications -did not require pain control on day of discharge -follow-up appointment with [facility] urology scheduled for 1-2 weeks UTI -discharged with a three-day course of keflex for a total of five days of antibiotic treatment HTN -continue metoprolol tartrate 25mg bid DM2 -managed with sliding scale insulin inpatient; his glucose levels were within goal limits during his stay -recommended returning to home medication regimen upon discharge which is metformin 1000mg PO bid -discharged accu-check monitor, lancet, and test strips for home monitoring HLD -continued patient's home atorvastatin 80mg PO qd -continued patients ASA 81mg qd -continued patients brilinta 90mg PO bid FENGI: diabetic, heart healthy diet DVT prophylaxis: not indicated Code status: full code Dispo: discharged Total Time Total Time Spent Total Time Spent (In Minutes): see attending documentation Discharge Plan Discharge Items Patient Disposition: Home - Self-Care Reason For Visit: 4.5mm R PROXIMAL URETERAL CALCULUS/MILD R HYDRO, A Discharge Diagnosis: Right ureteral stone, mild hydronephrosis, UTI Activity: Resume your previous activity Non-emergency contact: Primary Care Provider Call non-emergency contact if: you have any medication questions, your symptoms worsen and you have a fever Follow-up/Referrals: Anyi Cochran CRNP [Nurse Practitioner] - ('s office will call patient with appointment date and time) Moisés Morin M.D. [Primary Care Provider] - 04/07/20 10:15 am (Joe Arriaga PA-C) Diet: Carb Count or DM1 and Heart Healthy Addtl Attending Provider Instructions: You were admitted for a kidney stone. The urology team surgically placed a stent near your kidney to treat this. We also found bacteria in your urine (also known as a urinary tract infection or UTI) and treated you for this with IV antibiotics. Your kidney stone symptoms have improved, and the UTI can be treated with oral antibiotics. This means you can finish treating the UTI at home and do not have to stay in the hospital. We sent the medicine to your pharmacy. * Take Keflex 250mg twice daily for three more days. After the third day, discontinue taking this medicine. We also sent blood glucose monitoring supplies to your pharmacy. We did not discover any changes in your diabetes while you were in the hospital, and your A 1c is still at a good level. We are not making any changes to your diabetes medicine. However, we do recommend that all patients with diabetes check their blood glucose level at least once or twice a week in order to monitor your health. We also recommend that you keep a log of your blood sugar levels -- when you check your blood glucose level, write down the date and time, and what the blood glucose level was. This is very valuable information to show your primary care physician when you see them for routine check-ups or for illness visits. This information will help your primary care physician monitor your health more closely. You will have a follow-up appointment with urology ([facility]) in 1-2 weeks. It is very important that you attend this appointment. Also follow up with your primary care physician within the next couple weeks. If you have any new or concerning symptoms, please call your primary care physician. If you are experiencing an emergency, call 911 or go to the closest emergency department. Pending Studies at Discharge: No Stand-Alone Forms: [facility], Sm[facility] Cess[facility] Medications and DC Order Prescriptions: New (DME) blood-glucose meter [Accu-Chek Guide Glucose Meter] Misc See Rx Instructions .ROUTE .MEDSUPPLY Qty: 1 RF: 0 (DME) lancets [Accu-Chek Fastclix Lancet Drum] Misc See Rx Instructions .ROUTE .MEDSUPPLY Qty: 100 RF: 0 (DME) Accu-Chek Guide test strips Strip See Rx Instructions .ROUTE .MEDSUPPLY Qty: 10 RF: 0 cefuroxime axetil 250 mg tablet 250 mg PO BID 3 Days Qty: 6 RF: 0 Continued atorvastatin 80 mg tablet 80 mg PO DAILY Qty: 90 RF: 2 losartan 25 mg tablet 25 mg PO DAILY Qty: 90 RF: 2 metoprolol tartrate 25 mg tablet 25 mg PO BID Qty: 180 RF: 3 metformin 1,000 mg tablet 1,000 mg PO BID RF: 0 aspirin [Ecotrin Low Strength] 81 mg Tablet,Delayed Release (Dr/Ec) 81 mg PO QAM Qty: 30 RF: 0 citalopram 20 mg tablet 20 mg PO DAILY RF: 0 Brilinta 90 mg tablet 90 mg PO BID RF: 0 nitroglycerin [Nitrostat] 0.4 mg tablet, sublingual 0.4 mg sublingual DIRECTED PRN (Reason: Chest Pain) RF: 0 omega-3 fatty acids-vitamin E 1,000 mg Capsule 1 cap PO BID RF: 0 Discharge Orders: Discharge Order (Routine); Ordered 04/01/20 Ordered By: Javon Simmons Admission Data Admit Date/Time: 03/31/20 00:59 Attending Provider: Anant Altamirano. Admit Provider: Theo Bateman Primary Care Provider: Moisés Morin Other Providers: Faraz Tidwell ; Jayce Barrios Other Interventions: Discharge Summary Assessment (RN) Last Done: 04/01/20 14:10 Supervising Physician Co-Signing Physician Notes Patient seen and examined with PGY-1 Dr. Simmons. Agree with history, exam findings, assessment and plan of care as outlined. In brief, Mr. Humphries is a 60 year old male with hx of CAD (stent last year) DM, HTN, HLD admitted with right proximal ureteral stone and mild hydronephrosis. No overnight events. Pain is well controlled. Notes some dysuria and blood tinged urine. Eager to go home. Nursing notes, vital signs, labs and imaging reviewed. Heart with regular rate and rhythm. Lungs are clear to auscultation. No CVA tenderness. Minimal tenderness in the RLQ. 1. Nephrolithiasis. S/p ureteral stent on . Urine culture grew out levin sensitive staph aureus. Discharge home on cefuroxime. 2. HTN/CAD. Continue home metoprolol 25mg BID. Restart home atorvastatin 80mg, ASA and Brillinta. 3. DM. SSI. Holding home metformin 1000mg BID. Can restart metformin on discharge. Met with DM educator recommending checking glucose levels once per day. 4. LAKESHIA. Post-renal. Cr 1.76?1.38. Previous baseline 1. Holding home losartan, but he can restart this on discharge as his Cr is improving. Dispo: discharge home today I personally spent 35 minutes discharge planning for this patient. Resident Activity Tracking Resident Involvement: Resident Care Provided Care Provided: Adult Hospital Medicine
== END 2020-04-01 16:49 | disposition home or self-care (01) ==
LOC: ED 21:03 → SUATTDRO 03-31 00:59 → 3W 03-31 00:59 → INTOOBSV 03-31 00:59 → 3W 03-31 01:22
DX: Z95.5 Presence of coronary angioplasty implant and graft; Z91.040 Latex allergy status; E11.9 Type 2 diabetes mellitus without complications; I25.10 Atherosclerotic heart disease of native coronary artery without angina pectoris; E78.5 Hyperlipidemia, unspecified; Z91.041 Radiographic dye allergy status; N17.9 Acute kidney failure, unspecified; N39.0 Urinary tract infection, site not specified; Z79.84 Long term (current) use of oral hypoglycemic drugs; Z79.82 Long term (current) use of aspirin; I10 Essential (primary) hypertension; E66.9 Obesity, unspecified; Z88.5 Allergy status to narcotic agent; N20.1 Calculus of ureter; I25.2 Old myocardial infarction; Z68.31 Body mass index [BMI] 31.0-31.9, adult; Z79.899 Other long term (current) drug therapy; N13.30 Unspecified hydronephrosis